=== PATIENT | male | born 1940 | race Caucasian/White ===

== ENCOUNTER 2019-07-09 13:30 | Emergency (ER) | payer MEDICARE, OTHER ==
[~2019-07-09] VITALS: Ht 177.8 cm; Wt 86.2 kg
--- OUTSIDE RECORDS SUMMARY | ~2019-07-09 | XMS | Encounter Summary ---
Demographics + + + | Address | [address] | | | [place] [address] | + + + | Home Phone | | + + + | Preferred Language | Unknown | + + + | Marital Status | | + + + | Uatsdin Affiliation | MET | + + + | Race | White | + + + | Ethnic Group | Not or | + + + Author + + + | Author | [facility] | + + + | Organization | [facility] | + + + | Address | Unknown | + + + | Phone | Unavailable | + + + Support + + + + + | Name | Relationship | Address | Phone | + + + + + | Mary Jane Thompson | ECON | [address] | | | | | [place] | | | | | [address] | | + + + + + | Hansel Thompson | ECON | Unknown | | + + + + + | Brtitany Thompson | ECON | Unknown | | + + + + + Care Team Providers + +------+ + | Care Inclusion Internship Name | Role | Phone | + +------+ + | Alex Hernandez MD | PCP | | + +------+ + Reason for Visit + + + | Reason | Comments | + + + | Follow-up encounter | | + + + | Lab Results | | + + + Encounter Details +--------+ + + + + | Date | Type | Department | Care Team | Description | +--------+ + + + + | 04/25/ | Telephone | Otolaryngology | Maritza Phelan, | Follow-up encounter; | | 2012 | | Thyroid Services at | MD [address] | Lab Results | | | | [address] | [facility] | | | | | [address] | [place], [place] | | | | | Mailcode: [address]01 | [address] | | | | | [facility] | [phone] | | | | | [place], [place] | | | | | | [address] | | | | | | [phone] | | | +--------+ + + + + Social History + +-------+ +--------+------+ | Tobacco Use | Types | Packs/Day | Years | Date | | | | | Used | | + +-------+ +--------+------+ | Never Smoker | | | | | + +-------+ +--------+------+ + +---+---+---+ | Smokeless Tobacco: | | | | | Never Used | | | | + +---+---+---+ + + +---------+ + | Alcohol Use | Drinks/Week | oz/Week | Comments | + + +---------+ + | Yes | 1 Standard drinks | 0.8 | | | | or equivalent | | | + + +---------+ + + + + | Sex Assigned at | Date Recorded | | | | + + + | Not on file | | + + + + + + + | Job Start Date | Occupation | Industry | + + + + | Not on file | Not on file | Not on file | + + + + + + + + | Travel History | Travel Start | Travel End | + + + + + + | No recent travel history available. | + + documented as of this encounter Plan of Treatment Not on filedocumented as of this encounter Procedures + +--------+ + + + | Procedure Name | Priori | Date/Time | Associated Diagnosis | Comments | | | ty | | | | + +--------+ + + + | POTASSIUM, PLASMA | Routin | 05/23/2013 | | Results for this | | | e | | | procedure are in the | | | | | | results section. | + +--------+ + + + | COMPLETE METABOLIC | Routin | 05/16/2013 | | Results for this | | SET | e | | | procedure are in the | | (NA,K,CL,CO2,BUN,CRE | | | | results section. | | AT,GLUC,CA,AST,ALT,B | | | | | | KAYDEN TOTAL,ALK | | | | | | PHOS,ALB,PROT TOTAL) | | | | | + +--------+ + + + | CBC ONLY | Routin | 05/16/2013 | | Results for this | | | e | | | procedure are in the | | | | | | results section. | + +--------+ + + + documented in this encounter Results POTASSIUM, PLASMA (05/23/2013) + +-------+ + + + | Component | Value | Ref Range | Performed | Pathologist | | | | | At | Signature | + +-------+ + + + | POTASSIUM | 3.7 | 3.6 - 5.1 | [facility] | | | | | mmol/L | LAB - | | | | | | [facility] | | + +-------+ + + + + + | Specimen | + + | Blood - Blood | + + + + + + + | Performing | Address | City/State/Zipcode | Phone Number | | Organization | | | | + + + + + | [facility] - | [address] | [place] | [phone] | | [facility] | | | | + + + + + CBC ONLY (05/16/2013) + + + + + + | Component | Value | Ref Range | Performed | Pathologist | | | | | At | Signature | + + + + + + | WHITE CELL | 9.8 | 4.5 - 11.0 K/cu | [facility] | | | COUNT | | mm | LAB - | | | | | | [facility] | | + + + + + + | RED CELL | 4.71 | 4.3 - 5.7 M/cu | [facility] | | | COUNT | | mm | LAB - | | | | | | [facility] | | + + + + + + | HEMOGLOBIN | 16.5 | 13.5 - 18.0 | [facility] | | | | | g/dL | LAB - | | | | | | [facility] | | + + + + + + | HEMATOCRIT | 48.8 | 41 - 50 % | [facility] | | | | | | LAB - | | | | | | [facility] | | + + + + + + | MCV | 103.6 (A) | 81 - 99 fL | [facility] | | | | | | LAB - | | | | | | [facility] | | + + + + + + | MCH | 35 (A) | 27 - 33 pg | [facility] | | | | | | LAB - | | | | | | [facility] | | + + + + + + | MCHC | 34 | 30 - 36 g/dL | [facility] | | | | | | LAB - | | | | | | [facility] | | + + + + + + | PLATELET | 255 | 140 - 440 K/cu | [facility] | | | COUNT | | mm | LAB - | | | | | | [facility] | | + + + + + + | NEUTROPHIL | 80.1 (A) | 39 - 80 % | [facility] | | | % | | | LAB - | | | | | | [facility] | | + + + + + + | LYMPHOCYTE | 14.1 (A) | 24 - 44 % | [facility] | | | % | | | LAB - | | | | | | [facility] | | + + + + + + | MONOCYTE % | 3.2 | 0 - 12 % | [facility] | | | | | | LAB - | | | | | | [facility] | | + + + + + + | EOS % | 2.3 | 0 - 6 % | [facility] | | | | | | LAB - | | | | | | [facility] | | + + + + + + | BASO % | 0.4 | 0 - 2 % | [facility] | | | | | | LAB - | | | | | | [facility] | | + + + + + + | RDW | 15.1 (A) | 10.5 - 15.0 % | [facility] | | | | | | LAB - | | | | | | [facility] | | + + + + + + + + | Specimen | + + | Blood - Blood | + + + + + + + | Performing | Address | City/State/Zipcode | Phone Number | | Organization | | | | + + + + + | [facility] - | [address] | [place], [place] | [phone] | | [facility] | | | | + + + + + COMPLETE METABOLIC SET (NA,K,CL,CO2,BUN,CREAT,GLUC,CA,AST,ALT,BILI TOTAL,ALK PHOS,ALB,PROT TOTAL) (05/16/2013) + +---------+ + + + | Component | Value | Ref Range | Performed | Pathologist | | | | | At | Signature | + +---------+ + + + | GLUCOSE, | 80 | 70 - 100 mg/dL | [facility] | | | PLASMA | | | LAB - | | | (LAB) | | | [facility] | | + +---------+ + + + | BUN/CREATIN | 15.2 | 6.0 - 28.6 | [facility] | | | INE RATIO | | | LAB - | | | | | | [facility] | | + +---------+ + + + | CREATININE | 1.32 | 0.50 - 1.50 | [facility] | | | PLASMA | | mg/dL | LAB - | | | (LAB) | | | [facility] | | + +---------+ + + + | TOTAL | 6.1 | 6.0 - 8.0 g/dL | [facility] | | | PROTEIN, | | | LAB - | | | PLASMA | | | [facility] | | | (LAB) | | | | | + +---------+ + + + | ALBUMIN, | 4.1 | 3.5 - 5.0 g/dL | [facility] | | | PLASMA | | | LAB - | | | (LAB) | | | [facility] | | + +---------+ + + + | CALCIUM, | 10.0 | 8.4 - 10.2 | [facility] | | | PLASMA | | mg/dL | LAB - | | | (LAB) | | | [facility] | | + +---------+ + + + | BILIRUBIN | 0.8 | 0.0 - 1.2 | [facility] | | | TOTAL | | Transcutaneous | LAB - | | | | | Bilirubinometer | [facility] | | + +---------+ + + + | ALK PHOS | 77 | 30 - 128 U/L | [facility] | | | | | | LAB - | | | | | | [facility] | | + +---------+ + + + | AST(SGOT) | 18 | 0 - 40 U/L | [facility] | | | | | | LAB - | | | | | | [facility] | | + +---------+ + + + | SODIUM, | 142 | 132 - 143 | [facility] | | | PLASMA | | mmol/L | LAB - | | | (LAB) | | | [facility] | | + +---------+ + + + | POTASSIUM, | 3.4 (A) | 3.6 - 5.1 | [facility] | | | PLASMA | | mmol/L | LAB - | | | (LAB) | | | [facility] | | + +---------+ + + + | CHLORIDE, | 101 | 95 - 112 mmol/L | [facility] | | | PLASMA | | | LAB - | | | (LAB) | | | [facility] | | + +---------+ + + + | TOTAL CO2, | 31 | 19 - 31 mmol/L | [facility] | | | PLASMA | | | LAB - | | | (LAB) | | | [facility] | | + +---------+ + + + | ALT (SGPT) | 29 | 0 - 46 U/L | [facility] | | | | | | LAB - | | | | | | [facility] | | + +---------+ + + + + + | Specimen | + + | Blood - Blood | + + + + + + + | Performing | Address | City/State/Zipcode | Phone Number | | Organization | | | | + + + + + | [facility] - | [address] | [place] | [phone] | | [facility] | | | | + + + + + documented in this encounter Visit Diagnoses + + | Diagnosis | + + | 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
--- OUTSIDE RECORDS SUMMARY | ~2019-07-09 | XMS | Encounter Summary ---
Demographics + + + | Address | [address] | | | [place] [address] | + + + | Home Phone | | + + + | Preferred Language | Unknown | + + + | Marital Status | | + + + | Mandaen Affiliation | MET | + + + | Race | White | + + + | Ethnic Group | Not or | + + + Author + + + | Author | [facility] | + + + | Organization | [facility] | + + + | Address | Unknown | + + + | Phone | Unavailable | + + + Support + + + + + | Name | Relationship | Address | Phone | + + + + + | Mary Jaen Thompson | ECON | [address] | | | | | [place] | | | | | [address] | | + + + + + | Hansel Thompson | ECON | Unknown | | + + + + + | Brittany Thompson | ECON | Unknown | | + + + + + Care Team Providers + +------+ + | Care Staffing Mgr Name | Role | Phone | + +------+ + | Alex Hernandez MD | PCP | | + +------+ + Encounter Details +--------+ + + + + | Date | Type | Department | Care Team | Description | +--------+ + + + + | 06/24/ | [employer] | Otolaryngology | Maritza Phelan, | | | 2012 | | Thyroid Services at | MD [address] | | | | | [address] | [facility] | | | | | [address] | [place], [place] | | | | | Mailcode: [address] | [address] | | | | | [facility] | [phone] | | | | | [place], [place] | | | | | | [address] | | | | | | [phone] | | | +--------+ + + + [...] + + +---------+ + | Yes | 14 Standard drinks | 11.7 | | | | or equivalent | [...] | + +--------+ + + + | FREE T3, SERUM | Routin | 06/23/2013 | | Results for this | | | e | | | procedure are in the | | | | | | results section. | + +--------+ + + + | COMPLETE METABOLIC | Routin | 06/23/2013 | | Results for this | | SET | e | | | procedure are in the | | (NA,K,CL,CO2,BUN,CRE | | | | results section. | | AT,GLUC,CA,AST,ALT,B | | | | | | KAYDEN TOTAL,ALK | | | | | | PHOS,ALB,PROT TOTAL) | | | | | + +--------+ + + + | FREE T4 | Routin | 06/23/2013 | | Results for this | | | e | | | procedure are in the | | | | | | results section. | + +--------+ + + + | TSH | Routin | 06/23/2013 | | Results for this | | | e | | | procedure are in the | | | | | | results section. | + +--------+ + + + documented in this encounter Results FREE T3, SERUM (06/23/2013) + + + + + + | Component | Value | Ref Range | Performed | Pathologist | | | | | At | Signature | + + + + + + | FREE T3 | 2.35 (A) | 2.5 - 4.3 pg/mL | [facility] | | | | | [...] - | [address] | [place], [place] | [phone] | | [facility] | | | | + + + + + COMPLETE METABOLIC SET (NA,K,CL,CO2,BUN,CREAT,GLUC,CA,AST,ALT,BILI TOTAL,ALK PHOS,ALB,PROT TOTAL) (06/23/2013) + +---------+ + + + | Component | Value | Ref Range | Performed | Pathologist | | | | | At | Signature | + +---------+ + + + | GLUCOSE, | 81 | 70 - 100 mg/dL | [facility] | | | PLASMA | | | LAB - | | | (LAB) | | | [facility] | | + +---------+ + + + | BUN, PLASMA | 15 | 6 - 23 mg/dL | [facility] | | | (LAB) | | | LAB - | | | | | | [facility] | | + +---------+ + + + | CREATININE | 1.25 | 0.50 - 1.50 | [facility] | | | PLASMA | | mg/dL | LAB - | | | (LAB) | | | [facility] | | + +---------+ + + + | TOTAL | 6.5 | 6.0 - 8.0 g/dL | [facility] | | | PROTEIN, | | | LAB - | | | PLASMA | | | [facility] | | | (LAB) | | | | | + +---------+ + + + | ALBUMIN, | 4.3 | 3.5 - 5.0 g/dL | [facility] | | | PLASMA | | | LAB - | | | (LAB) | | | [facility] | | + +---------+ + + + | CALCIUM, | 9.6 | 8.4 - 10.2 | [facility] | [...] + + + | ALK PHOS | 90 | 30 - 128 U/L | [facility] | | | | | | LAB - | | | | | | [facility] | | + +---------+ + + + | AST(SGOT) | 14 | 0 - 40 U/L | [facility] | | | | | | LAB - | | | | | | [facility] | | + +---------+ + + + | SODIUM, | 143 | 132 - 143 | [facility] | | | PLASMA | | mmol/L | LAB - | | | (LAB) | | | [facility] | | + +---------+ + + + | POTASSIUM, | 3.3 (A) | 3.6 - 5.1 | [facility] | | | PLASMA | | mmol/L | LAB - | | | (LAB) | | | [facility] | | + +---------+ + + + | CHLORIDE, | 102 | 95 - 112 mmol/L | [facility] | | | PLASMA | | | LAB - | | | (LAB) | | | [facility] | | + +---------+ + + + | TOTAL CO2, | 34 (A) | 19 - 31 mmol/L | [facility] | | | PLASMA | | | LAB - | | | (LAB) | | | [facility] | | + +---------+ + + + | ALT (SGPT) | 17 | 0 - 46 U/L | [facility] [...] + | [facility] - | [address] | [place] | [phone] | | [facility] | | | | + + + + + TSH (06/23/2013) + + + + + + | Component | Value | Ref Range | Performed | Pathologist | | | | | At | Signature | + + + + + + | TSH | 5.96 (A) | 0.270 - 4.20 | [facility] | | | | | uIU/ml | LAB - | | | | | | [facility] | | + + + + + + + + | Specimen | + + | Blood - Blood | + + + + + + + | Performing | Address | City/State/Zipcode | Phone Number | | Organization | | | | + + + + + | [facility] - | [address] | [place] | [phone] | | [facility] | | | | + + + + + FREE T4 (06/23/2013) + +-------+ + + + | Component | Value | Ref Range | Performed | Pathologist | | | | | At | Signature | + +-------+ + + + | FREE T4 | 1.7 | 0.7 - 1.7 ng/dL | [facility] | | | | | [...] | + + + + + | [facility] - | [address] | [place] | [phone] | | [facility] | | | | + + + + + documented in this encounter Visit Diagnoses Not on filedocumented in this encounter"
--- OUTSIDE RECORDS SUMMARY | ~2019-07-09 | XMS | Encounter Summary ---
Demographics + + + | Address | [address] | | | [place] [address] | + + + | Home Phone | | + + + | Preferred Language | Unknown | + + + | Marital Status | | + + + | Gnosticism Affiliation | MET | + + + | Race | White | + + + | Ethnic Group | Not or | + + + Author + + + | Author | [facility] | + + + | Organization | [facility] | + + + | Address | Unknown | + + + | Phone | Unavailable | + + + Support + + + + + | Name | Relationship | Address | Phone | + + + + + | Mary Jane Thompson | ECON | [address] | | | | | [place] | | | | | [address] | | + + + + + | Hansel Shabazzrick | ECON | Unknown | | + + + + + | Brittany Thompson | ECON | Unknown | | + + + + + Care Team Providers + +------+ + | Care Manager [employer] Name | Role | Phone | + +------+ + | Alex Hernandez MD | PCP | | + +------+ + Reason for Visit AUTH/CERT +--------+--------+ + + + + | Status | Reason | Specialty | Diagnoses / | Referred By | Referred To | | | | | Procedures | Contact | Contact | +--------+--------+ + + + + | Closed | | | | | | +--------+--------+ + + + + Encounter Details +--------+---------+ + + + | Date | Type | Department | Care Team | Description | +--------+---------+ + + + | 05/28/ | Surgery | 4N INTRA OP 3161 | Maritza Phelan, | TOTAL | | 2012 | | [address] | [address] | THYROIDECTOMY,specim | | | | [facility] [place] | [address] | en sent to pathology | | | | Ambulatory Surgery | [facility] [place] | | | | | Admitting Desk | [phone] | | | | | Located on the [facility] | [phone] | | | | | floor, Room [facility] | | | | | | [place], [place] | | | | | | [address] | | | +--------+---------+ + + + Social History + +-------+ [...] + + documented as of this encounter Last Filed Vital Signs + + + + + | Vital Sign | Reading | Time Taken | Comments | + + + + + | Blood Pressure | 155/91 | 05/29/2013 12:06 PM | | | | | PST | | + + + + + | Pulse | 83 | 05/29/2013 12:06 PM | | | | | PST | | + + + + + | Temperature | 36.7 C (98.1 F) | 05/29/2013 12:06 PM | | | | | PST | | + + + + + | Respiratory Rate | 16 | 05/29/2013 12:06 PM | | | | | PST | | + + + + + | Oxygen Saturation | 92% | 05/29/2013 12:06 PM | | | | | PST | | + + + + + | Inhaled Oxygen | - | - | | | Concentration | | | | + + + + + | Weight | 89.8 kg (198 lb) | 05/28/2013 9:00 AM | | | | | PST | | + + + + + | Height | 177.8 cm (5' 10") | 05/28/2013 9:00 AM | | | | | PST | | + + + + + | Body Mass Index | 28.41 | 05/28/2013 9:00 AM | | | | | PST | | + + + + + documented in this encounter Discharge Summaries Maritza Phelan MD - 05/29/2013 10:29 AM PSTAttending Note I personally interviewed the patient, duplicated the pertinent parts of the physical examin ation and personally formulated the plan with the resident. I have reviewed, entered my fin dings, and agree with the resident's documentation. Neck flat. OK to discharge home. Maritza Phelan M.D. Luisana Trimble MD - 05/29/2013 10:29 AM PST INPATIENT PHYSICIAN DISCHARGE SUMMARY Author: LUISANA MITCHELL MD Attending Physician: Maritza Phelan MD PCP: Cynthia Hernandez MD Admission Date: 05/28/2013 Discharge Date: 29 May 2013 Diagnoses Principal Final Diagnosis: 1. 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 Total thyroidectomy Brief Hospital Course The patient was taken to the OR on 05/28 for total thyroidectomy for multinodular goiter. There were no complications intra-operatively. The patient was admitted to floor for airway observation and post-operative management. On the floor the patient was stable and without c omplications. The patient had stable respiratory status on room air. The surgical incisions remained clean, dry, and intact. By date of discharge patient was tolerating regular diet w ithout abdominal pain, nausea or vomiting. The patient's pain was controlled with oral medic ations. He was informed on appropriate follow-up care and was discharged in good condition. Medications: Current Discharge Medication List START taking these medications Details Docusate Sodium 100 mg oral tablet Take 1 tablet by mouth two times daily. Qty: 60 tablet, Refills: 0 levothyroxine 150 mcg oral tablet Take 1 tablet by mouth once daily. Qty: 30 tablet, Refills: 3 oxyCODONE, immediate release, 5 mg oral tablet Take 1-3 tablets by mouth every three hours as needed for severe pain. Qty: 90 tablet, Refills: 0 CONTINUE these medications which have NOT CHANGED Details allopurinol 300 mg Oral tablet Take 150 mg by mouth once daily. AMITRIPTYLINE 25 mg oral tablet as needed. aspirin chewable 81 mg Oral tablet, chewable Take 81 mg by mouth once daily. atorvastatin 40 mg Oral tablet Take 40 mg by mouth once daily. CYCLOBENZAPRINE 10 mg oral tablet three times daily as needed. fluticasone 50 mcg/actuation Nasal [place], Suspension Instill 2 sprays into each nostril as needed. hydrochlorothiazide 25 mg oral tablet Take 25 mg by mouth once daily. HYDROCODONE-ACETAMINOPHEN 5-325 mg oral tablet as needed. LORAZEPAM 1 mg oral tablet as needed. potassium citrate SR 10 mEq oral tablet extended release Take 10 mEq by mouth once daily. 4 -6 tabs tamsulosin 0.4 mg Oral capsule,extended release 24hr Take 0.4 mg by mouth once daily. Diet Regular Regular diet- There are no restrictions to your diet. You may eat or drink whatever you pr efer, though healthy food choices are recommended. Other Discharge Orders and Instructions DISCHARGE AND INTERDISCIPLINARY INSTRUCTIONS Discharge Date: 05/29/2013 Service: Otolaryngology You or your family member have been primarily hospitalized for: Thyroidectomy Principal Final Diagnosis: multinodular goiter Additional Diagnoses:none Principal Procedure: Total Thyroidectomy Additional Procedures: None Reason for Admission, Significant Findings, Treatment, and Complications Brief Hospital Course: The patient underwent above procedure without complication. Voice good; No nausea; Pain under control; No breathing difficulties; Incision site flat. Discharge Medications: Current Medication List : Name ALLOPURINOL 300 MG TABLET, Sig Take 150 mg by mouth once daily. Name AMITRIPTYLINE 25 MG TABLET, Sig as needed. Name ASPIRIN 81 MG CHEWABLE TABLET, Sig Take 81 mg by mouth once daily. Name ATORVASTATIN 40 MG TABLET, Sig Take 40 mg by mouth once daily. Name CYCLOBENZAPRINE 10 MG TABLET, Sig three times daily as needed. Name FLUTICASONE 50 MCG/ACTUATION NASAL SPRAY, SUSP, Sig Instill 2 sprays into each nostril as needed. Name HYDROCHLOROTHIAZIDE 25 MG TABLET, Sig Take 25 mg by mouth once daily. Name HYDROCODONE 5 MG-ACETAMINOPHEN 325 MG TABLET, Sig as needed. Name LORAZEPAM 1 MG TABLET, Sig as needed. Name POTASSIUM CITRATE ER 10 MEQ (1,080 MG) TABLET,EXTENDED RELEASE, Sig Take 10 mEq by daina th once daily. 4-6 tabs Name TAMSULOSIN ER 0.4 MG CAPSULE,EXTENDED RELEASE 24 HR, Sig Take 0.4 mg by mouth once karlee ly. Oxycodone Docusate Synthroid 150mg Diet: Soft or Regular as tolerated. Activity: No heavy lifting or driving for 3-4 days. No driving while taking opioid pain med ications such as oxycodone. OK to shower. 1. Apply an oily product (such as mineral oil) daily to the incision to get the Dermabond ( glue) off. After the Dermabond comes off, if you wish, you may apply an over the counter sca r product to the incision. Use sunscreen on it for 6 months if the incision is going to be e xposed to the sun. 2. Have your referring physician (primary care or forming machine tender) check a TSH level in [facility] ut 6 - 8weeks. If you experience progressive fatigue before the 6-8 week period, have your d octor check the TSH level sooner. Special Instructions: Do not take Aspirin or nonsteroidal anti-inflammatory pain medications such as Motrim, Advi l, etc for one week. You may begin to sing in 2-3 days, please start slowly. Call: and page ENT resident event management consultant if you have any of the following: Difficulty breathing or unusual shortness of breath Excessive welling, bleeding or drainage at the operative site Fevers, chills, increased pain that is not relieved by pain medications Persistent nausea or vomiting Follow Up Appointments: Follow up with Dr Phelan 06/06 1:15pm It is ok to follow up with your PCP at this time inst ead if everything is going well, you would then need to set up a phone appointment with Dr Tristen gaitan to discuss pathology. Please make a follow up appointment in 3-[address] Vaughan Condition On Discharge: Good Vital Signs at discharge: BP: 152/90 mmHg (05/29/13900) Pulse: 86 (05/29/13900) Resp: 16 (05/29/13900) Weight: 89.812 kg (198 lb) (05/28/13899) Discharge Patient To: Home Discharge Summary Completed?: Yes Discharging Provider: LUISANA MITCHELL MD Date & Time Completed: 05/29/2013 10:22 AM Discharging Attending: Maritza Phelan MD Schedule the following appointment(s) when you get home Follow up with Hua VAUGHAN MD. Schedule an appointment as soon as possible for a visit in 3 weeks. Contact information [facility] [address] [place] [address] [phone] POST op PTH 82.7 POD#1 Ca2+ 9.1, MG+ 1.7 Vitals on discharge: Ht 1.778 m (5' 10"), Wt 89.812 kg (198 lb), BP 152/90, Pulse 86, [place] rature 37 C (98.6 F), RR 16, SpO2 91%, BMI 28.41 kg/(m^2). Outstanding labs/studies: Pathology Discharging Physician: LUISANA MITCHELL MD Attending Physician: Maritza Phelan MD documented in this e ncounter Discharge Instructions Instructions Alivia Lyn RN - 05/29/2013Patient Education Materials: AVS and DC pa perwork Additional Instructions: AVS reviewed with pt and family in room Discharge Nurse: ALIVIA LYN RN Date: 05/29/2013 Discharge Time: 12:42 PM AttachmentsThe following attachments cannot be sent through Care Everywhere.OXYCODONE (ENGL ELIZABETH)LEVOTHYROXINE (LATVIAN)THYROID SURGERY : POSTOP (LATVIAN)docusatedocumented in this enco unter Medications at Time of Discharge + + + +---------+ + + | Medication | Sig | Dispensed | Refills | Start | End Date | | | | | | Date | | + + + +---------+ + + | allopurinol 300 mg | Take 150 mg by mouth | | 0 | | | | Oral tablet | once daily. | | | | | + + + +---------+ + + | AMITRIPTYLINE 25 | as needed. | | 0 | 04/28/20 | | | mg oral tablet | | | | 13 | | + + + +---------+ + + | aspirin chewable | Take 81 mg by mouth | | 0 | | | | 81 mg Oral tablet, | once daily. | | | | | | chewable | | | | | | + + + +---------+ + + | atorvastatin 40 mg | Take 40 mg by mouth | | 0 | | | | Oral tablet | once daily. | | | | | + + + +---------+ + + | CYCLOBENZAPRINE 10 | three times daily as | | 0 | 05/21/20 | | | mg oral tablet | needed. | | | 13 | | + + + +---------+ + + | Docusate Sodium | Take 1 tablet by | 60 | 0 | 05/29/20 | | | 100 mg oral tablet | mouth two times | tablet | | 13 | | | | daily. | | | | | + + + +---------+ + + | fluticasone 50 | Instill 2 sprays | | 0 | | | | mcg/actuation Nasal | into each nostril as | | | | | | [place], Suspension | needed. | | | | | + + + +---------+ + + | | Take 25 mg by mouth | | 0 | | | | hydrochlorothiazide | once daily. | | | | | | 25 mg oral tablet | | | | | | + + + +---------+ + + | | as needed. | | 0 | 04/10/20 | | | HYDROCODONE-ACETAMIN | | | | 13 | | | OPHEN 5-325 mg oral | | | | | | | tablet | | | | | | + + + +---------+ + + | levothyroxine 150 | Take 1 tablet by | 30 | 3 | 05/29/20 | | | mcg oral tablet | mouth once daily. | tablet | | 13 | | + + + +---------+ + + | LORAZEPAM 1 mg | as needed. | | 0 | 05/15/20 | | | oral tablet | | | | 13 | | + + + +---------+ + + | oxyCODONE, | Take 1-3 tablets by | 90 | 0 | 05/29/ | | | immediate release, 5 | mouth every three | tablet | | 13 | | | mg oral tablet | hours as needed for | | | | | | | severe pain. | | | | | + + + +---------+ + + | potassium citrate | Take 10 mEq by mouth | | 0 | | | | SR 10 mEq oral | once daily. 4-6 | | | | | | tablet extended | tabs | | | | | | release | | | | | | + + + +---------+ + + | tamsulosin 0.4 mg | Take 0.4 mg by mouth | | 0 | | | | Oral | once daily. | | | | | | capsule,extended | | | | | | | release 24hr | | | | | | + + + +---------+ + + documented as of this encounter Progress Notes Juno Montenegro MD - 05/29/2013 8:17 AM PSTFormatting of this note might be different fro m the original. Otolaryngology / Head and Neck Surgery Progress Note Date: 05/29/2013 Hospital Day:1 Author; JUNO MONTENEGRO MD Attending Physician: Maritza Phelan MD Subjective/Interval History: No acute events Poor sleep Voice raspy No SOB or difficulty breathing Pain controlled Last Vitals: BP 155/86 | Pulse 88 | Temp 37 C (98.6 F) | RR 16 | Ht 1.778 m (5' 10") | Wt 89.812 kg (198 lb) | SpO2 93% | BMI 28.41 kg/(m^2) 24 Hour Vitals: Temp Av.8 C (98.2 F) Min: 36.4 C (97.5 F) Max: 37 C (98.6 F) Pulse Av.2 Min: 78 Max: 98 Systolic (24hrs), Av mmHg, Min:140 mmHg, Max:163 mmHgDiastolic (24hrs), Av mmHg, M in:83 mmHg, Max:98 mmHg SpO2 Av.3 % Min: 91 % Max: 97 % Resp Av Min: 11 Max: 17 Intake/Output Summary (Last 24 hours) at 05/29/13 0817 Last data filed at 05/29/13 0206 Gross per 24 hour Intake 4248 ml Output 1000 ml Net 3248 ml Drains: none Physical Exam: Gen: NAD, awake and alert, voice strong HEENT: neck soft and flat Incision: clean, dry and intact with dermabond Resp: comfortable, unlabored, no stridor Labs: Chemistries: Last 72 Hours (or 3 results): Recent Labs 05/29/13 0516 CA 9.1 MG 1.7* CBC with diff last 72 hours (or 3 results) No results found for this basename: WBC, HB, HCT, PLT, NEUTROPERC, BANDPCT, LYMPHPERC, MONO PERC, BASOPERC, EOSPERC, in the last 72 hours Coags: No components found with this basename: inr, ptt, pt CBG's: Last CBG's POC Lab Results Component Value Date GLU 80 05/16/2013 GLU 209* 04/24/2013 Imaging: No images for this encounter. Assessment and Plan: Dada Thompson is a 73 y.o. male who is POD #1 s/p total thyroidecto my. Post-operative PTH was 82.7. Regular diet as tolerated Tylenol and oxycodone for pain Home meds restarted Chkmpydisttgp585 mcg daily Will replace Mg Anticipate discharge today This patient was seen and examined on ENT rounds, and our team agrees with this assessment and plan. JUNO MONTENEGRO MD Otolaryngology Head and Neck Surgery PGY2 pager [phone] illy Ray M D - 05/28/2013 9:40 PM PST HEAD & NECK SURGERY POST-OP NOTE: Attending Physician: Maritza Phelan MD 05/28/2013 ID: Dada Thompson is a 73 y.o. male with FTC. PROCEDURE: 1. Total thyroidectomy INTERVAL HX: - Pain controlled - Tolerating PO - Ambulating - Denies isaias-oral or distal finger paraesthesias - No complaints OBJECTIVE: Systolic (24hrs), Av mmHg, Min:140 mmHg, Max:163 mmHg Diastolic (24hrs), Av mmHg, Min:83 mmHg, Max:98 mmHg Pulse Av.1 Min: 78 Max: 98 Temp Av.7 C (98 F) Min: 36.4 C (97.5 F) Max: 36.9 C (98.4 F) Resp Av.8 Min: 11 Max: 17 SpO2 Av.3 % Min: 91 % Max: 97 % Intake/Output Summary (Last 24 hours) at 05/28/13 2140 Last data filed at 05/28/13 2100 Gross per 24 hour Intake 3243 ml Output 800 ml Net 2443 ml PHYSICAL EXAM: General: Alert and oriented, NAD HEENT: Neck flat, incision well approximated with Dermabond, voice strong Respiratory: Unlabored Extremities: Warm and well perfused ASSESSMENT AND PLAN: Dada Thompson is a 73 y.o. male POD#0 s/p total thyroidectomy. 1. Pain control 2. Encourage PO 3. Ambulate/OOB 4. Anticipate DC home tomorrow WILLY CAT MD ] documented in thi s encounter Plan of Treatment Not on filedocumented as of this encounter Procedures + +--------+ + + + | Procedure Name | Priori | Date/Time | Associated Diagnosis | Comments | | | ty | | | | + +--------+ + + + | TOTAL THYROIDECTOMY | Routin | 08/19/2015 | | Results for this | | | e | 8:52 PM | | procedure are in the | | | | PST | | results section. | + +--------+ + + + | PROCEDURE NOTE | Routin | 08/19/2015 | | Results for this | | | e | 8:50 PM | | procedure are in the | | | | PST | | results section. | + +--------+ + + + | MAGNESIUM, PLASMA | Routin | 05/29/2013 | | Results for this | | | e | 5:16 AM | | procedure are in the | | | | PST | | results section. | + +--------+ + + + | CALCIUM, PLASMA | Routin | 05/29/2013 | | Results for this | | | e | 5:16 AM | | procedure are in the | | | | PST | | results section. | + +--------+ + + + | PTH - OPERATIVE | Routin | 05/28/2013 | | Results for this | | | e | 2:15 PM | | procedure are in the | | | | PST | | results section. | + +--------+ + + + | THYROIDECTOMY | Electi | 05/28/2013 | Nontoxic | | | | ve | 10:57 AM | multinodular goiter | | | | Surgic | PST | | | | | al | | | | + +--------+ + + + +---+--------+ | | | | | Specia | | | l | | | Needs | | | 23 HR | | | OB | +---+--------+ + +--------+ +---+ + | SURGICAL PATHOLOGY | Routin | 05/28/2013 | | Results for this | | | e | | | procedure are in the | | | | | | results section. | + +--------+ +---+ + documented in this encounter Results TOTAL THYROIDECTOMY (08/19/2015 8:52 PM PST)PROCEDURE NOTE (08/19/2015 8:50 PM PST) + + | Transcriptions | + + | Other, Faculty - 05/31/2013 10:54 AM PST | + + MAGNESIUM, PLASMA (05/29/2013 5:16 AM PST) + +---------+ + + + | Component | Value | Ref Range | Performed | Pathologist | | | | | At | Signature | + +---------+ + + + | MAGNESIUM,P | 1.7 (L) | 1.8 - 2.5 mg/dL | [facility] | | | LASMA | | | LABORATORY | | | | | | SERVICES, | | | | | | CORE | | + +---------+ + + + + + | Specimen | + + | Blood - Blood | + + + + + + + | Performing | Address | City/State/Zipcode | Phone Number | | Organization | | | | + + + + + | [facility] | [address] | [place] [address] | | | SERVICES, CORE | [address] | | | + + + + + CALCIUM, PLASMA (05/29/2013 5:16 AM PST) + +-------+ + + + | Component | Value | Ref Range | Performed | Pathologist | | | | | At | Signature | + +-------+ + + + | CALCIUM, | 9.1 | 8.6 - 10.2 | [facility] | | | PLASMA | | mg/dL | LABORATORY | | | (LAB) | | | SERVICES, | | | | | | CORE | | + +-------+ + + + + + | Specimen | + + | Blood - Blood | + + + + + + + | Performing | Address | City/State/Zipcode | Phone Number | | Organization | | | | + + + + + | [facility] | [address] | [place] [address] | | | SERVICES, CORE | [address] | | | + + + + + PTH - OPERATIVE (05/28/2013 2:15 PM PST) + +-------+ + + + | Component | Value | Ref Range | Performed | Pathologist | | | | | At | Signature | + +-------+ + + + | PTH - | 82.70 | pg/mL | [facility] | | | OPERATIVE | | | REFERENCE | | | | | | LAB | | + +-------+ + + + | TIME - PTH | 1415 | Hrs:mins | [facility] | | | | | | REFERENCE | | | | | | LAB | | + +-------+ + + + | COMMENT-PTH | post | | [facility] | | | | | | REFERENCE | | | | | | LAB | | + +-------+ + + + + + | Specimen | + + | Blood - Blood | + + + + + | Narrative | Performed At | + + + | Test performed by: [facility] | [facility] | | [facility] [address] [place], [place] | REFERENCE LAB | | [id number] Corrected Collection Date from 05/27/13 | | + + + + + + + + | Performing | Address | City/State/Zipcode | Phone Number | | Organization | | | | + + + + + | [facility] | | | | + + + + + | [facility] | see below | | | + + + + + SURGICAL PATHOLOGY (05/28/2013) + + + + + + | Component | Value | Ref Range | Performed | Pathologist | | | | | At | Signature | + + + + + + | SURGICAL | SOURCE OF SPECIMEN:A | | [facility] | | | PATHOLOGY | Total thyroidectomy | | DEPARTMENT | | | | Final Pathologic | | OF | | | | Diagnosis:Thyroid, total | | PATHOLOGY | | | | thyroidectomy: - | | | | | | 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 The | | | | | | papillarythyroid | | | | | | carcinoma was located in | | | | | | the right upper lobe. | | | | | | The specimen wasexamined | | | | | | in its entirety. Marin | | | | | | slides reviewed by | | | | | | Renny Mosquera | | | | | | withagreement. | | | | | | Thyroid Resection Cancer | | | | | | SynopsisProcedure: | | | | | | Total | | | | | | thyroidectomySpecimen | | | | | | Integrity: | | | | | | IntactSpecimen Size: | | | | | | Right lobe 4.5 x 3.9 x | | | | | | 2.5cmLeft lobe 4.5 x 3.6 | | | | | | x 2.5cmIsthmus (+ or -) | | | | | | pyramidal lobe: 2 x 1.5 | | | | | | x 0.4cmTumor Focality: | | | | | | UnifocalDominant | | | | | | TumorTumor Laterality: | | | | | | Right lobeTumor Size: | | | | | | Greatest | | | | | | dimension: | | | | | | 1.1cmHistologic Type: | | | | | | Papillary | | | | | | carcinomaVariant: | | | | | | Classical | | | | | | (usual)Architecture: | | | | | | Classical | | | | | | (papillary)Cytomorpholog | | | | | | y: | | | | | | ClassicalMargins: | | | | | | Negative for | | | | | | carcinomaTumor Capsule: | | | | | | Totally | | | | | | encapsulatedAngiolymphat | | | | | | ic Invasion: | | | | | | AbsentExtrathyroidal | | | | | | Extension: Not | | | | | | identifiedAJCC Stage | | | | | | (7th Edition) | | | | | | (pTNM)Primary Tumor | | | | | | (pT): jH9uPmghogrn Lymph | | | | | | Nodes (pN): | | | | | | hT1Cboucu of regional | | | | | | lymph nodes involved: | | | | | | 0Number of regional | | | | | | lymph nodes examined: | | | | | | 3Distant Metastasis | | | | | | (pM): Not applicable | | | | | | Case seen | | | | | | by:Cielo Davila, | | | | | | MJoseph/Surgical Pathology | | | | | | FellowAlonso Thomas | | | | | | Mane Suresh, | | | | | | Ph.D./Pathologist | | | | | | Clinical History:The | | | | | | patient is a 73-year-old | | | | | | male. 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 | | | | | | Gross | | | | | | Description:Received is | | | | | | 1 specimen fresh in a | | | | | | container labeled with | | | | | | the patient | | | | | | name(initials AK) and | | | | | | "total thyroidectomy | | | | | | suture fay left lobe." | | | | | | Specimen: | | | | | | Total | | | | | | thyroidectomyWeight: | | | | | | 32.6 gramsSize: | | | | | | 7.5 | | | | | | (ML) x 4.5 (SI) x 2.7 | | | | | | (AP) cmOrientation: | | | | | | By suture, as | | | | | | above.Lobe sizes: | | | | | | Left lobe measures | | | | | | 4.5 (SI) x 3.6 (ML) x | | | | | | 2.5 (AP) cmRight lobe | | | | | | measures 4.5 (SI) x 3.9 | | | | | | (ML) x 2.5 (AP) | | | | | | cmIsthmus measures 2 | | | | | | (SI) x 1.5 (ML) x 0.4 | | | | | | (AP) cmOuter surface: | | | | | | Red-brown, | | | | | | lobular, and | | | | | | cauterizedParathyroid | | | | | | gland: None grossly | | | | | | identifiedInking scheme: | | | | | | The anterior right and | | | | | | left lobes are inked | | | | | | blue, theposterior of | | | | | | the entire specimen is | | | | | | inked black, and the | | | | | | anterior of theisthmus | | | | | | is inked green The | | | | | | specimen is serially | | | | | | sectioned revealing a | | | | | | well-circumscribed, | | | | | | round,yellow-cage, | | | | | | necrotic appearing | | | | | | nodule in the superior | | | | | | pole of the rightlobe | | | | | | measuring 1.1 x 1 x 1 | | | | | | cm. There are two | | | | | | well-circumscribed, | | | | | | white-tannodules in the | | | | | | left lobe: one measures | | | | | | 1.3 x 0.9 x 0.9 cm and | | | | | | is located inthe | | | | | | superior pole of the | | | | | | left lobe; the second | | | | | | measures 0.8 x 0.4 x 0.4 | | | | | | cmand is in the middle | | | | | | of the left lobe. | | | | | | There is no | | | | | | extracapsular | | | | | | extensionidentified | | | | | | grossly. The lesions | | | | | | appear to abut the | | | | | | capsule in both | | | | | | lobes.The remaining | | | | | | parenchyma is beefy, | | | | | | dark red, grossly | | | | | | unremarkable. | | | | | | Theentire specimen is | | | | | | submitted. | | | | | | Cassette Index:[id number], | | | | | | superior right lobeA4-8, | | | | | | mid right lobeA9-11, | | | | | | inferior right lobeA12, | | | | | | superior [id number], | | | | | | inferior -48, | | | | | | superior left | | | | | | [id number], middle left | | | | | | [id number], inferior | | | | | | left lobeNS:tp My | | | | | | electronic signature | | | | | | indicates that I have | | | | | | personally reviewed | | | | | | alldiagnostic slides, | | | | | | the gross and/or | | | | | | microscopic portion of | | | | | | thisreport and | | | | | | formulated the final | | | | | | diagnosis. | | | | | | Rendering Diagnostician: | | | | | | Alonso Suresh | | | | | | | | | | | | MJosephPathologistElectroni | | | | | | stefano Signed 05/30/2013 | | | | | | 12:45PM | | | | + + + + + + + + | Specimen | + + | | + + + + + + + | Performing | Address | City/State/Zipcode | Phone Number | | Organization | | | | + + + + + | [facility] | [address] | [place] [address] | | | PATHOLOGY | [address] | | | + + + + + documented in this encounter Visit Diagnoses + + | Diagnosis | + + | Nontoxic multinodular goiter | + + documented in this encounter Administered Medications + +--------+ +--------+------+------+ | Medication Order | MAR | Action | Dose | Rate | Site | | | Action | Date | | | | + +--------+ +--------+------+------+ | allopurinol (ZYLOPRIM) oral | Given | 05/29/20 | 150 mg | | | | dose 150 mg 150 mg, oral, DAILY, | | 13 9:07 | | | | | First dose on [facility] 05/29/13 at | | AM PST | | | | | 0900, Until Discontinued | | | | | | + +--------+ +--------+------+------+ +---+---+ | | | +---+---+ + +-------+ +-------+---+---+ | amitriptyline (ELAVIL) tablet | Given | 05/28/20 | 25 mg | | | | 25 mg 25 mg, oral, EVERY | | 13 9:05 | | | | | EVENING, First dose on Sun | | PM PST | | | | | 05/28/13 at 2100, Until | | | | | | | Discontinued | | | | | | + +-------+ +-------+---+---+ +---+---+ | | | +---+---+ + +-------+ +-------+---+---+ | atorvastatin (LIPITOR) tablet | Given | 05/28/20 | 40 mg | | | | 40 mg 40 mg, oral, DAILY, First | | 13 5:08 | | | | | dose on Sun05/28/13 at 1545, | | PM PST | | | | | Until Discontinued | | | | | | + +-------+ +-------+---+---+ +---+---+ | | | +---+---+ + +-------+ +-------+---+------+ | bupivacaine | Given | 05/28/20 | 10 mL | | Neck | | (MARCAINE,SENSORCAINE-MPF) 0.25 % | | 13 1:38 | | | | | (2.5 mg/mL) injection | | PM PST | | | | | INTRAPROCEDURE PRN, Starting Wed | | | | | | | 05/28/13 at 1338, Until Wed | | | | | | | 05/28/13 at 1405 | | | | | | + +-------+ +-------+---+------+ +---+---+ | | | +---+---+ + +---------+ +-------+-------+---+ | dextrose 5%-NaCl 0.45%-KCl 20 | New Bag | 05/28/20 | 100 | 100 | | | mEq/L IV infusion 100 mL/hr, | | 13 5:09 | mL/hr | mL/hr | | | intravenous, CONTINUOUS, Starting | | PM PST | | | | | Sun05/28/13 at 1630, Until Lelia | | | | | | | 05/29/13 at 0820 | | | | | | + +---------+ +-------+-------+---+ +---+---+ | | | +---+---+ + +---------+ +---------+---+---+ | HYDROmorphone (DILAUDID) | New Bag | 05/28/20 | 0.25 mg | | | | injection 0.2-0.5 mg 0.2-0.5 mg, | | 13 2:38 | | | | | intravenous, POSTPROCEDURE PRN, | | PM PST | | | | | Starting Sun05/28/13 at 1121, | | | | | | | Until Sun05/28/13 at 1627, | | | | | | | moderate pain | | | | | | + +---------+ +---------+---+---+ +---+---+ | | | +---+---+ + + + +---+---+---+ | lactated ringers IV 10 mL/hr, | given by | 05/28/20 | | | | | intravenous, PROCEDURE | | 13 1:30 | | | | | CONTINUOUS, Starting Sun05/28/13 | anesthes | PM PST | | | | | at 0915, Until Sun05/28/13 at | iology | | | | | | 1627 | | | | | | + + + +---+---+---+ +---------+ +---+---+---+ | New Bag | 05/28/20 | | | | | | 13 12:00 | | | | | | PM PST | | | | +---------+ +---+---+---+ | New Bag | 05/28/20 | | | | | | 13 10:44 | | | | | | AM PST | | | | +---------+ +---+---+---+ +---+---+ | | | +---+---+ + +-------+ +---------+---+---+ | levothyroxine tablet 150 mcg | Given | 05/29/20 | 150 mcg | | | | 150 mcg, oral, DAILY, First dose | | 13 9:08 | | | | | on Sun05/28/13 at 1630, Until | | AM PST | | | | | Discontinued | | | | | | + +-------+ +---------+---+---+ +-------+ +---------+---+---+ | Given | 05/28/20 | 150 mcg | | | | | 13 5:08 | | | | | | PM PST | | | | +-------+ +---------+---+---+ +---+---+ | | | +---+---+ + +-------+ +------+---+---+ | LORazepam (ATIVAN) tablet 1 mg | Given | 05/29/20 | 1 mg | | | | 1 mg, oral, EVERY 8 HOURS | | 13 2:04 | | | | | NEEDED, Starting 05/28/13 at | | AM PST | | | | | 1631, Until [facility] 05/29/13 at 1945, | | | | | | | anxiety | | | | | | + +-------+ +------+---+---+ +---+---+ | | | +---+---+ + +-------+ +--------+---+---+ | magnesium oxide (MAG-OX) tablet | Given | 05/29/20 | 400 mg | | | | 400 mg 400 mg, oral, ONCE, 1 | | 13 9:07 | | | | | dose, [facility] 05/29/13 at 0900 | | AM PST | | | | + +-------+ +--------+---+---+ +---+---+ | | | +---+---+ + +-------+ +-------+---+---+ | oxyCODONE (immediate release) | Given | 05/29/20 | 10 mg | | | | (ROXICODONE) tablet 5-15 mg 5-15 | | 13 1:12 | | | | | mg, oral, EVERY 3 HOURS | | PM PST | | | | | NEEDED, Starting Sun05/28/13 at | | | | | | | 1627, Until [facility] 05/29/13 at 1945, | | | | | | | severe pain | | | | | | + +-------+ +-------+---+---+ +-------+ +-------+---+---+ | Given | 05/29/20 | 10 mg | | | | | 13 7:00 | | | | | | AM PST | | | | +-------+ +-------+---+---+ | Given | 05/29/20 | 10 mg | | | | | 13 2:04 | | | | | | AM PST | | | | +-------+ +-------+---+---+ +---+---+ | | | +---+---+ + +---------+ +---------+---+---+ | promethazine (PHENERGAN) | New Bag | 05/28/20 | 12.5 mg | | | | injection 12.5 mg 12.5 mg, | | 13 2:41 | | | | | intravenous, ONCE, 1 dose, Wed | | PM PST | | | | | 05/28/13 at 1200 | | | | | | + +---------+ +---------+---+---+ + +---+ | | | + +---+ | promethazine (PHENERGAN) | | | injection 1 dose, Starting Wed | | | 05/28/13 at 1437, Until Wed | | | 05/28/13 at 1441 | | + +---+ | | | + +---+ + +-------+ +--------+---+---+ | tamsulosin (FLOMAX) capsule 0.4 | Given | 05/29/20 | 0.4 mg | | | | mg 0.4 mg, oral, DAILY, First | | 13 9:07 | | | | | dose on Sun05/28/13 at 1600, | | AM PST | | | | | Until Discontinued | | | | | | + +-------+ +--------+---+---+ +-------+ +--------+---+---+ | Given | 05/28/20 | 0.4 mg | | | | | 13 5:08 | | | | | | PM PST | | | | +-------+ +--------+---+---+ +---+---+ | | | +---+---+ + +-------+ +--------+---+------+ | thrombin 5000 unit topical | Given | 05/28/20 | 5,000 | | Neck | | solution INTRAPROCEDURE PRN, | | 13 11:35 | Units | | | | Starting Sun05/28/13 at 1135, | | AM PST | | | | | Until Sun05/28/13 at 1405 | | | | | | + +-------+ +--------+---+------+ +---+---+ | | | +---+---+ documented in this encounter
--- OUTSIDE RECORDS SUMMARY | ~2019-07-09 | XMS | Encounter Summary ---
Demographics + + + | Address | [address] | | | [place] [address] | + + + | Home Phone | | + + + | Preferred Language | Unknown | + + + | Marital Status | | + + + | Judaism Affiliation | 1073 | + + + | Race | Unknown | + + + | Ethnic Group | Unknown | + + + Author + + + | Author | [facility] | | | and [place] | + + + | Organization | [facility] | | | and [place] | + + + | Address | Unknown | + + + | Phone | Unavailable | + + + Support + + + + + | Name | Relationship | Address | Phone | + + + + + | Lien Thompson | ECON | [address] | | | | | [place] | | | | | [address] | | + + + + + | Dm Thompson | ECON | Unknown | | + + + + + Care Team Providers + +------+ + | Care Dry House Operator Name | Role | Phone | + +------+ + | Alex Hernandez MD | PCP | | + +------+ + Encounter Details +--------+ + + + + | Date | Type | Department | Care Team | Description | +--------+ + + + + | 06/18/ | Hospital | [facility] | Helen Pelayo MD | | | 2015 | Encounter | [facility] | [address] [facility] | | | | | [address] | [place], [place] | | | | | [place], [place] | [address] | | | | | [address] | [phone] | | | | | [phone] | | | +--------+ + + + + Social History + +-------+ +--------+------+ | Tobacco Use | Types | Packs/Day | Years | Date | | | | | Used | | + +-------+ +--------+------+ | Never Assessed | | | | | + +-------+ +--------+------+ + + + | Sex Assigned at [...] + + + | Blood Pressure | 129/80 | 06/18/2015 9:00 AM | | | | | PST | | + + + + + | Pulse | 77 | 06/18/2015 9:00 AM | | | | | PST | | + + + + + | Temperature | 36.7 C (98.1 F) | 06/18/2015 7:14 AM | | | | | PST | | + + + + + | Respiratory Rate | 18 | 06/18/2015 9:00 AM | | | | | PST | | + + + + + | Oxygen Saturation | 99% | 06/18/2015 9:00 AM | | | | | PST | | + + + + + | Inhaled Oxygen | - | - | | | Concentration | | | | + + + + + | Weight | 93.9 kg (207 lb) | 06/18/2015 7:14 AM | | | | | PST | | + + + + + | Height | 177.8 cm (5' 10") | 06/18/2015 7:14 AM | | | | | PST | | + + + + + | Body Mass Index | 29.7 | 06/18/2015 7:14 AM | | | | | PST | | + + + + + documented in this encounter Discharge Instructions Instructions Polly Laguerre RN - 06/18/2015Formatting of this note might be diffe rent from the original. Upper GI Endoscopy Upper GI endoscopy allows your doctor to look directly into the beginning of your gastroint estinal (GI) tract. The esophagus, stomach, and duodenum (the first part of the small intest ine) make up the upper GI tract. Before the Exam Follow these and any other instructions you are given before your endoscopy. If you don t follow the doctor s instructions carefully, the test may need to be cancelled or done ove r: Do not eat or drink anything after midnight the night before your exam. If your exam is in the afternoon, drink only clear liquids in the morning, and do not eat or drink anything for8 hours before the exam. Bring your X-rays and any other test results you have. Because you will be sedated, arrange for an adult to drive you home after the exam. Tell your health care provider before the exam if you are taking any medications or have any medical problems. The Procedure You will be asked to lie on the endoscopy table. Your throat may be numbed with a spray or gargle. You are given medication through an in travenous (IV) line that will help you relax and remain comfortable. You may be awake or asl eep during the procedure. The doctor will inset the endoscope into your mouth and down your esophagus.Itis thi nner than most pieces of food that you swallow. It will not affect your breathing. The medic ation helps keep you from gagging. Air is inserted to expand your GI tract. It can make you burp. The endoscope carries images of your upper GI tract to a video screen. If you are awake, you may be able to look at the images. After the procedure is done, you will rest for a time. An adult must drive you home. [phone] [employer]. [address] [place] [id number]. All righ ts reserved. This information is not intended as a substitute for professional medical care. Always follow your healthcare professional's instructions. Colonoscopy Colonoscopyis used to view the inside of your lower digestive tract (colon and rectum). I t can help screen for colon cancer and can help find the source of abdominal pain,bleeding ,and changes in bowel habits. The test is usually done in the hospital on an outpatient ba sis. During the exam, the doctor can remove a small tissue sample ( a biopsy) for testing. S mall growths, such as polyps, may also be removed during colonoscopy. Getting ready Be sure to tell your doctor about any medications you take. Alsotell your doctor about any health conditions you may have. Discuss the risks of the test with your doctor. These includebleeding and bowel punctu re. Your rectum and colon must be empty for the test. So be sure tofollow the diet and bow el prep instructions exactly. If you don t, the test may need to be rescheduled. Ask your doctor whether you need to have a friend or family member prepared to drive you home after the test. During the test You are given sedating (relaxing) medication through an IV line.You may be drowsy or c ompletely asleep. The procedure takes 30minutes or longer. The doctor performs a digital rectal exam to check for anal andrectal problems. The re ctum is lubricated and the scope inserted. If you are awake, you may have a feeling similar to needing to have a bowelmovement. Y ou may also feel pressure as air is pumped into the colon. It Nisha to pass gas during the procedure. After the test You may discuss the results with your doctor right away or at a future visit. Try to pass all the gas right after the test to help prevent bloating and cramping. After the test, you can go back to your normal eating andother activities. Risks and possible complications include: Bleeding A puncture or tear in the colon Risks of anesthesia [id number] [employer]. [address] [place] [address], [place] [address]. All righ ts reserved. This information is not intended as a substitute for professional medical care. Always follow your healthcare professional's instructions. documented in this encounter Medications at Time of Discharge + + + +---------+--------+ + | Medication | Sig | Dispensed | Refills | Start | End Date | | | | | | Date | | + + + +---------+--------+ + | allopurinol | Take 300 mg by mouth | | 0 | | | | (ZYLOPRIM) 300 mg | Daily. | | | | | | tablet | | | | | | + + + +---------+--------+ + | atorvaSTATin | Take 40 mg by mouth | | 0 | | | | (LIPITOR) 40 mg | nightly. | | | | | | tablet | | | | | | + + + +---------+--------+ + | cyclobenzaprine | Take 10 mg by mouth | | 0 | | | | (FLEXERIL) 10 mg | 3 times daily as | | | | | | tablet | needed for Muscle | | | | | | | spasms. | | | | | + + + +---------+--------+ + | fluticasone | 1 spray by Nasal | | 0 | | | | (FLONASE) 50 | route Daily. | | | | | | mcg/nasal spray | | | | | | + + + +---------+--------+ + | | Take 25 mg by mouth | | 0 | | | | hydrochlorothiazide | Daily. | | | | | | 50 mg tablet | | | | | | + + + +---------+--------+ + | levothyroxine | Take 175 mcg by | | 0 | | | | (SYNTHROID, | mouth every morning | | | | | | LEVOTHROID) 175 MCG | (before breakfast). | | | | | | tablet | | | | | | + + + +---------+--------+ + | LORazepam (ATIVAN) | Take 1 mg by mouth | | 0 | | | | 1 mg tablet | every 6 hours as | | | | | | | needed for Anxiety. | | | | | + + + +---------+--------+ + | Misc Natural | Take by mouth. | | 0 | | | | Products (OSTEO | | | | | | | BI-FLEX ADV DOUBLE | | | | | | | ST PO) | | | | | | + + + +---------+--------+ + | omeprazole | Take 20 mg by mouth | | 0 | | | | (PRILOSEC) 20 mg | every morning | | | | | | capsule | (before breakfast). | | | | | + + + +---------+--------+ + | potassium citrate | Take 20 mEq by mouth | | 0 | | | | (UROCIT-K) 10 mEq SR | 3 times daily (with | | | | | | tablet | meals). | | | | | + + + +---------+--------+ + | pseudoePHEDrine | Take 60 mg by mouth | | 0 | | | | (SUDAFED) 60 MG | every 4 hours as | | | | | | tablet | needed for | | | | | | | Congestion. | | | | | + + + +---------+--------+ + | aspirin 81 mg EC | Take 81 mg by mouth | | 0 | | | | tablet | Daily. | | | | 7 | + + + +---------+--------+ + | docusate sodium | Take 250 mg by mouth | | 0 | | | | (COLACE) 250 MG | Daily. | | | | 7 | | capsule | | | | | | + + + +---------+--------+ + | famotidine | Take 20 mg by mouth | | 0 | | | | (PEPCID) 20 mg | 2 times daily. | | | | 7 | | tablet | | | | | | + + + +---------+--------+ + | | Take 1 tablet by | | 0 | | | | oxyCODONE-acetaminop | mouth every 4 hours | | | | 7 | | hen (PERCOCET) 5-325 | as needed for Pain. | | | | | | mg per tablet | | | | | | + + + +---------+--------+ + | | Take 5 mLs by mouth | | 0 | | | | promethazine-codeine | 4 times daily as | | | | 7 | | (PHENERGAN WITH | needed for Cough. | | | | | | CODEINE) 6.25-10 | | | | | | | mg/5 mL syrup | | | | | | + + + +---------+--------+ + | tamsulosin | Take 0.4 mg by mouth | | 0 | | | | (FLOMAX) 0.4 mg CAPS | 2 times daily. | | | | 7 | + + + +---------+--------+ + documented as of this encounter Progress Notes Polly Laguerre RN - 06/18/2015 8:54 AM PSTAlert and oriented, vss, taking po flu ids well, passing flatus, up amb with stable gait and balance. Electronically signed by: Polly Laguerre RN 06/18/2015 8:54 documented in this encounter Plan of Treatment Not on filedocumented as of this encounter Procedures + +--------+ + + + | Procedure Name | Priori | Date/Time | Associated Diagnosis | Comments | | | ty | | | | + +--------+ + + + | COLONOSCOPY | Routin | 06/18/2015 | | Results for this | | | e | 8:28 AM | | procedure are in the | | | | PST | | results section. | + +--------+ + + + | EGD | Routin | 06/18/2015 | | Results for this | | | e | 8:06 AM | | procedure are in the | | | | PST | | results section. | + +--------+ + + + | EGD / COLONOSCOPY | | 06/18/2015 | Abdominal | | | | | 7:58 AM | discomfort, | | | | | PST | epigastric Benign | | | | | | adenomatous polyp of | | | | | | large intestine | | | | | | Acute constipation | | + +--------+ + + + | SURGICAL PATHOLOGY | Routin | 06/18/2015 | | Results for this | | EXAM | e | 12:00 AM | | procedure are in the | | | | PST | | results section. | + +--------+ + + + documented in this encounter Results COLONOSCOPY (06/18/2015 8:28 AM PST) + + + | Narrative | Performed At | + + + | Helen Pelayo MD 06/18/2015 8:28 PROCEDURE NOTE | [facility] | | PATIENT: Dada Thompson DATE OF : 1940 MEDICAL | [employer] | | RECORD NUMBER: [id number] REFERRING PROVIDER: Herbie Hernandez | | | ENDOSCOPIST: Helen Pelayo MD PROCEDURE PERFORMED: | | | Colonoscopy With snare polypectomy INDICATION: Screening | | | ANESTHESIA : Boston Kirby DESCRIPTION OF PROCEDURE: After the | | | risks, benefits and alternatives of the procedure were thoroughly | | | explained, informed consent was obtained. Digital rectal exam | | | showed external hemorrhoids, decreased sphincter tone and normal | | | prostate. The Olympus colonoscope was introduced through the | | | rectum and advanced to the cecum, which was identified by both the | | | appendix and the ileocecal valve. The instrument was then slowly | | | withdrawn as the mucosa was fully examined. FINDINGS: A 15mm | | | pedunculated rectosigmoid polyp was removed with hot snare. | | | Scattered diverticulosis throughout the colon with no signs of | | | bleeding. A normal appearing cecum, ileocecal valve and appendiceal | | | orifice were identified. Retroflexion showed internal | | | hemorrhoids. The scope was then completely withdrawn from the | | | patient and the procedure terminated. WITHDRAWAL TIME: 8 minutes | | | QUALITY OF PREP: fair- liquid stool in the right colon | | | COMPLICATIONS:none DIAGNOSTIC IMPRESSION: 1. 15mm rectosigmoid | | | polyp - removed with hot snare 2. Diverticulosis 3. Internal | | | and external hemorrhoids RECOMMENDATIONS: 1. Resume diet and | | | medications. 2. Continue miralax 3. High fibre diet. 4. | | | Call Dr. Pelayo's office if you develop increasing abdominal pain, | | | fever or passage of copious amount of blood per rectum. Repeat | | | exam: 3 years CC: Herbie Hernandez MD Electronically signed | | | eHlen Pelayo MD 06/18/2015 8:25 [facility] | | + + + + +---------+ + + | Performing | Address | City/State/Zipcode | Phone Number | | Organization | | | | + +---------+ + + | [facility] | | | | + +---------+ + + JOSE (06/18/2015 8:06 AM PST) + + + | Narrative | Performed At | + + + | Helen Pelayo MD 06/18/2015 8:06 PROCEDURE NOTE | [facility] | | PATIENT: Dada Thompson DATE OF : 1940 MEDICAL | [employer] | | RECORD NUMBER: [id number] DATE OF PROCEDURE: 06/18/15 | | | PROCEDURE PERFORMED: EGD with biopsy INDICATION: GERD, | | | epigastric pain, hoarseness ENDOSCOPIST: Pierce Dover MD | | | ANESTHESIA provided by Dr. Boston Kirby DESCRIPTION OF | | | PROCEDURE: After the risks, benefits and alternatives of the | | | procedure were thoroughly explained, informed consent was obtained. | | | The Olympus upper endoscope was introduced through the oropharynx, | | | and advanced to the descending duodenum. The instrument was | | | then slowly withdrawn as the mucosa was fully examined. | | | FINDINGS:: Non-obstructive schatzki's ring noted at 37cm. Z line | | | was seen at 37 cm. 2cm hiatal hernia. The gastric body, | | | antrum and pylorus appear erythematous. Biopsies were obtained | | | from gastric body and antrum for H. pylori. Retroflexion shows a | | | small hiatal hernia. The duodenal bulb and descending duodenum | | | appear normal. Biopsies were obtained from the duodenum to rule | | | out celiac disease. COMPLICATIONS: None. DIAGNOSTIC | | | IMPRESSION: 1. schatzki's ring 2. Hiatal hernia 3. gastritis | | | RECOMMENDATIONS: Continue with omeprazole 20mg po qday Avoid | | | aspirin, ibuprofen, Advil, Motrin. Tylenol only for pain. Follow | | | up with Dr. Pelayo in two weeks.. Call Dr. Pelayo's office if you develop | | | increasing abdominal pain, fever, or vomiting of blood after the | | | procedure. REPEAT EXAM: if patient develops dysphagia CC: | | | Herbie Hernandez MD | | + + + + +---------+ + + | Performing | Address | City/State/Zipcode | Phone Number | | Organization | | | | + +---------+ + + | [facility] | | | | + +---------+ + + Surgical Pathology Exam (06/18/2015 12:00 AM PST) + + | Specimen | + + | | + + + + + | Narrative | Performed At | + + + | SPECIMEN(S): A GASTRIC BIOPSY SPECIMEN(S): B RECTOSIGMOID POLYP AT | [facility] | | 25 CM SPECIMEN SOURCE: A. GASTRIC BIOPSY B. RECTOSIGMOID POLYP | [facility] | | AT 25 CM CLINICAL HISTORY: R10.13 (epigastric pain), K63.5 (polyp | | | of colon), K59.00 (constipation, unspecified) MICROSCOPIC | | | DESCRIPTION: Histologic sections of all submitted blocks are examined | | | by light microscopy. These findings, together with the gross | | | examination, support the pathologic diagnosis. A. No | | | Helicobacter-like organisms are identified with HE stain. In view of | | | the chronic inflammation, immunostains to detect Helicobacter pylori | | | is performed with appropriate external positive control tissues that | | | reactive as expected. No Helicobacter-like organisms are identified | | | immunostain. [facility] FINAL PATHOLOGIC DIAGNOSIS: A. Stomach, | | | biopsy: - Mild chronic superficial gastritis. - Negative for | | | atrophy, intestinal metaplasia or dysplasia. - Negative for | | | Helicobacter pylori. B. Colon, rectosigmoid at 25 cm, polypectomy: | | | - Tubular adenoma. [facility]:C2NR GROSS DESCRIPTION: A. | | | The specimen, received in formalin, labeled and designated | | | "Jay, gastric biopsy," consists of four 0.3 cm fragments. All | | | in (A1). B. The specimen, received in formalin, labeled and | | | designated "Ajy, rectosigmoid polyp at 25 cm," consists of two | | | 0.4 and 0.8 cm, polypoid tissue fragments. The smaller polypoid | | | fragment is inked blue and the larger polypoid fragment is inked | | | black. These fragments are sectioned and submitted all in (B1). | | | :[facility] ADDITIONAL NOTES: Immunohistochemical studies were | | | performed on this case with the appropriate negative and positive | | | controls that react as expected. This test was developed and its | | | performance characteristics determined by [facility]. It | | | has not been cleared or approved by the U.S. Food and Drug | | | Administration. The FDA has determined that such clearance or | | | approval is not necessary. This test is used for clinical purposes. | | | It should not be regarded as investigational or for research. | | | [facility] is certified under the Clinical Laboratory | | | Improvement Amendments of 1988 (CLIA) as qualified to perform high | | | complexity clinical laboratory testing. PERFORMING LABORATORY: | | | Tissue processing and slide preparation were performed by [facility] | | | [facility], [address] [place] [address] | | | (Priming Machine Operator: Renny Julien M.D.; CLIA#: [id number]). | | | Professional interpretation was performed by [facility], | | | [address] [place] [address] (Priming Machine Operator: | | | Renny Julien M.D.; CLIA#: [id number]). Diagnostician: Deo Hodge | | | Luis E RAMIRES Pathologist Electronically Signed 06/21/2015 | | + + + + +---------+ + + | Performing | Address | City[facility] | Phone Number | | Organization | | | | + +---------+ + + | [facility] | | | | | [facility] | | | | + +---------+ + + documented in this encounter Visit Diagnoses Not on filedocumented in this encounter Administered Medications + +---------+ +------+-------+------+ | Medication Order | MAR | Action | Dose | Rate | Site | | | Action | Date | | | | + +---------+ +------+-------+------+ | lactated ringers (LR) infusion | New Bag | 06/18/20 | | 100 | | | at 100 mL/hr, Intravenous, | | 15 7:48 | | mL/hr | | | CONTINUOUS, Starting 06/18/15 | | AM PST | | | | | at 0800, Pre-op | | | | | | + +---------+ +------+-------+------+ +---+---+ | | | +---+---+ documented in this encounter
--- OUTSIDE RECORDS SUMMARY | ~2019-07-09 | XMS | Encounter Summary ---
Demographics + + + | Address | [address] | | | [place] [address] | + + + | Home Phone | | + + + | Preferred Language | Unknown | + + + | Marital Status | | + + + | Pentecostalism Affiliation | 1073 | + + + | Race | Unknown | + + + | Ethnic Group | Unknown | + + + Author + + + | Author | [facility] | | | and [place] | + + + | Organization | [facility] | | | and [place] [...] [place] | | | | | [address] | | + + + + + | Dm Thompson | ECON | Unknown | | + + + + + Care Team Providers + +------+ + | Care Furniture Painter Name | Role | Phone | + +------+ + | Alex Hernandez MD | PCP | | + +------+ + Encounter Details +--------+ + + + + | Date | Type | Department | Care Team | Description | +--------+ + + + + | 06/18/ | Anesthesia | [facility] | Boston Kirby MD | | | 2015 | Event | [facility] OP | [address] | | | | | [address] | [place], [place] | | | | | [place], [place] | [address] | | | | | [address] | [phone] | | | | | [phone] | | | +--------+ + + + + Anesthesia Record + + + + + | Procedure Name | Responsible | Anesthesia Start | Anesthesia Stop Time | | | Anesthesiologist | Time | | + + + + + | EGD / COLONOSCOPY | Boston Kirby MD | 06/18/15 0757 | 06/18/15 0832 | | (N/A ) | | | | + + + + + +----+---+ + + | Da | T | Event | Comment | | te | i | | | | | m | | | | | e | | | +----+---+ + + | 12 | 0 | An Checkout | Pre-use anesthesia machine/equipment checkout. | | /0 | 7 | | | | 4/ | 5 | | | | 20 | 6 | | | | 15 | | | | +----+---+ + + | | 0 | | | | | 7 | | | | | 5 | | | | | 7 | | | +----+---+ + + | | 0 | An Start | Reassessment prior to anesthesia induction/procedure. | | | 7 | | | | | 5 | | | | | 7 | | | +----+---+ + + | | 0 | An | | | | 8 | Induction | | | | 0 | | | | | 0 | | | +----+---+ + + | | 0 | Breathing | | | | 8 | Spontaneous | | | | 0 | ly | | | | 1 | | | +----+---+ + + | | 0 | an stop | | | | 8 | data | | | | 2 | | | | | 4 | | | +----+---+ + + | | 0 | An Stop | Patient handed off to recovery nurse. | | | 3 | | | | | 2 | | | +----+---+ + + +------+ | Meds | +------+ + + + | Name | Total | + + + | propofol | 100 mg | + + + | propofol | 265.27 mg | + + + | lidocaine 2% | 50 mg | + + + | lactated ringers (LR) infusion | 400 mL | + + + + + | No agents on file. | + + + + | No blood administrations on file. | + + +--------+ + + + | Type | Details | Placement | Removal | +--------+ + + + | Periph | 06/18/15; 733; [id number] | 06/18/15733 by | 06/18/15905 by | | eral | catheter system; intradermal | Nevaeh Briggs, | Polly Flood | | IV | injection, tolerated well; no | RN | BRIAN Laguerre | | | longer indicated, catheter/device | | | | | intact; 06/18/15905 | | | +--------+ + + + | [READ | 06/18/15; 0757; 10/07/18 | 06/18/15 0757 by | 10/07/18 1643 by | | ONLY] | (Removed/Completed by utility); | Boston Kirby MD | User Epic | | | 1643 (Removed/Completed by | | | | Periph | utility) | | | | eral | | | | | IV - | | | | | Single | | | | | Lumen | | | | | | | | | +--------+ + + + documented in this encounter Social History + +-------+ +--------+------+ | Tobacco [...] Not on filedocumented as of this encounter Visit Diagnoses Not on filedocumented in this encounter Administered Medications + +--------+ +-------+------+------+ | Medication Order | MAR | Action | Dose | Rate | Site | | | Action | Date | | | | + +--------+ +-------+------+------+ | lidocaine (PF) 2% injection | Given | 06/18/20 | 50 mg | | | | Intravenous, PRN, Starting Fri | | 15 7:59 | | | | | 06/18/15 at 0759, Anesthesia | | AM PST | | | | | Intra-op | | | | | | + +--------+ +-------+------+------+ +---+---+ | | | +---+---+ + +-------+ +--------+---+---+ | propofol (DIPRIVAN) injection | Given | 06/18/20 | 100 mg | | | | Intravenous, PRN, Starting Fri | | 15 8:00 | | | | | 06/18/15 at 0800, Anesthesia | | AM PST | | | | | Intra-op | | | | | | + +-------+ +--------+---+---+ +---+---+ | | | +---+---+ + + + + +-------+---+ | propofol (DIPRIVAN) injection | Rate/Dos | 06/18/20 | 100 | 56.3 | | | Intravenous, CONTINUOUS PRN, | e Change | 15 8:18 | mcg/kg/m | mL/hr | | | Starting 06/18/15 at 0801, | | AM PST | in | | | | Anesthesia Intra-op | | | | | | + + + + +-------+---+ + + + +-------+---+ | Rate/Dose Change | 06/18/20 | 140 | 78.9 | | | | 15 8:04 | mcg/kg/m | mL/hr | | | | AM PST | in | | | + + + +-------+---+ | New Bag | 06/18/20 | 155 | 87.3 | | | | 15 8:01 | mcg/kg/m | mL/hr | | | | AM PST | in | | | + + + +-------+---+ +---+---+ | | | +---+---+ documented in this encounter"
--- OUTSIDE RECORDS SUMMARY | ~2019-07-09 | XMS | Encounter Summary ---
Demographics + + + | Address | [address] | | | [place] [address] | + + + | Home Phone | | + + + | Preferred Language | Unknown | + + + | Marital Status | | + + + | Buddhist Affiliation | 1073 | + + + | Race | Unknown | + + + | Ethnic Group | Unknown | + + + Author + + + | Author | [facility] | | | and [facility] | + + + | Organization | [facility] | | | and [facility] | [...] [place] | | | | | [address] | | + + + + + | Dm Thompson | ECON | Unknown | | + + + + + Care Team Providers + +------+ + | Care Digital Marketing Associate Name | Role | Phone | + [...] | | | | | [address] | [place], [place] | | | | | [place], [place] | [address] | | | | | [address] | [phone] | | | | | [phone] | | | +--------+ + + + [...] + + | Periph | 06/18/15; 733; [id number] | 06/18/15733 by | 06/18/15905 by | [...]
--- OUTSIDE RECORDS SUMMARY | ~2019-07-09 | XMS | Encounter Summary ---
Demographics + + + | Address | [address] | | | [place] [address] | + + + | Home Phone | | + + + | Preferred Language | Unknown | + + + | Marital Status | | + + + | Sikh Affiliation | 1073 | + + + | Race | Unknown | + + + | Ethnic Group | Unknown | + + + Author + + + | Author | [facility] | | | and [place] | + + + | Organization | [facility] | | | and [place] [...] [place] | | | | | [phone] | | + + + + + | Dm Thompson | ECON | Unknown | | + + + + + Care Team Providers + +------+ + | Care Glue Jointer Feeder Name | Role | Phone | + +------+ + | Alex Hernandez MD | PCP | | + +------+ + Encounter Details +--------+---------+ + + + | Date | Type | Department | Care Team | Description | +--------+---------+ + + + | 02/09/ | Surgery | [facility] | Heladio Cheney MD | Cystoscopy, Cyber | | 2017 | | MED CTR OR INTRA OP | [address] | Laser Prostate | | | | [address] | [place], [place] | Vaporization | | | | [place], [place] | [address] | | | | | [address] | [phone] | | | | | [phone] | | | +--------+---------+ + + + [...] + + +---------+ + | Yes | 7 Glasses of wine | 9.0 | | | | 2 Cans of beer | | | + + +---------+ + [...] + + + | Blood Pressure | 160/80 | 02/10/2017 5:40 AM | | | | | PDT | | + + + + + | Pulse | 68 | 02/10/2017 5:40 AM | | | | | PDT | | + + + + + | Temperature | 35.9 C (96.7 F) | 02/10/2017 5:40 AM | | | | | PDT | | + + + + + | Respiratory Rate | 18 | 02/10/2017 5:40 AM | | | | | PDT | | + + + + + | Oxygen Saturation | 98% | 02/10/2017 5:40 AM | | | | | PDT | | + + + + + | Inhaled Oxygen | - | - | | | Concentration | | | | + + + + + | Weight | 93 kg (205 lb) | 02/09/2017 9:46 AM | | | | | PDT | | + + + + + | Height | 177.8 cm (5' 10") | 02/09/2017 9:46 AM | | | | | PDT | | + + + + + | Body Mass Index | 29.41 | 02/09/2017 9:46 AM | | | | | PDT | | + + + + + documented in this encounter Functional Status + + + + | Functional Status | Response | Date of Assessment | + + + + | Are you deaf or do you have serious | No | 02/10/2017 | | difficulty hearing? | | | + + + + | Are you blind or do you have serious | No | 02/10/2017 | | difficulty seeing, even when wearing | | | | glasses? | | | + + + + | Do you have serious difficulty walking or | No | 02/10/2017 | | climbing stairs? (5 years old or older) | | | + + + + | Do you have difficulty dressing or bathing? | No | 02/10/2017 | | (5 years old or older) | | | + + + + | Because of a physical, mental, or emotional | No | 02/10/2017 | | condition, do you have difficulty doing | | | | errands alone such as visiting a doctor's | | | | office or shopping? [15 years old or | | | | older)] | | | + + + + + + + + | Cognitive Status | Response | Date of Assessment | + + + + | Because of a physical, mental, or emotional | No | 02/10/2017 | | condition, do you have serious difficulty | | | | concentrating, remembering, or making | | | | decisions? (5 years old or older) | | | + + + + documented as of this encounter Discharge Summaries Heladio Cheney MD - 02/10/2017 6:51 AM PDT DISCHARGE SUMMARY Pt. Name/Age/: Dada Thompson 76 y.o. 1940 Date of Admission: 02/09/2017 Date of Discharge: 02/10/2017 Admitting Physician: Heldaio Cheney MD PCP: Alex Hernandez Discharging Physician: Heladio Cheney Consultants: Primary Discharge Dx: Obstructing prostate Secondary Discharge Dx: Suspected sleep apnea Procedures: Transurethral laser vaporization of prostate Hospital Course, including Complications: The above procedure was performed on admission. Hematuria at the conclusion of the procedure was treated with an indwelling irrigating cath eter the first night. Urine color improved. Voiding trial was instituted the morning after surgery. He had oxygen desaturation to less than 88% during sleep. He will stop his tamsu losin and dutasteride. He will wait one month to resume his aspirin. Medications Reconciled upon Discharge are: Discharge Medications Unchanged Medications Details allopurinol 300 mg tablet Take 300 mg by mouth Daily. aka: ZYLOPRIM atorvaSTATin 40 mg tablet Take 40 mg by mouth nightly. aka: LIPITOR citalopram 20 mg tablet TK 1 T PO QD aka: celeXA cyclobenzaprine 10 mg tablet Take 10 mg by mouth 3 times daily as needed for Muscle spasms. aka: FLEXERIL donepezil 5 mg tablet TK 1 T PO QD aka: ARICEPT fluticasone 50 mcg/nasal spray 1 spray by Nasal route Daily. aka: FLONASE hydroCHLOROthiazide 50 mg tablet Take 25 mg by mouth Daily. levothyroxine 175 MCG tablet Take 175 mcg by mouth every morning (before breakfast). aka: SYNTHROID, LEVOTHROID liothyronine 5 mcg tablet TK 1 T PO QD aka: CYTOMEL LORazepam 1 mg tablet Take 1 mg by mouth every 6 hours as needed for Anxiety. aka: ATIVAN losartan 50 mg tablet TK 2 TS PO QD aka: COZAAR omeprazole 20 mg capsule Take 20 mg by mouth every morning (before breakfast). aka: priLOSEC OSTEO BI-FLEX ADV DOUBLE ST PO Take by mouth. polyethylene glycol packet Take 17 g by mouth Daily. aka: MIRALAX potassium chloride 10 mEq CR capsule TK 1 C PO BID aka: MICRO-K potassium citrate 10 mEq SR tablet Take 20 mEq by mouth 3 times daily (with meals). aka: UROCIT-K pseudoePHEDrine 60 MG tablet Take 60 mg by mouth every 4 hours as needed for Congestion. aka: SUDAFED Discontinued Medications aspirin 81 mg EC tablet dutasteride 0.5 mg capsule aka: AVODART tamsulosin 0.4 mg Caps aka: FLOMAX There is no immunization history on file for this patient. Vital Signs: Temp: 36 C (96.8 F) BP: 151/75 Pulse: 68 Resp: 18 SpO2: 96 % Min/Max Temp past 24 hours:Temp Av.1 C (96.9 F) Min: 35.7 C (96.3 F) Max: 3 6.4 C (97.5 F) Intake/Output Summary (Last 24 hours) at 02/10/17 0652 Last data filed at 02/09/17 2308 Gross per 24 hour Intake 2440 ml Output 0 ml Net 2440 ml Last Wt. Before discharge: Weight: 93 kg (205 lb) Pending study results on DC: none Follow-Up Plans: Follow-up with: Dr. Cheney, Dr. Hernandez Diet: Extra hydration, low sodium, low oxalate to prevent kidney stones Activity: Limited the first week Electronically signed by: Heladio Cheney, 02/10/2017 6:52 [facility] documented in this enc ounter Discharge Instructions Instructions Heladio Cheney MD - 02/10/2017Tried to drink 2-1/2 quarts of liquid daily as prevention for kidney stones. No sports or strenuous physical activity for a week. Continu e limited activity if there is blood in the urine. documented in this encounter Medications at Time of Discharge + + + +---------+ + + | Medication | Sig | Dispensed | Refills | Start | End Date | | | | | | Date | | + + + +---------+ + + | allopurinol | Take 300 mg by mouth | | 0 | | | | (ZYLOPRIM) 300 mg | Daily. | | | | | | tablet | | | | | | + + + +---------+ + + | atorvaSTATin | Take 40 mg by mouth | | 0 | | | | (LIPITOR) 40 mg | nightly. | | | | | | tablet | | | | | | + + + +---------+ + + | citalopram | TK 1 T PO QD | | 1 | 12/07/19 | | | (CELEXA) 20 mg | | | | 17 | | | tablet | | | | | | + + + +---------+ + + | cyclobenzaprine | Take 10 mg by mouth | | 0 | | | | (FLEXERIL) 10 mg | 3 times daily as | | | | | | tablet | needed for Muscle | | | | | | | spasms. | | | | | + + + +---------+ + + | donepezil | TK 1 T PO QD | | 0 | 01/27/20 | | | (ARICEPT) 5 mg | | | | 17 | | | tablet | | | | | | + + + +---------+ + + | fluticasone | 1 spray by [...] + + +---------+ + + | levothyroxine | Take 175 mcg by | | 0 | | | | (SYNTHROID, | mouth every morning | | | | | | LEVOTHROID) 175 MCG | (before breakfast). | | | | | | tablet | | | | | | + + + +---------+ + + | liothyronine | TK 1 T PO QD | | 0 | 12/26/19 | | | (CYTOMEL) 5 mcg | | | | 17 | | | tablet | | | | | | + + + +---------+ + + | LORazepam (ATIVAN) | Take 1 mg by mouth | | 0 | | | | 1 mg tablet | every 6 hours as | | | | | | | needed for Anxiety. | | | | | + + + +---------+ + + | losartan (COZAAR) | TK 2 TS PO QD | | 3 | 01/18/20 | | | 50 mg tablet | | | | 17 | | + + + +---------+ + + | Misc Natural | Take by mouth. | | 0 | | | | Products (OSTEO | | | | | | | BI-FLEX ADV DOUBLE | | | | | | | ST PO) | | | | | | + + + +---------+ + + | omeprazole | Take 20 mg by mouth | | 0 | | | | (PRILOSEC) 20 mg | every morning | | | | | | capsule | (before breakfast). | | | | | + + + +---------+ + + | polyethylene | Take 17 g by mouth | | 0 | | | | glycol (MIRALAX) | Daily. | | | | | | packet | | | | | | + + + +---------+ + + | potassium chloride | TK 1 C PO BID | | 3 | /06/04 | | | (MICRO-K) 10 mEq CR | | | | 17 | | | capsule | | | | | | + + + +---------+ + + | potassium citrate | Take 20 mEq by mouth | | 0 | | | | (UROCIT-K) 10 mEq SR | 3 times daily (with | | | | | | tablet | meals). | | | | | + + + +---------+ + + | pseudoePHEDrine | Take 60 mg by mouth | | 0 | | | | (SUDAFED) 60 MG | every 4 hours as | | | | | | tablet | needed for | | | | | | | Congestion. | | | | | + + + +---------+ + + documented as of this encounter Progress Notes Chandni Camilo RRT - 02/10/2017 4:03 AM PDTPatient required 2 liters O2 to maintain sats >88%. documented in this encounter Plan of Treatment Not on filedocumented as of this encounter Procedures + +--------+ + + + | Procedure Name | Priori | Date/Time | Associated Diagnosis | Comments | | | ty | | | | + +--------+ + + + | ECG - EXTERNAL SCAN | | 02/15/2017 | | Results for this | | | | 12:00 AM | | procedure are in the | | | | PDT | | results section. | + +--------+ + + + | CYSTOSCOPY PROSTATE | | 02/09/2017 | Benign prostatic | | | VAPORIZATION | | 2:18 PM | hyperplasia with | | | TRANSURETHERAL | | PDT | lower urinary tract | | | | | | symptoms, | | | | | | unspecified | | | | | | morphology | | + +--------+ + + + | LABS - EXTERNAL SCAN | | 11/16/2016 | | Results for this | | | | 12:00 AM | | procedure are in the | | | | PDT | | results section. | + +--------+ + + + documented in this encounter Results ECG - EXTERNAL SCAN (02/15/2017 12:00 AM PDT) + + + | Narrative | Performed At | + + + | Ordered by an | | | unspecified provider. | | + + + LABS - EXTERNAL SCAN (11/16/2016 12:00 AM PDT) + + + | Narrative | Performed At | + + + | Ordered by an | | | unspecified provider. | | + + + documented in this encounter Visit Diagnoses + + | Diagnosis | + + | Benign prostatic hyperplasia with lower urinary tract symptoms, unspecified morphology | + + documented in this encounter Administered Medications + +--------+ +--------+------+------+ | Medication Order | MAR | Action | Dose | Rate | Site | | | Action | Date | | | | + +--------+ +--------+------+------+ | acetaminophen (TYLENOL) tablet | Given | 02/10/20 | 975 mg | | | | 975 mg 975 mg (rounded from | | 17 10:33 | | | | | 1,000 mg), Oral, ONCE, Fri | | AM PDT | | | | | 02/09/17 at 1015, For 1 dose, | | | | | | | Pre-op | | | | | | + +--------+ +--------+------+------+ +---+---+ | | | +---+---+ + +-------+ +--------+---+---+ | ciprofloxacin (CIPRO) tablet | Given | 02/10/20 | 500 mg | | | | 500 mg 500 mg, Oral, 60 MIN | | 17 10:33 | | | | | PRE-OP, Starting 02/09/17 at | | AM PDT | | | | | 0959, For 1 dose, Adjust | | | | | | | administration schedule to match | | | | | | | OR schedule., Pre-op, | | | | | | | Indications: Surgical Prophylaxis | | | | | | + +-------+ +--------+---+---+ +---+---+ | | | +---+---+ + +-------+ +--------+---+---+ | docusate calcium (SURFAK) | Given | 02/11/20 | 240 mg | | | | capsule 240 mg 240 mg, Oral, 2 | | 17 8:11 | | | | | TIMES DAILY, First dose on Sun | | AM PDT | | | | | 02/09/17 at 2100 | | | | | | + +-------+ +--------+---+---+ +-------+ +--------+---+---+ | Given | 02/10/20 | 240 mg | | | | | 17 9:21 | | | | | | PM PDT | | | | +-------+ +--------+---+---+ +---+---+ | | | +---+---+ + +-------+ +-------+---+---+ | hydroCHLOROthiazide tablet 25 | Given | 02/11/20 | 25 mg | | | | mg 25 mg, Oral, DAILY, First | | 17 8:11 | | | | | dose on 02/10/17 at 0900 | | AM PDT | | | | + +-------+ +-------+---+---+ +---+---+ | | | +---+---+ + +-------+ + +---+---+ | HYDROcodone-acetaminophen | Given | 02/11/20 | 1 tablet | | | | (NORCO) 5-325 mg per tablet 1-2 | | 17 2:40 | | | | | tablet 1-2 tablet, Oral, EVERY 4 | | AM PDT | | | | | HOURS PRN, Pain, Starting Fri | | | | | | | 02/09/17 at 1726, Post-op/Phase II | | | | | | + +-------+ + +---+---+ +---+---+ | | | +---+---+ + +---------+ +---+---+---+ | lactated ringers (LR) infusion | New Bag | 02/10/20 | | | | | at 100 mL/hr, Intravenous, | | 17 2:34 | | | | | CONTINUOUS, Starting 02/09/17 | | PM PDT | | | | | at 1015, Pre-op | | | | | | + +---------+ +---+---+---+ +---------+ +--------+-------+---+ | New Bag | 02/10/20 | 1,000 | 100 | | | | 17 10:32 | mLs | mL/hr | | | | AM PDT | | | | +---------+ +--------+-------+---+ +---+---+ | | | +---+---+ + +-------+ +---------+---+---+ | levothyroxine (SYNTHROID, | Given | 02/11/20 | 150 mcg | | | | LEVOTHROID) tablet 150 mcg 150 | | 17 7:12 | | | | | mcg, Oral, DAILY BEFORE | | AM PDT | | | | | BREAKFAST, First dose on Sat | | | | | | | 02/10/17 at 0730, Give before | | | | | | | breakfast., | | | | | | + +-------+ +---------+---+---+ +---+---+ | | | +---+---+ + +-------+ +-------+---+---+ | liothyronine (CYTOMEL) tablet 5 | Given | 02/11/20 | 5 mcg | | | | mcg 5 mcg, Oral, DAILY, First | | 17 8:19 | | | | | dose on 02/10/17 at 0900 | | AM PDT | | | | + +-------+ +-------+---+---+ +---+---+ | | | +---+---+ + +-------+ +--------+---+---+ | losartan (COZAAR) tablet 100 mg | Given | 02/11/20 | 100 mg | | | | 100 mg, Oral, DAILY, First dose | | 17 8:11 | | | | | on 02/10/17 at 0900 | | AM PDT | | | | + +-------+ +--------+---+---+ +---+---+ | | | +---+---+ + +-------+ +--------+---+---+ | potassium chloride (KLOR-CON) | Given | 02/11/20 | 20 mEq | | | | packet 20 mEq 20 mEq, Oral, | | 8:11 | | | | | TIMES DAILY, First dose on Sat | | AM PDT | | | | | 02/10/17 at 0900, For partial | | | | | | | doses, reconstitute as directed, | | | | | | | then administer the dose | | | | | | | ordered., | | | | | | + +-------+ +--------+---+---+ +---+---+ | | | +---+---+ documented in this encounter
--- OUTSIDE RECORDS SUMMARY | ~2019-07-09 | XMS | Clinical Summary ---
Demographics + + + | Address | [address] | | | [place] [address] | + + + | Home Phone | | + + + | Preferred Language | Unknown | + + + | Marital Status | | + + + | Caodaism Affiliation | MET | + + + | Race | White | + + + | Ethnic Group | Not or | + + + Author + + + | Author | [facility] | + + + | Organization | [facility] | + + + | Address | Unknown | + + + | Phone | Unavailable | + + + Support + + + + + | Name | Relationship | Address | Phone | + + + + + | Mary Jane Thompson | ECON | [address] | | | | | [place] | | | | | [address] | | + + + + + | Hansel Thompson | ECON | Unknown | | + + + + + | Brittany Thompson | ECON | Unknown | | + + + + + Care Team Providers + +------+ + | Care Hand Heel Seat Fitter Name | Role | Phone | + +------+ + | Alex Hernandez MD | PCP | | + +------+ + Source Comments ARLET is fully live on both [facility] and [facility] Allergies No Known Allergies Medications + + + +---------+------+------+-------+ | Medication | Sig | Dispensed | Refills | Star | End | Statu | | | | | | t | Date | s | | | | | | Date | | | + + + +---------+------+------+-------+ | allopurinol 300 mg | Take 150 mg by mouth | | 0 | | | Activ | | Oral tablet | once daily. | | | | | e | + + + +---------+------+------+-------+ | atorvastatin 40 mg | Take 40 mg by mouth | | 0 | | | Activ | | Oral tablet | once daily. | | | | | e | + + + +---------+------+------+-------+ | tamsulosin 0.4 mg | Take 0.4 mg by mouth | | 0 | | | Activ | | Oral | once daily. | | | | | e | | capsule,extended | | | | | | | | release 24hr | | | | | | | + + + +---------+------+------+-------+ | fluticasone 50 | Instill 2 sprays | | 0 | | | Activ | | mcg/actuation Nasal | into each nostril as | | | | | e | | [place]onson, Suspension | needed. | | | | | | + + + +---------+------+------+-------+ | aspirin chewable | Take 81 mg by mouth | | 0 | | | Activ | | 81 mg Oral tablet, | once daily. | | | | | e | | chewable | | | | | | | + + + +---------+------+------+-------+ | LORAZEPAM 1 mg | as needed. | | 0 | 10/3 | | Activ | | oral tablet | | | | 1/20 | | e | | | | | | 13 | | | + + + +---------+------+------+-------+ | | as needed. | | 0 | 09/2 | | Activ | | HYDROCODONE-ACETAMIN | | | | 6/20 | | e | | OPHEN 5-325 mg oral | | | | 13 | | | | tablet | | | | | | | + + + +---------+------+------+-------+ | CYCLOBENZAPRINE 10 | three times daily as | | 0 | 11/0 | | Activ | | mg oral tablet | needed. | | | 20 | | e | | | | | | 13 | | | + + + +---------+------+------+-------+ | AMITRIPTYLINE 25 | as needed. | | 0 | 10/1 | | Activ | | mg oral tablet | | | | 11/02 | | e | | | | | | 13 | | | + + + +---------+------+------+-------+ | | Take 25 mg by mouth | | 0 | | | Activ | | hydrochlorothiazide | once daily. | | | | | e | | 25 mg oral tablet | | | | | | | + + + +---------+------+------+-------+ | potassium citrate | Take 10 mEq by mouth | | 0 | | | Activ | | SR 10 mEq oral | once daily. 4-6 | | | | | e | | tablet extended | tabs | | | | | | | release | | | | | | | + + + +---------+------+------+-------+ | levothyroxine 150 | Take 1 tablet by | 30 | 3 | 11/1 | | Activ | | mcg oral tablet | mouth once daily. | tablet | | 4/20 | | e | | | | | | 13 | | | + + + +---------+------+------+-------+ | oxyCODONE, | Take 1-3 tablets by | 90 | 0 | 11/1 | | Activ | | immediate release, 5 | mouth every three | tablet | | 4/20 | | e | | mg oral tablet | hours as needed for | | | 13 | | | | | severe pain. | | | | | | + + + +---------+------+------+-------+ | Docusate Sodium | Take 1 tablet by | 60 | 0 | 11/1 | | Activ | | 100 mg oral tablet | mouth two times | tablet | | 4/20 | | e | | | daily. 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 | + + + | Nephrolithiasis | 04/24/2013 | + + + Family History + + +------+ + | Medical History | Relation | Name | Comments | + + +------+ + | Hypertension | Father | | | + + +------+ + | Stroke | Father | | | + + +------+ + | Hypertension | Mother | | | + + +------+ + | Thyroid | Mother | | | + + +------+ + | Cancer | Neg Hx | | | + + +------+ + | Heart Disease | Neg Hx | | | + + +------+ + + +------+--------+ + | Relation | Name | Status | Comments | + +------+--------+ + | Father | | | | + +------+--------+ + | Mother | | | | + +------+--------+ + Social History + +-------+ +--------+------+ | Tobacco Use | Types | Packs/Day | Years | Date | | | | | Used | | + +-------+ +--------+------+ | Never Smoker | | | | | + +-------+ +--------+------+ + +---+---+---+ | Smokeless Tobacco: | | | | | Never Used | | | | + +---+---+---+ + + | Tobacco Cessation: Counseling Given: No | + + + + +---------+ + | Alcohol Use [...] recent travel history available. | + + Last Filed Vital Signs + + + [...] | | + + + + + Plan of Treatment + + + + + | Health Maintenance | Due Date | Last Done | Comments | + + + + + | Pneumococcal | | | | | vaccination (1 of 2 | 5 | | | | - PCV13) | | | | + + + + + | Influenza (Flu) | | 04/13/2018, 04/24/2015, | | | vaccination (#1) | 9 | 04/20/2014, Additional history | | | | | exists | | + + + + + Results Not on filefrom Last 3 Months Insurance + +--------+ +--------+ + +--------+ | Payer | Benefi | Subscriber | Effect | Phone | Address | Type | | | t Plan | ID | sam | | | | | | / | | Dates | | | | | | Group | | | | | | + +--------+ +--------+ + +--------+ | MEDICARE | MEDICA | xxxxxxxxxx | | [phone] | [address] | [address] | | | RE [address] & | | [phone] | | | [address] | | esent | | [place] | | | | | | | | [address] | | + +--------+ +--------+ + +--------+ | COMMERCIAL | INDIVI | xxxxxxxxx | 09/14/19 | | | Indemn | | INDIVIDUAL | DUAL | | 13-Pre | | | ity | | | COMMER | | sent | | | | | | CIAL | | | | | | + +--------+ +--------+ + +--------+ + +--------+ +--------+ + + | Guarantor Name | Accoun | Relation to | Date | Phone | Billing Address | | | t Type | Patient | of | | | | | | | | | | + +--------+ +--------+ + + | Dada Thompson | Person | Self | [birth year] | [address] | | | al/Fam | | 1940 | [phone] | [place] [address] | | | [place] | | | [address] (Home) | | + +--------+ +--------+ + +
--- OUTSIDE RECORDS SUMMARY | ~2019-07-09 | XMS | Clinical Summary ---
Demographics + + + | Address | [address] | | | [place] [address] | + + + | Home Phone | | + + + | Preferred Language | Unknown | + + + | Marital Status | | + + + | Orthodox Affiliation | 1073 | + + + | Race | Unknown | + + + | Ethnic Group | Unknown | + + + Author + + + | Author | [facility] | | | and [place] | + + + | Organization | [facility] | | | and [place] [...] [place] | | | | | [address] | | + + + + + | Dm Thompson | ECON | Unknown | | + + + + + Care Team Providers + +------+ + | Care Electric Freight Car Operator Name | Role | Phone | + +------+ + | Alex Hernandez MD | PCP | | + +------+ + Allergies + + + + + + | Active Allergy | Reactions | Severity | Noted | Comments | | | | | Date | | + + + + + + | Morphine | Nausea Only | Medium | 06/18/20 | Nightmares | | | | | 15 | | + + + + + + Medications + + + +---------+------+------+-------+ | Medication | Sig | Dispensed | Refills | Star | End | Statu | | | | | | t | Date | s | | | | | | Date | | | + + + +---------+------+------+-------+ | allopurinol | Take 300 mg by mouth | | 0 | | | Activ | | (ZYLOPRIM) 300 mg | Daily. | | | | | e | | tablet | | | | | | | + + + +---------+------+------+-------+ | atorvaSTATin | Take 40 mg by mouth | | 0 | | | Activ | | (LIPITOR) 40 mg | nightly. | | | | | e | | tablet | | | | | | | + + + +---------+------+------+-------+ | cyclobenzaprine | Take 10 mg by mouth | | 0 | | | Activ | | (FLEXERIL) 10 mg | 3 times daily as | | | | | e | | tablet | needed for Muscle | | | | | | | | spasms. | | | | | | + + + +---------+------+------+-------+ | fluticasone | 1 spray by Nasal | | 0 | | | Activ | | (FLONASE) 50 | route Daily. | | | | | e | | mcg/nasal spray | | | | | | | + + + +---------+------+------+-------+ | | Take 25 mg by mouth | | 0 | | | Activ | | hydrochlorothiazide | Daily. | | | | | e | | 50 mg tablet | | | | | | | + + + +---------+------+------+-------+ | LORazepam (ATIVAN) | Take 1 mg by mouth | | 0 | | | Activ | | 1 mg tablet | every 6 hours as | | | | | e | | | needed for Anxiety. | | | | | | + + + +---------+------+------+-------+ | omeprazole | Take 20 mg by mouth | | 0 | | | Activ | | (PRILOSEC) 20 mg | every morning | | | | | e | | capsule | (before breakfast). | | | | | | + + + +---------+------+------+-------+ | Misc Natural | Take by mouth. | | 0 | | | Activ | | Products (OSTEO | | | | | | e | | BI-FLEX ADV DOUBLE | | | | | | | | ST PO) | | | | | | | + + + +---------+------+------+-------+ | potassium citrate | Take 20 mEq by mouth | | 0 | | | Activ | | (UROCIT-K) 10 mEq SR | 3 times daily (with | | | | | e | | tablet | meals). | | | | | | + + + +---------+------+------+-------+ | pseudoePHEDrine | Take 60 mg by mouth | | 0 | | | Activ | | (SUDAFED) 60 MG | every 4 hours as | | | | | e | | tablet | needed for | | | | | | | | Congestion. | | | | | | + + + +---------+------+------+-------+ | levothyroxine | Take 175 mcg by | | 0 | | | Activ | | (SYNTHROID, | mouth every morning | | | | | e | | LEVOTHROID) 175 MCG | (before breakfast). | | | | | | | tablet | | | | | | | + + + +---------+------+------+-------+ | potassium chloride | TK 1 C PO BID | | 3 | 05/1 | | Activ | | (MICRO-K) 10 mEq CR | | | | 1/20 | | e | | capsule | | | | 17 | | | + + + +---------+------+------+-------+ | losartan (COZAAR) | TK 2 TS PO QD | | 3 | 07/0 | | Activ | | 50 mg tablet | | | | 5/20 | | e | | | | | | 17 | | | + + + +---------+------+------+-------+ | liothyronine | TK 1 T PO QD | | 0 | 06/1 | | Activ | | (CYTOMEL) 5 mcg | | | | 2/20 | | e | | tablet | | | | 17 | | | + + + +---------+------+------+-------+ | donepezil | TK 1 T PO QD | | 0 | 07/1 | | Activ | | (ARICEPT) 5 mg | | | | 4/20 | | e | | tablet | | | | 17 | | | + + + +---------+------+------+-------+ | citalopram | TK 1 T PO QD | | 1 | 05/2 | | Activ | | (CELEXA) 20 mg | | | | 4/20 | | e | | tablet | | | | 17 | | | + + + +---------+------+------+-------+ | polyethylene | Take 17 g by mouth | | 0 | | | Activ | | glycol (MIRALAX) | Daily. | | | | | e | | packet | | | | | | | + + + +---------+------+------+-------+ Active Problems Not on file Family History + + +------+ + | [...] | + + + + + | Vaccine: | | | | | Dtap/Tdap/Td (1 - | 1 | | | | Tdap) | | | | + + + + + | Vaccine: Zoster (1 | | | | | of 2) | 0 | | | + + + + + | Vaccine: | | | | | Pneumococcal 65+ (1 | 5 | | | | of 2 - PCV13) | | | | + + + + + | Vaccine: Influenza | | | | | (#1) | 9 | | | + + + + + Results Not on filefrom Last 3 Months Insurance + +--------+ +--------+ +---------+--------+ | Payer | Benefi | Subscriber | Effect | Phone | Address | Type | | | t Plan | ID | sam | | | | | | / | | Dates | | | | | | Group | | | | | | + +--------+ +--------+ +---------+--------+ | MEDICARE | MEDICA | [id number] | | [phone] | | Medica | | | RE | | 005-Pr | 5 | | re | | | PART A | | esent | | | | | | AND B | | | | | | + +--------+ +--------+ +---------+--------+ | [employer] | BANKER | [id number] | | [phone] | | Indemn | | | S LIFE | | 015-Pr | 4 | | ity | | | INS | | esent | | | | + +--------+ +--------+ +---------+--------+ + +--------+ +--------+ + + | Guarantor Name | Accoun | Relation to | Date | Phone | Billing Address | | | t Type | Patient | of | | | | | | | | | | + +--------+ +--------+ + + | Dada Thompson | Person | Self | [birth year] | [address] | | | al/Fam | | 1940 | [phone] | [place] [address] | | | chuck | | | 6 (Home) | | + +--------+ +--------+ + + Advance Directives + + + + + | Type | Date Recorded | Patient | Explanation | | | | Specialty Molder | | + + + + + | Power of | | | | | Physical Integration Practitioner | | | | + + + + + | Advance | 02/09/2017 9:29 | | | | Directive | AM | | | + + + + + + + + + + | Code Status | Date | Date | Comments | | | Activated | Inactivated | | + + + + + | Full Code | 02/09/2017 | 02/10/2017 | | | | 5:26 PM | 12:02 PM | | + + + + +
--- OUTSIDE RECORDS SUMMARY | ~2019-07-09 | XMS | Encounter Summary ---
Demographics + + + | Address | [address] | | | [place] [address] | + + + | Home Phone | | + + + | Preferred Language | Unknown | + + + | Marital Status | | + + + | Scientology Affiliation | 1073 | + + + | Race | Unknown | + + + | Ethnic Group | Unknown | + + + Author + + + | Author | [facility] | | | and [place] | + + + | Organization | [facility] | | | and [place] [...] [place] | | | | | [address] | | + + + + + | Dm Thompson | ECON | Unknown | | + + + + + Care Team Providers + +------+ + | Care Hall Tender Name | Role | Phone | + +------+ + | Alex Hernandez MD | PCP | | + +------+ + Encounter Details +--------+---------+ + + + | Date | Type | Department | Care Team | Description | +--------+---------+ + + + | 06/18/ | Surgery | [facility] | Helen Pelayo MD | EGD / COLONOSCOPY | | 2015 | | [facility] | [address] | | | | | [address] | [place], [place] | | | | | [place], [place] | [address] | | | | | [address] | [phone] | | | | | [phone] | | | +--------+---------+ + + + [...] time. An adult must drive you home. [id number] [employer]. [address] [place] [address]. All righ ts reserved. This information is [...] tear in the colon Risks of anesthesia [id number] [employer]. [address] [place] [address], [place] [address]. All righ ts reserved. This information is [...] MEDICAL | PROVATION | | RECORD NUMBER: [id number] REFERRING PROVIDER: Herbie Hernandez | | | [...] Hernandez MD Electronically signed | | | Helen Pelayo MD 06/18/2015 8:25 [facility] | | + + + + +---------+ + + | Performing | Address | City/State/Zipcode | Phone Number | | Organization | | | | + +---------+ + + | [facility] [employer] | | | | + +---------+ + + EGD (06/18/2015 8:06 AM PST) + + + | Narrative | Performed At | + + + | Helen Pelayo MD 06/18/2015 8:06 PROCEDURE NOTE | [facility] | | PATIENT: Dada Thompson DATE OF : 1940 MEDICAL | PROVATION | | RECORD NUMBER: [id number] DATE OF PROCEDURE: 06/18/15 | | | [...] organisms are identified | | | immunostain. [facility] FINAL PATHOLOGIC DIAGNOSIS: A. Stomach, | | | biopsy: - Mild chronic superficial gastritis. - Negative for | | | atrophy, intestinal metaplasia or dysplasia. - Negative for | | | Helicobacter pylori. B. Colon, rectosigmoid at 25 cm, polypectomy: | | | - Tubular adenoma. [facility] GROSS DESCRIPTION: A. | | | The specimen, received in formalin, labeled and designated | | | "Jay, gastric biopsy," consists of four 0.3 cm fragments. All | | | in (A1). B. The specimen, received in formalin, labeled and | | | designated "Jay, rectosigmoid polyp at 25 cm," consists of two | | | 0.4 and 0.8 cm, polypoid tissue fragments. The smaller polypoid | | | fragment is inked blue and the larger polypoid fragment is inked | | | black. These fragments are sectioned and submitted all in (B1). | | | ja:[facility]:mrs ADDITIONAL NOTES: Immunohistochemical studies were | | | performed on this case with the appropriate negative and positive | | | controls that react as expected. This test was developed and its | | | performance characteristics determined by [facility]. It | | | has not been cleared or approved by the U.S. Food and Drug | | | Administration. The FDA has determined that such clearance or | | | approval is not necessary. This test is used for clinical purposes. | | | It should not be regarded as investigational or for research. | | | [facility] is certified under the Clinical Laboratory | | | Improvement Amendments of 1988 (CLIA) as qualified to perform high | | | complexity clinical laboratory testing. PERFORMING LABORATORY: | | | Tissue processing and slide preparation were performed by [facility] | | | [employer], [address] [place] [address] | | | (Pack Train Driver: Renny Julien M.D.; CLIA#: [id number]). | | | Professional interpretation was performed by [facility], | | | [address] [place] [address] (Pack Train Driver: | | | Renny Julien M.D.; CLIA#: [id number]). Diagnostician: Deo Hodge | | | Luis [...] + | Diagnosis | + + | Abdominal discomfort, epigastric Abdominal pain, epigastric | + + | Benign adenomatous polyp of large intestine | + + | Acute constipation Unspecified constipation | + + documented in this encounter Administered Medications + +---------+ [...]
--- OUTSIDE RECORDS SUMMARY | ~2019-07-09 | XMS | Encounter Summary ---
Demographics + + + | Address | [address] | | | [place] [address] | + + + | Home Phone | | + + + | Preferred Language | Unknown | + + + | Marital Status | | + + + | Synagogue Affiliation | MET | + + + | Race | White | + + + | Ethnic Group | Not or | + + + Author + + + | Author | [facility] | + + + | Organization | [facility] | + + + | Address | Unknown | + + + | Phone | Unavailable | + + + Support + + + + + | Name | Relationship | Address | Phone | + + + + + | Mary Jane Thompson | ECON | [address] | | | | | [place] | | | | | [address] | | + + + + + | Hansel Thompson | ECON | Unknown | | + + + + + | Brittany Thompson | ECON | Unknown | | + + + + + Care Team Providers + +------+ + | Care High School Social Studies Tutor Name | Role | Phone | + +------+ + | Alex Hernandez MD | PCP | | + +------+ + Encounter Details +--------+ + + + + | Date | Type | Department | Care Team | Description | +--------+ + + + + | 04/23/ | Documentati | Otolaryngology | Maritza Phelan, | | | 2012 | on | Thyroid Services at | MD [address] | | | | | [address] | [facility] | | | | | [address] | [place], [place] | | | | | Mailcode: PV01 | [address] | | | | | [facility] | [phone] | | | | | [place], [place] | | | | | | [address] | | | | | | [phone] | | | +--------+ + + + [...]
--- OUTSIDE RECORDS SUMMARY | ~2019-07-09 | XMS | Encounter Summary ---
Demographics + + + | Address | [address] | | | [place] [address] | + + + | Home Phone | | + + + | Preferred Language | Unknown | + + + | Marital Status | | + + + | Taoism Affiliation | MET | + + + | Race | White | + + + | Ethnic Group | Not or | + + + Author + + + | Author | [facility] | + + + | Organization | [facility] | + + + | Address | Unknown | + + + | Phone | Unavailable | + + + Support + + + + + | Name | Relationship | Address | Phone | + + + + + | Mary Jane Thompson | ECON | [address] | | | | | [place] | | | | | [address] | | + + + + + | Hansel Jay | ECON | Unknown | | + + + + + | Brittany Thompson | ECON | Unknown | | + + + + + Care Team Providers + +------+ + | Care Form Tamping Machine Operator Name | Role | Phone | + +------+ + | Alex Hernandez MD | PCP | | + +------+ + Reason for Visit + + + | Reason | Comments | + + + | New patient | Thyroid nodule | | consultation | | + + + Consultation (Routine) +--------+--------+ + + + + | Status | Reason | Specialty | Diagnoses / | Referred By | Referred To | | | | | Procedures | Contact | Contact | +--------+--------+ + + + + | Closed | | Otolaryngolog | | [place], | [place], | | | | y | | MD Yessica | Maritza Ramirez MD | | | | | | [place] | [address] [facility] | | | | | | [address] | [facility] | | | | | | [address] | [address] [place], | | | | | | [place], [place] | [place] | | | | | | [address] | [address] | | | | | | Phone: | Phone: | | | | | | [phone] | [phone] | | | | | | Fax: | Fax: | | | | | | [phone] | [phone] | +--------+--------+ + + + + Encounter Details +--------+---------+ + + + | Date | Type | Department | Care Team | Description | +--------+---------+ + + + | 04/24/ | Office | Otolaryngology | Maritza Phelan, | Thyroid nodule | | 2012 | Visit | Thyroid Services at | MD [address] | (Primary Dx); | | | | [facility] [address] | Neoplasm of | | | | [address] | [place], [place] | uncertain behavior | | | | Mailcode: PV01 | [address] | of thyroid gland; | | | | [facility] | [phone] | Nephrolithiasis | | | | [place], [place] | | | | | | [address] | | | | | | [phone] | | | +--------+---------+ + + + [...] + + + | Blood Pressure | 140/85 | 04/24/2013 1:01 PM | | | | | PDT | | + + + + + | Pulse | 78 | 04/24/2013 1:01 PM | | | | | PDT | | + + + + + | Temperature | - | - | | + + + + + | Respiratory Rate | - | - | | + + + + + | Oxygen Saturation | - | - | | + + + + + | Inhaled Oxygen | - | - | | | Concentration | | | | + + + + + | Weight | 89.8 kg (198 lb) | 04/24/2013 1:01 PM | | | | | PDT | | + + + + + | Height | - | - | | + + + + + | Body Mass Index | - | - | | + + + + + documented in this encounter Progress Maritza Gautam MD - 04/24/2013 5:53 PM PDTFormatting of this note might be different fr om the original. Attending Note I personally interviewed the patient, duplicated the pertinent parts of the physical examin ation and personally formulated the plan with the resident. I have reviewed, entered my find ings, and agree with the documentation in the note. Additional comments: I agree with the plaResults for DIAMANTE THOMPSON ( ) as of 04/24/2013 17:53 Ref. Range 04/24/2013 SODIUM, PLASMA (LAB) Latest Range: 136-145 mmol/L 138 POTASSIUM, PLASMA (LAB) Latest Range: 3.4-5.0 mmol/L 3.1 (L) CHLORIDE, PLASMA (LAB) Latest Range: 97-108 mmol/L 99 TOTAL CO2, PLASMA (LAB) Latest Range: 21-32 mmol/L 32 BUN, PLASMA (LAB) Latest Range: 6-20 mg/dL 21 (H) CREATININE PLASMA (LAB) Latest Range: 0.70-1.30 mg/dL 1.15 EGFR - BRUNEIAN Latest Range: >60 mL/min >60 EGFR NON -BRUNEIAN Latest Range: >60 mL/min >60 GLUCOSE, PLASMA Latest Range: 60-99 mg/dL 209 (H) CALCIUM, PLASMA Latest Range: 8.6-10.2 mg/dL 9.9 CALC ICA, WHOLE BLD Latest Range: 1.14-1.28 mmol/L 1.28 HANSEL ICA, WHOLE BLD Latest Range: 1.14-1.32 mmol/L 1.27 PH, WHOLE BLOOD No range found 7.43 ns and recommendations outlined in the note, which I also discussed with the patient. HE gallardo s bilateral thyroid nodules, the left one 40% risk of malignancy with Afirma testing. I rec ommended left hemithyroidectomy for definitive diagnosis. I discussed with the patient the a lternative to surgery by following the nodule(s) with serial ultrasound and fine needle aspi ration biopsy. I discussed with him the limitations of thyroid FNA as well. We also discuss ed the risk of re-operation and the option of total thyroidectomy. The potential complicatio ns of thyroidectomy were also discussed extensively in lay-man's terms, including but not li mited to the risk of general anesthesia, permanent voice changes, swallowing difficulties, p ossible need for tracheotomy, chronic neck and throat pain and undesirable scar. He wants t otal thyroidectomy. The need for longterm thyroid hormone replacement was also discussed. Written information summarizing these risks was also provided to the patient. All of the madeleine roger's questions were answered and he appeared to fully comprehend my explanations. I will also check his PTH and vitamin D levels to make sure he does not have primary hyperp arathyroidism. Maritza Phelan M.D. lad Shelton do, MD - 04/24/2013 1:26 PM PDT . PATIENT: Diamante Thompson [facility] MR#: [id number] DATE OF VISIT: 04/24/2013 REFERRING PROVIDER: Latha Tejeda MD PRIMARY CARE PROVIDER: Cynthia Hernandez MD CHIEF COMPLAINT: Thyroid nodule HPI: Diamante Thompson is a 73 y.o. male who was referred to the [facility]roid [facility] id [facility] by Dr. Tejeda for evaluation of his thyroid nodule discovered in 2008 . This has be en followed by US and this year it was noted that his node had a small increase in size to 1 cm . 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 He denies difficulty swallowing, neck pain, shortness of br eath, voice changes, pressure sensation in neck, bone pain, neurologic symptoms and neck sti ffness. He denies prior radiation exposure to the head and neck region. There is no family history of thyroid cancer. The patient's past medical history, including medical illnesses, surgeries, allergies and m edications were reviewed with the patient. In addition, the family and social history were r eviewed. These are also summarized in the corresponding sections of the patient's EMR chart . Past Medical History Diagnosis Date Elevated PSA Hypercholesteremia Nephrolithiasis Past Surgical History Procedure Date Lithotripsy Prostate biopsy Tonsillectomy No Known Allergies MEDICATIONS allopurinol 300 mg Oral tablet, Take 150 mg by mouth once daily. aspirin chewable 81 mg Oral tablet, chewable, Take 81 mg by mouth once daily. atorvastatin 40 mg Oral tablet, Take 40 mg by mouth once daily. fluticasone 50 mcg/actuation Nasal [place], Suspension, Instill 2 sprays into each nostril on ce daily. hydrochlorothiazide 50 mg Oral tablet, Take 50 mg by mouth once daily. potassium chloride SR 10 mEq Oral tablet,ER particles/crystals, Take 10 mEq by mouth once d aily. predniSONE 20 mg Oral tablet, Take by mouth once daily. tamsulosin 0.4 mg Oral capsule,extended release 24hr, Take 0.4 mg by mouth once daily. Family History Problem Relation Cancer Neg Hx Stroke Father Hypertension Father Hypertension Mother Heart Disease Neg Hx Thyroid Mother History Substance Use Topics Smoking status: Never Smoker Smokeless tobacco: Never Used Alcohol Use: 0.5 oz/week 1 drink(s) per week REVIEW OF SYSTEMS Review of Systems: In addition to the significant ROS already noted in the HPI, the remaind er of the review of systems is noted on the Medical Intake Form, which I reviewed with the p arnaldo. In addition, the following was reviewed: Constitutional symptoms Weight stable; Fatigue - no Eyes: No changes in vision, pain or discharge. Ears, Nose and Throat: Information in HPI. Respiratory: See HPI. In addition, no wheezing. Musculoskeletal: Joint Pain - no; No joint welling or stiffness. Muscle pain or weakness -no Cardiovascular: No chest pain or palpitations. Gastrointestinal: No loss of appetite, nausea, vomiting, diarrhea. Neurologic: No headaches, numbness or tingling. Skin: No history of malignancy or suspicious lesions. Endocrine: Heat intolerance - No; Cold intolerance - No EXAMINATION: BP 140/85 | Pulse 78 | Wt 89.812 kg (198 lb) Gen: He is a 73 y.o. male. He is awake, alert and comfortable with the examination. His weight is appropriate. He is normocephalic. Eyes: Pupils were equal, round and reactive. Extraocular motions were full. Ears: The pinnae are normal. External auditory canals show minimal cerumen bilaterally. The tympanic membranes are clear with normal anatomic landmarks and an aerated middle ear sp zeina. Nose: The nasal dorsum is straight and the nares are widely patent. The mucosa is pink and there are no lesions or masses noted. The septum was deviated to right Face: There are no suspicious cutaneous lesions noted of the face or head. Salivary Glands: The salivary glands are soft and show no lesions or masses within the par otid or submandibular glands bilaterally. There is no obvious obstruction of Mejia's or W lisa's ducts bilaterally. Oral Cavity: Normal lips and oral competence are noted. The dentition is good. The mucos a shows no lesions or masses. Oropharynx: The tonsillar pillars, palate and base of tongue did not demonstrate any concer guevara lesions or masses. Neck: The neck is atraumatic without laryngeal deviation. Thyroid is nodular. Lymphatic examination of the neck revealed no adenopathy Chest: Chest rise is symmetric and there is no audible wheezing or stridor Neuro: Extraocular movements are grossly intact. There is symmetric sensation and movemen t noted of the face. Hearing is grossly intact. Palatal elevation is symmetric and full. Tongue protrusion is midline. Laryngeal examination: No masses or lesions. Vocal cord mobility: normal Procedure Note: Procedure: Flexible Fiberoptic Laryngoscopy Surgeon: Maritza Phelan MD, SHARIFA QUINTANA MD Indications: Preop Procedure: After adequate topical anesthetic application, a flexible fiberoptic scope was inserted through the nasal cavities. After the rhinoscopy scope was passed through the more patent left nasal passage. The nasopharynx, larynx, hypopharynx were examined. Findings: The larynx and hypopharynx were without any mass or lesions. Vocal cord mucosa - There was no edema of true vocal cords; There was no erythema of mucosa . Vocal cord mobility: Right - mobile; Left - mobile Complications: None 02/27/2013 TSH 2.48 T4 1.24 Pathology: FNA Biopsy @ [facility] - Left lower lobe FNA with suspicion for a follicular neopl asm with a 40 % risk for malignancy by Afirma. 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 He also has had a history of nephrolithiasis however has not been worked up fo r hyperparathyroidism. Recommendation(s)/Plan. We would recommend a formal work up for hyperparathyroidism including a vitamin D, PTH, and ionized calcium. We will call him with the results of the test. If normal we will proceed w ith thyroid surgery. Regarding his thyroid nodule : I discussed with the patient the options of left hemithyroidectomy for definitive diagnosis and long-term treatment vs observation. I explained that observation would entail serial u ltrasounds and periodic fine needle aspiration as indicated. I discussed with him the limita tions of thyroid FNA as well. The potential complications of thyroidectomy were also discuss ed extensively in lay-man's terms, including but not limited to the risk of general anesthes ia, permanent voice changes, swallowing difficulties, chronic neck and throat pain and undes irable scar. The potential need for building manager thyroid hormone replacement was also discusse d. Written information summarizing these risks was also provided to the patient. All of th e patient's questions were answered and he appeared to fully comprehend my explanations. FU for preoperative appointment, Flexible laryngoscopy done SHARIFA QUINTANA MD Resident, PGY-4 [facility], Dept. of Surgery Pager [phone] documented in this e ncounter Plan of Treatment Not on filedocumented as of this encounter Procedures + +--------+ + + + | Procedure Name | Priori | Date/Time | Associated Diagnosis | Comments | | | ty | | | | + +--------+ + + + | PA | Routin | 04/24/2013 | Thyroid nodule | | | LARYNGOSCOPY,FLEXIBL | e | 6:10 PM | Neoplasm of | | | E, DIAGNOSTIC | | PDT | uncertain behavior | | | | | | of thyroid gland | | + +--------+ + + + | 12 LEAD ECG | Routin | 04/24/2013 | Thyroid nodule | Results for this | | | e | 2:39 PM | | procedure are in the | | | | PDT | | results section. | + +--------+ + + + documented in this encounter Results 12 LEAD ECG (04/24/2013 2:39 PM PDT) + + + + + + | Component | Value | Ref Range | Performed | Pathologist | | | | | At | Signature | + + + + + + | VENTRICULAR | 87 | BPM | [facility] | | | RATE | | | OF | | | | | | CARDIOLOGY | | + + + + + + | ATRIAL RATE | 86 | BPM | [facility] | | | | | | OF | | | | | | CARDIOLOGY | | + + + + + + | P-R | 184 | ms | [facility] | | | INTERVAL | | | OF | | | | | | CARDIOLOGY | | + + + + + + | QRS | 95 | ms | [facility] | | | DURATION | | | OF | | | | | | CARDIOLOGY | | + + + + + + | QT | 361 | ms | [facility] | | | | | | OF | | | | | | CARDIOLOGY | | + + + + + + | QTC | 434 | ms | [facility] | | | | | | OF | | | | | | CARDIOLOGY | | + + + + + + | P AXIS | 37 | degrees | [facility] | | | | | | OF | | | | | | CARDIOLOGY | | + + + + + + | R AXIS | -47 | degrees | [facility] | | | | | | OF | | | | | | CARDIOLOGY | | + + + + + + | T AXIS | 45 | degrees | [facility] | | | | | | OF | | | | | | CARDIOLOGY | | + + + + + + | EKG | Sinus rhythmLeft | | [facility] | | | DIAGNOSIS | anterior fascicular | | OF | | | | blockAbnormal ECG"I have | | CARDIOLOGY | | | | personally interpreted | | | | | | this report, either | | | | | | alone or with a | | | | | | trainee." Confirmed by | | | | | | STECKER, DARRIAN ([id number]) on | | | | | | 04/25/2013 2:52:16 PM | | | | + + + + + + + + | Specimen | + + | | + + + + + | Narrative | Performed At | + + + | Please click | [facility] | | on view image for the detailed interpretation from [place] results. | CARDIOLOGY | + + + + + | Procedure Note | + + | Interface, Cardiology Results - 04/25/2013 2:52 PM PDT Please click on view image | | for the detailed interpretation from [facility] results. | + + + + + + + | Performing | Address | City/State/Zipcode | Phone Number | | Organization | | | | + + + + + | [facility] | [address] | [place], [place] | | | CARDIOLOGY | [address] | [address] | | + + + + + VITAMIN D, 25-HYDROXY, SERUM (04/24/2013 2:23 PM PDT) + + + + + + | Component | Value | Ref Range | Performed | Pathologist | | | | | At | Signature | + + + + + + | VITAMIN D | 20.3 (L) | 30 - 80 ng/mL | [facility] | | | 25 HYDROXY | | | LABORATORY | | | | | | SERVICES, | | | | | | SPECIAL IMM | | | | | | + COAG | | + + + + + + + + | Specimen | + + | Blood - Blood | + + + + + | Narrative | Performed At | + + + | REFERENCE INTERVAL: Vitamin D, 25-Hydroxy 0-17years: | [facility] | | Deficiency: less than 20 ng/mL Optimum level: | LABORATORY | | greater than or equal to 20 ng/mL* | SERVICES, | | *(Germain CL et al. Pediatrics 2008; 122:1128-38.) 18 | SPECIAL IMM + | | years and older: Deficiency: less than 20 | COAG | | ng/mL Insufficiency: 20-29 ng/mL | | | Optimum Level: 30-80 ng/mL High: | | | 81-150 ng/ml Toxic: Greater than | | | 150 ng/mL This assay accurately quantifies the sum of Vitamin D3 | | | 25-hydroxy and Vitamin D2, 25-hydroxy. Reference range | | | change effective 02/06/2013. | | + + + + + + + + | Performing | Address | City/State/Zipcode | Phone Number | | Organization | | | | + + + + + | [facility] | [address] | [place] [address] | | | SERVICES, SPECIAL | [address] | | | | IMM + COAG | | | | + + + + + CALCIUM, IONIZED, WHOLE BLOOD (04/24/2013 2:23 PM PDT) + +-------+ + + + | Component | Value | Ref Range | Performed | Pathologist | | | | | At | Signature | + +-------+ + + + | HANSEL ICA, | 1.27 | 1.14 - 1.32 | [facility] | | | WHOLE BLD | | mmol/L | LABORATORY | | | | | | SERVICES, | | | | | | CORE | | + +-------+ + + + | PH, WHOLE | 7.43 | | [facility] | | | BLOOD | | | LABORATORY | | | | | | SERVICES, | | | | | | CORE | | + +-------+ + + + | ICA, | 1.28 | 1.14 - 1.28 | [facility] | | | CORRECTED | | mmol/L | LABORATORY | | | TO PH 7.4 | | | SERVICES, | | | | | | CORE | | + +-------+ + + + + + | Specimen | + + | Blood - Blood | + + + + + + + | Performing | Address | City/State/Zipcode | Phone Number | | Organization | | | | + + + + + | [facility] | [address] | [place] [address] | | | SERVICES, CORE | [address] | | | + + + + + PTH, SERUM (04/24/2013 2:23 PM PDT) + + + + + + | Component | Value | Ref Range | Performed | Pathologist | | | | | At | Signature | + + + + + + | PARATHYROID | 93.6 (H) | 15.0 - 85.0 | [facility] | | | . INTACT | | pg/ml | LABORATORY | | | | | | SERVICES, | | | | | | SPECIAL IMM | | | | | | + COAG | | + + + + + + + + | Specimen | + + | Blood - Blood | + + + + + | Narrative | Performed At | + + + | New reference range and methodology effective 08/26/12. | [facility] | | | LABORATORY | | | SERVICES, | | | SPECIAL IMM + | | | COAG | + + + + + + + + | Performing | Address | City/State/Zipcode | Phone Number | | Organization | | | | + + + + + | [facility] | [address] | [place] [address] | | | SERVICES, SPECIAL | [address] | | | | IMM + COAG | | | | + + + + + BASIC METABOLIC SET (NA, K, CL, TCO2, BUN, CR, GLU, CA) (04/24/2013 2:23 PM PDT) + +---------+ + + + | Component | Value | Ref Range | Performed | Pathologist | | | | | At | Signature | + +---------+ + + + | GLUCOSE, | 209 (H) | 60 - 99 mg/dL | [facility] | | | PLASMA | | | LABORATORY | | | (LAB) | | | SERVICES, | | | | | | CORE | | + +---------+ + + + | BUN, PLASMA | 21 (H) | 6 - 20 mg/dL | [facility] | | | (LAB) | | | LABORATORY | | | | | | SERVICES, | | | | | | CORE | | + +---------+ + + + | CREATININE | 1.15 | 0.70 - 1.30 | [facility] | | | PLASMA | | mg/dL | LABORATORY | | | (LAB) | | | SERVICES, | | | | | | CORE | | + +---------+ + + + | EGFR | >60 | >60 mL/min | [facility] | | | - | | | LABORATORY | | | BRUNEIAN | | | SERVICES, | | | | | | CORE | | + +---------+ + + + | EGFR NON | >60 | >60 mL/min | [facility] | | | -DELTA | | | LABORATORY | | | RICAN | | | SERVICES, | | | | | | CORE | | + +---------+ + + + | SODIUM, | 138 | 136 - 145 | [facility] | | | PLASMA | | mmol/L | LABORATORY | | | (LAB) | | | SERVICES, | | | | | | CORE | | + +---------+ + + + | POTASSIUM, | 3.1 (L) | 3.4 - 5.0 | [facility] | | | PLASMA | | mmol/L | LABORATORY | | | (LAB) | | | SERVICES, | | | | | | CORE | | + +---------+ + + + | CHLORIDE, | 99 | 97 - 108 mmol/L | [facility] | | | PLASMA | | | LABORATORY | | | (LAB) | | | SERVICES, | | | | | | CORE | | + +---------+ + + + | TOTAL CO2, | 32 | 21 - 32 mmol/L | [facility] | | | PLASMA | | | LABORATORY | | | (LAB) | | | SERVICES, | | | | | | CORE | | + +---------+ + + + | CALCIUM, | 9.9 | 8.6 - 10.2 | [facility] | | | PLASMA | | mg/dL | LABORATORY | | | (LAB) | | | SERVICES, | | | | | | CORE | | + +---------+ + + + | ANION GAP | 7 | mmol/L | [facility] | | | | | | LABORATORY | | | | | | SERVICES, | | | | | | CORE | | + +---------+ + + + | POTASSIUM | No Hemo | | [facility] | | | CMNT | | | LABORATORY | | | | | | SERVICES, | | | | | | CORE | | + +---------+ + + + + + | Specimen | + + | Blood - Blood | + + + + + | Narrative | Performed At | + + + | GFR is estimated using the MDRD equation recommended by the | [facility] | | National Kidney Disease Education Program. Estimated GFR | LABORATORY | | Interpretive Information: <60 mL/min/1.73 sq m | SERVICES, CORE | | Chronic Kidney Disease <15 mL/min/1.73 sq m | | | Kidney Failure Estimated GFR greater that 60 mL/min/1.73 sq m is of | | | limited clinical value. 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
--- OUTSIDE RECORDS SUMMARY | ~2019-07-09 | XMS | Encounter Summary ---
Demographics + + + | Address | [address] | | | [place] [address] | + + + | Home Phone | | + + + | Preferred Language | Unknown | + + + | Marital Status | | + + + | Restorationism Affiliation | MET | + + + | Race | White | + + + | Ethnic Group | Not or | + + + Author + + + | Author | [facility] | + + + | Organization | [facility] | + + + | Address | Unknown | + + + | Phone | Unavailable | + + + Support + + + + + | Name | Relationship | Address | Phone | + + + + + | Mary Jane Thompson | ECON | [address] | | | | | [place] | | | | | [address] | | + + + + + | Hansel Jay | ECON | Unknown | | + + + + + | Brittany Thompson | ECON | Unknown | | + + + + + Care Team Providers + +------+ + | Care Metallurgist Helper Name | Role | Phone | + +------+ + PCP | Unavailable | + +------+ + Encounter Details +--------+ + + + + | Date | Type | Department | Care Team | Description | +--------+ + + + + | 10/19/ | Hospital | LAB CYTOPATHOLOGY | | | | 2009 | Encounter | [address] | | | | | | [place], | | | | | | [place] [address] | | | +--------+ + + + [...] | + +--------+ + + + | NON IT PROGRAMMER CYTOLOGY | Routin | 10/19/2009 | | Results for this | | | e | | | procedure are in the | | | | | | results section. | + +--------+ + + + documented in this encounter Results NON IT PROGRAMMER CYTOLOGY (10/19/2009) + + + + + + | Component | Value | Ref Range | Performed | Pathologist | | | | | At | Signature | + + + + + + | NON-IT PROGRAMMER | SOURCE OF SPECIMEN:A | | [facility] | | | CYTOLOGY | Thyroid FNA, done by | | DEPARTMENT | | | | clinicianGROSS | | OF | | | | DESCRIPTION:CLINICAL | | PATHOLOGY | | | | HISTORY: Possible new | | | | | | thyroid nodule: TSH and | | | | | | free T4 normal | | | | | | Final Cytologic | | | | | | Diagnosis:Left thyroid | | | | | | nodule, fine needle | | | | | | aspiration: - | | | | | | Sparse, non-diagnostic | | | | | | (see comment) | | | | | | Comment: The [facility] | | | | | | slide is markedly | | | | | | hemorrhagic with only | | | | | | rarecytologically bland | | | | | | follicular cells. The | | | | | | specimen is not cellular | | | | | | enoughfor a definitive | | | | | | diagnosis. Clinical | | | | | | correlation is | | | | | | necessary. Case | | | | | | reviewed by:Lina Sauer, | | | | | | CT (ASCP)Mackenzie Ibanez | | | | | | [place] | | | | | | /Cytopathology | | | | | | Alfredo Spence | | | | | | Haley | | | | | | Mane/Pathologist | | | | | | My electronic signature | | | | | [...] Diagnostician: | | | | | | Bryan De Leon | | | | | | ManePathologistElectroni | | | | | | stefano Signed 10/25/2009 | | | | + + + + + + + + | Specimen | + + | Other | + + + + + + + | Performing | Address | City/State/Zipcode | Phone Number | | Organization | | | | + + + + + | [facility] | [address] | [place] [address] | | | PATHOLOGY | [address] | | | + + + + + documented in this encounter Visit Diagnoses Not on filedocumented in this encounter"
--- OUTSIDE RECORDS SUMMARY | ~2019-07-09 | XMS | Encounter Summary ---
Demographics + + + | Address | [address] | | | [place] [address] | + + + | Home Phone | | + + + | Preferred Language | Unknown | + + + | Marital Status | | + + + | Christian Affiliation | MET | + + + | Race | White | + + + | Ethnic Group | Not or | + + + Author + + + | Author | [facility] | + + + | Organization | [facility] | + + + | Address | Unknown | + + + | Phone | Unavailable | + + + Support + + + + + | Name | Relationship | Address | Phone | + + + + + | Mary Jane Thompson | ECON | [address] | | | | | [place] | | | | | [address] | | + + + + + | Hansel Thompson | ECON | Unknown | | + + + + + | Brittany Thompson | ECON | Unknown | | + + + + + Care Team Providers + +------+ + | Care Extrusion Utility Worker Name | Role | Phone | + +------+ + | Alex Hernandez MD | PCP | | + +------+ + Reason for Visit + + + | Reason | Comments | + + + | Pre-op evaluation | | + + + Encounter Details +--------+ + + + + | Date | Type | Department | Care Team | Description | +--------+ + + + + | 05/22/ | Telephone-S | Preoperative | | Pre-op evaluation | | 2012 | cheduled | [facility] at | | | | | | MPV 4th Floor | | | | | | Stay [address] | | | | [address] | | | | | | Mailcode: [id number] | | | | | | [facility] | | | | | | [address] [place], [place] | | | | | | [address] | | | | | | [phone] | | | +--------+ + + + + Anesthesia Record + + + + + | Procedure Name | Responsible | Anesthesia Start | Anesthesia Stop Time | | | Anesthesiologist | Time | | + + + + + | TOTAL | Flor A Sara, | 05/28/13 1100 | 05/28/13 1408 | | THYROIDECTOMY,specim | MD | | | | en sent to pathology | | | | | (N/A Neck) | | | | + + + + + +----+---+ + + | Da | T | Event | Comment | | te | i | | | | | m | | | | | e | | | +----+---+ + + | 11 | 1 | | | | /1 | 0 | | | | 3/ | 5 | | | | 20 | 3 | | | | 13 | | | | +----+---+ + + | | 1 | Pt. Check | Prior to anesthesia start, pt. Identified, examined, chart | | | 0 | | reviewed, PARLakshmi held, anesthetic plan made or approved by | | | 5 | | attending anesthesiologist. NPO status confirmed as appropriate | | | 3 | | for procedure Preoperative evaluation: unchanged | +----+---+ + + | | 1 | An Start | | | | 1 | | | | | 0 | | | | | 0 | | | +----+---+ + + | | 1 | Eq Check | Anesthesia machine checked Equipment verified | | | 1 | | | | | 0 | | | | | 2 | | | +----+---+ + + | | 1 | An Start | | | | 1 | Data | | | | 0 | | | | | 2 | | | +----+---+ + + | | 1 | Vitals | Monitors applied Vital signs checked Patient ready for anesthesia | | | 1 | Checked | | | | 0 | | | | | 2 | | | +----+---+ + + | | 1 | Std. Airway | | | | 1 | Mgt. 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 Pharynx suctioned. Patient obeys | | | 4 | | commands. Adequate pulmonary mechanics. | | | 0 | | | | | 5 | | | +----+---+ + + | | 1 | an stop | | | | 4 | data | | | | 0 | | | | | 5 | | | +----+---+ + + | | 1 | Anesthesia | | | | 4 | End | | | | 0 | | | | | 8 | | | +----+---+ + + +------+ | Meds | +------+ + + + No medications | on file. | + + + + + | No agents on file. | + + + + | No blood administrations on file. | + + +--------+ + + + | Type | Details | Placement | Removal | +--------+ + + + | RETIRE | 05/28/13; 0921; 05/29/13; 1330; | 05/28/13 0921 by | 05/29/13 1330 by | | D - | No; started by ivy; 20; Right; | Haydee Delaney | Alivia E | | Periph | Hand; Lidocaine; No; Positive | BRIAN Kemp | BRIAN Lyn | | eral | | | | | Line | | | | +--------+ + + + | RETIRE | 05/28/13; 1134; midline; neck; | 05/28/13 1134 by | 05/03/17 1622 by | | D - | 05/03/17 (Automatic cleanup per | Bee Ansari RN | Discontinued After | | Incisi | RA 3006--contact admin for | | Discharge | | on | questions.); 1622 (Automatic | | | | | cleanup per RA 3006--contact | | | | | admin for questions.) | | | +--------+ + + + [...] + + documented as of this encounter Patient Instructions Patient Instructions Victorina Bello RN - 05/22/2013 10:52 AM PSTFormatting of this note m ight be different from the original. PREOPERATIVE INSTRUCTIONS Do not eat or drink anything after midnight the night before surgery. TAKE the following medications with a sip of water on the morning of surgery: HYDROCODONE 5 MG-ACETAMINOPHEN 325 MG TABLET as needed. LORAZEPAM 1 MG TABLET As needed ALLOPURINOL 300 MG TABLET Take 150 mg by mouth once daily. CYCLOBENZAPRINE 10 MG TABLET three times daily as needed. Do NOT take the following medications on the morning of surgery: AMITRIPTYLINE 25 MG TABLET as needed. ASPIRIN 81 MG CHEWABLE TABLET Take 81 mg by mouth once daily. ATORVASTATIN 40 MG TABLET Take 40 mg by mouth once daily. FLUTICASONE 50 MCG/ACTUATION NASAL SPRAY, SUSP Instill 2 sprays into each nostril as needed . HYDROCHLOROTHIAZIDE 25 MG TABLET Take 25 mg by mouth once daily. POTASSIUM CITRATE ER 10 MEQ (1,080 MG) TABLET,EXTENDED RELEASE Take 10 mEq by mouth once da chuck. 4-6 tabs TAMSULOSIN ER 0.4 MG CAPSULE,EXTENDED RELEASE 24 HR Take 0.4 mg by mouth once daily. Do not take any Aspirin, vitamin E or non-steroidal anti-inflammatory (NSAIDs i.e. Advil , Aleve, Ibuprofen) or herbal supplements seven days prior to your surgery. These drugs may interfere with normal blood clotting and may cause excessive bleeding and bruising during or after the surgery. If you are taking Coumadin (warfarin), Plavix or any other blood thinners please let you r surgical team know as medication changes will be necessary. If you need a pain medication for general purposes, use Tylenol as directed. If you are in doubt about any medications that you are taking, please contact our office . Important Guidelines Do not smoke, drink alcohol or use recreational drugs for 24 hours before your surgery Do not eat any hard candy or chew gum after midnight the night before your surgery. Watch for any change in your health condition. Let your surgeon know right away if you do not feel well. Do not wear makeup, perfume, lotions or powder. Remove any nail belgian from at least one fingernail. Do not wear any jewelry to the hospital. Wear loose, comfortable clothing. Bring the case and solution for your contact lenses or wear your glasses. Leave all your valuables at home. Allow enough travel time so you re not late for your check in for surgery. Take a bath or shower and remember to shampoo your hair using your usual hair product be fore your arrival at the hospital. Please remember to brush your teeth the night before and the morning of your procedure. Surgery Check in Locations Day Stay Unit [facility], fourth floor Room 4511 Surgery Check in Time: Someone from your surgeon's office or [facility] will provide you with information regarding your check in time. If you have any questions about this, pl ease contact your surgeon's office. Going Home Your surgical team will decide when you are medically ready to go home. If you are released to go home on the same day as your procedure/surgery please note the following: You will not be able to drive. You will be required to have a competent adult drive you or accompany you by taxi or pub lic transportation on the day of discharge. It is also required that you have a competent adult assist you and look after you on the first night after you have undergone regional blocks (72 hours for patients going home with regional block pump), deep sedation, and/or general anesthesia. If you have questions or concerns after you go home, call your doctor s office. If it is after office hours, call the [facility] taper operator at [phone] and ask them to page your doc tor. documented in this encounter Plan of Treatment Not on filedocumented as of this encounter Visit Diagnoses Not on filedocumented in this encounter"
--- OUTSIDE RECORDS SUMMARY | ~2019-07-09 | XMS | Encounter Summary ---
Demographics + + + | Address | [address] | | | [place] [address] | + + + | Home Phone | | + + + | Preferred Language | Unknown | + + + | Marital Status | | + + + | Islam Affiliation | MET | + + + | Race | White | + + + | Ethnic Group | Not or | + + + Author + + + | Author | [facility] | + + + | Organization | [facility] | + + + | Address | Unknown | + + + | Phone | Unavailable | + + + Support + + + + + | Name | Relationship | Address | Phone | + + + + + | Mary Jane Thompson | ECON | [address] | | | | | [place] | | | | | [address] | | + + + + + | Hansel Thompson | ECON | Unknown | | + + + + + | Brittany Thompson | ECON | Unknown | | + + + + + Care Team Providers + +------+ + | Care Warehouse Associate Driver Name | Role | Phone | + +------+ + | Alex Hernandez MD | PCP | | + +------+ + Encounter Details +--------+ + + + + | Date | Type | Department | Care Team | Description | +--------+ + + + + | 04/24/ | Hospital | Cardiac | Sjh, Car Ecg Tech | | | 2012 | Encounter | Non-Invasive Testing | [address] | | | | | at [facility] | [facility] | | | | | [address] | [place] [address] | | | | | Loop Mailcode: | | | | | | [id number] [facility] | | | | | | [facility] | | | | | | [place], [place] | | | | | | [address] | | | | | | [phone] | | | +--------+ + + + [...] + + documented as of this encounter Medications at Time of Discharge [...] as | | | | | | [place], Suspension | needed. | | | | | + + + +---------+ + + | | as needed. | | 0 | 09/26/20 | | | HYDROCODONE-ACETAMIN | | | [...] by | | | | | | DARRIAN MALLOY ([id number]) on | | | | | | 04/25/2013 2:52:16 PM | | | | + + + + + + + + | Specimen | + + | | + + + + + | Narrative | Performed At | + + + | Please click | [facility] | | on view image for the detailed interpretation from [employer] results. | CARDIOLOGY | + + + + + | Procedure Note | + + | Interface, Cardiology Results - 04/25/2013 2:52 PM PDT Please click on view image | | for the detailed interpretation from [employer] results. | + + + + + + + | Performing | Address | City/State/Zipcode | Phone Number | | Organization | | | | + + + + + | [facility] | [address] | [place], [place] | | | CARDIOLOGY | [address] | [address] | | + + + + + documented in this encounter Visit Diagnoses Not on filedocumented in this encounter
--- OUTSIDE RECORDS SUMMARY | ~2019-07-09 | XMS | Encounter Summary ---
Demographics + + + | Address | [address] | | | [place] [address] | + + + | Home Phone | | + + + | Preferred Language | Unknown | + + + | Marital Status | | + + + | Gnosticist Affiliation | MET | + + + [...] [place] | | | | | [address] | | + + + + + | Hansel Jay | ECON | Unknown | | + + + + + | Brittany Thompson | ECON | Unknown | | + + + + + Care Team Providers + +------+ + | Care Chain Link Fence Installer Name | Role | Phone | + +------+ + PCP | Unavailable | + +------+ + Encounter Details +--------+ + + + + | Date | Type | Department | Care Team | Description | +--------+ + + + + | 04/08/ | Hospital | Registration ISELA | | | | 2012 | Encounter | [address] | | | | | | [place], | | | | | | [place] [address] | | | +--------+ + + + [...]
--- OUTSIDE RECORDS SUMMARY | ~2019-07-09 | XMS | Encounter Summary ---
Demographics + + + | Address | [address] | | | [place] [address] | + + + | Home Phone | | + + + | Preferred Language | Unknown | + + + | Marital Status | | + + + | Spiritism Affiliation | 1073 | + + + | Race | Unknown | + + + | Ethnic Group | Unknown | + + + Author + + + | Author | [facility] | | | and [place] | + + + | Organization | [facility] | | | and [place] [...] [place] | | | | | [address] | | + + + + + | Dm Thompson | ECON | Unknown | | + + + + + Care Team Providers + +------+ + | Care Cutter In Name | Role | Phone | + [...] Prostate | | | | [address] | [place], [place] | Vaporization | | | | [place], [place] | [address] | | | | | [address] | [phone] | | | | | [phone] | | | +--------+---------+ + + + [...] 02/09/2017 Date of Discharge: 02/10/2017 Admitting Physician: Heladio Cheney MD PCP: Alex Hernandez Discharging Physician: [...] signed by: Heladio Cheney, 02/10/2017 6:52 [facility] documented in this enc ounter Discharge [...]
--- OUTSIDE RECORDS SUMMARY | ~2019-07-09 | XMS | Encounter Summary ---
Demographics + + + | Address | [address] | | | [place] [address] | + + + | Home Phone | | + + + | Preferred Language | Unknown | + + + | Marital Status | | + + + | Buddhism Affiliation | 1073 | + + + | Race | Unknown | + + + | Ethnic Group | Unknown | + + + Author + + + | Author | [facility] | | | and [place] | + + + | Organization | [facility] | | | and [place] | + + + | Address | Unknown | + + + | Phone | Unavailable | + + + Support + + + + + | Name | Relationship | Address | Phone | + + + + + | Lien Thompson | ECON | [address] | | | | | [place] | | | | | [address] | | + + + + + | Dm Thompson | ECON | Unknown | | + + + + + Care Team Providers + +------+ + | Care Meter Tester Polyphase Name | Role | Phone | + +------+ + PCP | Unavailable | + +------+ + Encounter Details +--------+ + + + + | Date | Type | Department | Care Team | Description | +--------+ + + + + | 10/12/ | Hospital | [facility] | | | | 2009 | Encounter | [facility] | | | | | | [address] | | | | | | [place] | | | | | | [address] | | | | | | [phone] | | | +--------+ + + + [...]
--- OUTSIDE RECORDS SUMMARY | ~2019-07-09 | XMS | Encounter Summary ---
Demographics + + + | Address | [address] | | | [place] [address] | + + + | Home Phone | | + + + | Preferred Language | Unknown | + + + | Marital Status | | + + + | Nondenominational Affiliation | 1073 | + + + | Race | Unknown | + + + | Ethnic Group | Unknown | + + + Author + + + | Author | [facility] | | | and [place] | + + + | Organization | [facility] | | | and [place] [...] [place] | | | | | [address] | | + + + + + | Dm Thompson | ECON | Unknown | | + + + + + Care Team Providers + +------+ + | Care Osd Clerk Name | Role | Phone | + +------+ + | Alex Hernandez MD | PCP | | + +------+ + Encounter Details +--------+ + + + + | Date | Type | Department | Care Team | Description | +--------+ + + + + | 02/09/ | Anesthesia | [facility] | Jamshid Hall, | | | 2017 | Event | [facility] | MD [address] | | | | | [address] | [place], [place] | | | | | [place], [place] | [address] | | | | | [address] | | | | | | [phone] | Boston Alexander | | | | | | II, MD [address] | | | | | [address] [place] | | | | | | [place] [address] | | | | | | | | | | | | | | +--------+ + + + + Anesthesia Record + + + + + | Procedure Name | Responsible | Anesthesia Start | Anesthesia Stop Time | | | Anesthesiologist | Time | | + + + + + | Cystoscopy, Lorenza | Jamshid Hall MD | 02/09/17 1418 | 02/09/17 1606 | | Laser Prostate | | | | | Vaporization (N/A | | | | | Bladder) | | | | + + + + + +----+---+ + + | Da | T | Event | Comment | | te | i | | | | | m | | | | | e | | | +----+---+ + + | 07 | 1 | Antibiotic | | | /2 | 0 | Given | | | 8/ | 3 | | | | 20 | 3 | | | | 17 | | | | +----+---+ + + | | 1 | | | | | 4 | | | | | 0 | | | | | 0 | | | +----+---+ + + | | 1 | An Checkout | Pre-use anesthesia machine/equipment checkout. | | | 4 | | | | | 1 | | | | | 0 | | | +----+---+ + + | | 1 | An Start | Reassessment prior to anesthesia induction/procedure. | | | 4 | | | | | 1 | | | | | 8 | | | +----+---+ + + | | 1 | Preoxygenat | | | | 4 | ed | | | | 2 | | | | | 1 | | | +----+---+ + + | | 1 | An | | | | 4 | Induction | | | | 2 | | | | | 2 | | | +----+---+ + + | | 1 | An | | | | 4 | Intubation | | | | 2 | | | | | 3 | | | +----+---+ + + | | 1 | AN Bite | | | | 4 | Block | | | | 2 | | | | | 4 | | | +----+---+ + + | | 1 | Wilton | | | | 4 | 43-degrees | | | | 2 | | | | | 9 | | | +----+---+ + + | | 1 | Breathing | | | | 4 | Spontaneous | | | | 2 | ly | | | | 9 | | | +----+---+ + + | | 1 | First | | | | 4 | Inc/Proc St | | | | 3 | | | | | 7 | | | +----+---+ + + | | 1 | Wilton off | | | | 5 | | | | | 5 | | | | | 6 | | | +----+---+ + + | | 1 | an stop | | | | 6 | data | | | | 0 | | | | | 1 | | | +----+---+ + + | | 1 | Extubated | | | | 6 | Awake | | | | 0 | | | | | 6 | | | +----+---+ + + | | 1 | An Stop | Patient handed off to recovery nurse. | | | 0 | | | | | 6 | | | +----+---+ + + +------+ | Meds | +------+ + + + | Name | Total | + + + | fentaNYL | 100 mcg | + + + | lidocaine 2% (PF) | 100 mg | + + + | propofol | 170 mg | + + + | dexamethasone | 10 mg | + + + | ondansetron | 4 mg | + + + | ePHEDrine | 10 mg | + + + | lactated ringers (LR) infusion | 1,600 mL | + + + + + | Name | + + | N2O Flow Rate (L/Min) | + + | O2 Flow Rate (L/Min) | + + | Insp O2 | + + | Exp SEV | + + | Air Flow Rate (L/Min) | + + + + | No blood administrations on file. | + + +--------+ + + + | Type | Details | Placement | Removal | +--------+ + + + | [READ | 06/18/15; 0757; 10/07/18 | 06/18/15756 by | 10/07/181642 by | | ONLY] | (Removed/Completed by [...] | | +--------+ + + + | Periph | 02/09/17; 1041; Distal; Forearm; | 02/09/17 1041 by | 02/10/17 1100 by | | eral | [id number]-[id number] catheter system; | Bea Hartley RN | Parris Tim RN | | IV | 20 gauge; distraction, | | | | | intradermal injection; short term | | | | | use; 02/10/17; 1100 | | | +--------+ + + + | Airway | Placement Date: 02/09/17; | 02/09/17 1423 by | 02/09/17 1606 by | | | Placement Time: 1423 (created via | Jamshid Hall MD | Jamshid Hall MD | | | procedure documentation); Mask | | | | | Ventilation: Dif req 2; Attempts: | | | | | 1; Airway Type: laryngeal mask; | | | | | Size: 5; Trauma: none; Placement | | | | | Check: exhaled CO2 detection | | | | | device; Removal Date: 02/09/17; | | | | | Removal Time: 1606 | | | +--------+ + + + | Read | 02/09/17; 1521; perineum; healing | 02/09/17 1521 by | 02/10/17 1100 by | | only - | within expectations; 02/10/17; | Malcom Bey RN | Parris Tim RN | | | 1100 | | | | Incisi | | | | | on | | | | +--------+ + + + | Urethr | 02/09/17; 1555; indicated due to | 02/09/17 1555 by | 02/10/17 0730 by | | al | specific surgical procedure; All | Mackenzie Pitt RN | Parris Tim RN | | Cathet | elements; All elements; All | | | | er | elements; indwelling triple lumen | | | | | catheter; 100% silicone; 22; | | | | | None; 1; 30; 30; other (see | | | | | comments) (general anesthesia); | | | | | drainage bag to dependent | | | | | drainage; short term use; | | | | | 02/10/17; 729 | | | +--------+ + + + [...] | + +--------+ + + + | ANE AIRWAY NOTE | Routin | 02/09/2017 | | Results for this | | | e | 2:35 PM | | procedure are in the | | | | PDT | | results section. | + +--------+ + + + documented in this encounter Results Anesthesia Airway Note (02/09/2017 2:35 PM PDT) + + + | Narrative | Performed At | + + + | Jamshid Hall MD 02/09/2017 14:35 Anesthesia Airway | | | Placement 02/09/2017 14:23 Preprocedure check: patient identified, | | | suction, airway equipment checked, oxygen, airway assessed and | | | patient reassessment prior to induction Rapid Sequence Induction: no | | | Mask ventilation: difficult requiring 2 hands Attempts: 1 Airway | | | type: laryngeal mask Size: 5 Cuffed: cuffed Route, reference point: | | | center of mouth Trauma: none Tube placement verification: carbon | | | dioxide detection Performing provider: JAMSHID HALL | | | Electronically Signed by: Jamshid Hall MD | | | ESig date/time: 02/09/2017 14:35 | | | | | + + + + + | Procedure Note | + + | Jamshid Hall MD - 02/09/2017 2:35 PM PDT Anesthesia Airway Placement02/09/2017 | | 14:23Preprocedure check: patient identified, suction, airway equipment checked, oxygen, | | airway assessed and patient reassessment prior to inductionRapid Sequence Induction: | | noMask ventilation: difficult requiring 2 handsAttempts: 1Airway type: laryngeal | | maskSize: 5Cuffed: cuffedRoute, reference point: center of mouthTrauma: noneTube | | placement verification: carbon dioxide detectionPerforming provider: JAMSHID HALL | | TElectronically Signed by: MD Hayden Haro | | date/time: 02/09/2017 14:35 | |Size: 5 | |Cuffed: cuffed | |Route, reference point: center of mouth | |Trauma: none | |Tube placement verification: carbon dioxide detection | |Performing provider: JAMSHID HALL | | | | | |Electronically Signed by: MD Hayden Haro date/time: 14:35 | | | + + documented in this encounter Visit Diagnoses Not on filedocumented in this encounter Administered Medications + +--------+ +-------+------+------+ | Medication Order | MAR | Action | Dose | Rate | Site | | | Action | Date | | | | + +--------+ +-------+------+------+ | dexamethasone (DECADRON) 10 | Given | 02/10/20 | 10 mg | | | | mg/mL injection Intravenous, | | 17 2:27 | | | | | PRN, Starting 02/09/17 at | | PM PDT | | | | | 1427, Anesthesia Intra-op | | | | | | + +--------+ +-------+------+------+ +---+---+ | | | +---+---+ + +-------+ +-------+---+---+ | ePHEDrine 50 mg/mL injection | Given | 02/10/20 | 10 mg | | | | PRN, Starting Sun02/09/17 at | | 17 3:38 | | | | | 1538, Anesthesia Intra-op | | PM PDT | | | | + +-------+ +-------+---+---+ +---+---+ | | | +---+---+ + +-------+ +---------+---+---+ | fentaNYL (PF) injection | Given | 02/10/20 | 100 mcg | | | | Intravenous, PRN, Pain, Starting | | 17 2:22 | | | | | Sun02/09/17 at 1422, Anesthesia | | PM PDT | | | | | Intra-op | | | | | | + +-------+ +---------+---+---+ +---+---+ | | | +---+---+ + +---------+ +---+---+---+ | lactated ringers (LR) infusion | New Bag | 02/10/20 | | | | | at 100 mL/hr, Intravenous, | | 17 2:34 | | | | | CONTINUOUS, Starting Sun02/09/17 | | PM PDT | | | | | at 1015, Pre-op | | | | | | + +---------+ +---+---+---+ +---------+ +--------+-------+---+ | New Bag | 02/10/20 | 1,000 | 100 | | | | 17 10:32 | mLs | mL/hr | | | | AM PDT | | | | +---------+ +--------+-------+---+ +---+---+ | | | +---+---+ + +-------+ +--------+---+---+ | lidocaine (PF) 2% injection | Given | 02/10/20 | 100 mg | | | | PRN, Starting Sun02/09/17 at | | 17 2:22 | | | | | 1422, Anesthesia Intra-op | | PM PDT | | | | + +-------+ +--------+---+---+ +---+---+ | | | +---+---+ + +-------+ +------+---+---+ | ondansetron (ZOFRAN) injection | Given | 02/10/20 | 4 mg | | | | PRN, Nausea, Vomiting, Starting | | 17 2:27 | | | | | 02/09/17 at 1427, Anesthesia | | PM PDT | | | | | Intra-op | | | | | | + +-------+ +------+---+---+ +---+---+ | | | +---+---+ + +-------+ +-------+---+---+ | propofol (DIPRIVAN) injection | Given | 02/10/20 | 40 mg | | | | Intravenous, PRN, Starting Fri | | 17 3:22 | | | | | 02/09/17 at 1422, Anesthesia | | PM PDT | | | | | Intra-op | | | | | | + +-------+ +-------+---+---+ +-------+ +--------+---+---+ | Given | 02/10/20 | 130 mg | | | | | 17 2:22 | | | | | | PM PDT | | | | +-------+ +--------+---+---+ +---+---+ | | | +---+---+ documented in this encounter"
--- OUTSIDE RECORDS SUMMARY | ~2019-07-09 | XMS | Encounter Summary ---
Demographics + + + | Address | [address] | | | [place] [address] | + + + | Home Phone | | + + + | Preferred Language | Unknown | + + + | Marital Status | | + + + | Mu-Ism Affiliation | MET | + + + | Race | White | + + + | Ethnic Group | Not or | + + + Author + + + | Author | [facility] | + + + | Organization | [facility] | + + + | Address | Unknown | + + + | Phone | Unavailable | + + + Support + + + + + | Name | Relationship | Address | Phone | + + + + + | Mary Jane Thompson | ECON | [address] | | | | | [place] | | | | | [address] | | + + + + + | Hansel Thompson | ECON | Unknown | | + + + + + | Brittany Thompson | ECON | Unknown | | + + + + + Care Team Providers + +------+ + | Care Banner Painter Name | Role | Phone | [...] | | | [address] | [facility] | | | | | [address] | [place], [place] | | | | | Mailcode: PV01 | [address] | | | | | [facility] | [phone] | | | | | [place], [place] | | | | | | [address] | | | | | | [phone] | | | +--------+ + + + [...] [address] | [place] | [phone] | | [place] | | | | [...] - | | | | | | [place] | | + + + + + [...] - | [address] | [place], [place] | [phone] | | [place] | | | | [...] [address] | [place] | [phone] | | [place] | | | | + + + + + documented in this encounter Visit Diagnoses + + | Diagnosis | + + | 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
--- OUTSIDE RECORDS SUMMARY | ~2019-07-09 | XMS | Encounter Summary ---
Demographics + + + | Address | [address] | | | [place] [address] | + + + | Home Phone | | + + + | Preferred Language | Unknown | + + + | Marital Status | | + + + | Presybeterian Affiliation | MET | + + + | Race | White | + + + | Ethnic Group | Not or | + + + Author + + + | Author | [facility] | + + + | Organization | [facility] | + + + | Address | Unknown | + + + | Phone | Unavailable | + + + Support + + + + + | Name | Relationship | Address | Phone | + + + + + | Mary Jane Thompson | ECON | [address] | | | | | [place] | | | | | [address] | | + + + + + | Hansel Thompson | ECON | Unknown | | + + + + + | Brittany Thompson | ECON | Unknown | | + + + + + Care Team Providers + +------+ + | Care Patient Registration Specialist Name | Role | Phone | + +------+ + | Alex Hernandez MD | PCP | | + +------+ + Encounter Details +--------+ + + + + | Date | Type | Department | Care Team | Description | +--------+ + + + + | 06/24/ | Precision Lens Technician | Otolaryngology | Maritza Phelan, | | | 2012 | | Thyroid Services at | MD [address] | | | | | [address] | [facility] | | | | | [address] | [place], [place] | | | | | Mailcode: PV01 | [address] | | | | | [facility] | [phone] | | | | | [place], [place] | | | | | | [address] | | | | | | [phone] | | | +--------+ + + + [...] [address] | [place], [place] | [phone] | | [facility] | | | | [...] | | | (LAB) | | | [facility] | | + +---------+ + + + [...] [address] | [place] | [phone] | | [place] | | | | [...] + + | [facility] - | [address] | [place] | [phone] | | [place] | | | | [...] + + | [facility] - | [address] | [place] | [phone] | | [place] | | | | + + + + + documented in this encounter Visit Diagnoses Not on filedocumented in this encounter"
--- OUTSIDE RECORDS SUMMARY | ~2019-07-09 | XMS | Encounter Summary ---
Demographics + + + | Address | [address] | | | [place] [address] | + + + | Home Phone | | + + + | Preferred Language | Unknown | + + + | Marital Status | | + + + | Mandaeism Affiliation | MET | + + + | Race | White | + + + | Ethnic Group | Not or | + + + Author + + + | Author | [facility] | + + + | Organization | [facility] | + + + | Address | Unknown | + + + | Phone | Unavailable | + + + Support + + + + + | Name | Relationship | Address | Phone | + + + + + | Mary Jane Thompson | ECON | [address] | | | | | [place] | | | | | [address] | | + + + + + | Hansel Shabazzrick | ECON | Unknown | | + + + + + | Brittany Thompson | ECON | Unknown | | + + + + + Care Team Providers + +------+ + | Care Returner Name | Role | Phone | + [...] +--------+--------+ + + + + Encounter Details +--------+ + + + + | Date | Type | Department | Care Team | Description | +--------+ + + + + | 05/28/ | Anesthesia | 4N INTRA OP 3161 | Flor Ruiz | | | 2012 | Event | LEATHA Carmichael MD [address] | | | | | [place] | [facility] | | | | | Ambulatory Surgery | [place], [place] | | | | | Admitting Desk | [address] | | | | | Located on the [facility] | [phone] | | | | | floor, Room [facility] | | | | | | [place], [place] | | | | | | [address] | | | +--------+ + + + + Anesthesia Record + + + + + | Procedure Name | Responsible | Anesthesia Start | Anesthesia Stop Time | | | Anesthesiologist | Time | | + + + + + | TOTAL | Flor Amol Ruiz, | 05/28/13 1100 | 05/28/13 1408 | [...] | | | 0 | | reviewed, PARQ held, anesthetic plan made or approved by [...] Quick Note | 30 minute lunch break Isaak OIL EXPLORATION ENGINEER | | | 2 | | | [...] | Total | + + + | dexamethasone | 4 mg | + + + | PHENYLephrine | 300 mcg | + + + | midazolam | 2 mg | + + + | fentaNYL | 350 mcg | + + + | lidocaine 2% | 40 mg | + + + | propofol | 200 mg | + + + | succinylcholine | 120 mg | + + + | ePHEDrine | 15 mg | + + + | vasopressin | 3 Units | + + + | metoprolol | 5 mg | + + + | ondansetron | 4 mg | + + + | lactated ringers IV | 1,600 mL | + + + + + | Name | + + | Insp Theodore | + + | Et Theodore | + + | Insp Sevo | + + | Et Sevo | + + | O2 Flow Rate (Total Liters) | + + | Air Flow rate (L/min) | + + + + | No blood administrations on file. | + + +--------+ + + + | Type | Details | Placement | Removal | +--------+ + + + | RETIRE | 05/28/13; 0921; 05/29/13; 1330; | 05/28/13 09 by | 05/29/13 1330 by | | [...] in this encounter Administered Medications + +--------+ +------+------+------+ | Medication Order | MAR | Action | Dose | Rate | Site | | | Action | Date | | | | + +--------+ +------+------+------+ | dexamethasone (DECADRON) | Given | 05/28/20 | 4 mg | | | | injection intravenous, | | 13 11:16 | | | | | INTRAPROCEDURE PRN, Starting Wed | | AM PST | | | | | 05/28/13 at 1116, Until Wed | | | | | | | 05/28/13 at 1405 | | | | | | + +--------+ +------+------+------+ +---+---+ | | | +---+---+ + +-------+ +-------+---+---+ | ePHEDrine injection | Given | 05/28/20 | 10 mg | | | | intravenous, INTRAPROCEDURE PRN, | | 13 11:25 | | | | | Starting Sun05/28/13 at 1125, | | AM PST | | | | | Until Sun05/28/13 at 1405 | | | | | | + +-------+ +-------+---+---+ +-------+ +------+---+---+ | Given | 05/28/20 | 5 mg | | | | | 13 11:21 | | | | | | AM PST | | | | +-------+ +------+---+---+ +---+---+ | | | +---+---+ + +-------+ +--------+---+---+ | fentaNYL citrate (PF) | Given | 05/28/20 | 50 mcg | | | | (SUBLIMAZE) injection | | 13 1:51 | | | | | INTRAPROCEDURE PRN, Starting Sun | | PM PST | | | | | 05/28/13 at 1104, Until Wed | | | | | | | 05/28/13 at 1405, sedation | | | | | | + +-------+ +--------+---+---+ +-------+ +--------+---+---+ | Given | 05/28/20 | 50 mcg | | | | | 13 12:46 | | | | | | PM PST | | | | +-------+ +--------+---+---+ | Given | 05/28/20 | 50 mcg | | | | | 13 11:45 | | | | | | AM PST | | | | +-------+ +--------+---+---+ [...] | | +---+---+ + +-------+ +-------+---+---+ | lidocaine PF (XYLOCAINE MPF) 20 | Given | 05/28/20 | 40 mg | | | | mg/mL (2 %) injection | | 13 11:05 | | | | | INTRAPROCEDURE PRN, Starting Wed | | AM PST | | | | | 05/28/13 at 1105, Until Wed | | | | | | | 05/28/13 at 1405 | | | | | | + +-------+ +-------+---+---+ +---+---+ | | | +---+---+ + +-------+ +--------+---+---+ | metoprolol (LOPRESSOR) | Given | 05/28/20 | 2.5 mg | | | | injection intravenous, | | 13 12:46 | | | | | INTRAPROCEDURE PRN, Starting Wed | | PM PST | | | | | 05/28/13 at 1243, Until Wed | | | | | | | 05/28/13 at 1405 | | | | | | + +-------+ +--------+---+---+ +-------+ +--------+---+---+ | Given | 05/28/20 | 2.5 mg | | | | | 13 12:43 | | | | | | PM PST | | | | +-------+ +--------+---+---+ +---+---+ | | | +---+---+ + +-------+ +------+---+---+ | midazolam (VERSED) injection | Given | 05/28/20 | 2 mg | | | | INTRAPROCEDURE PRN, Starting Wed | | 13 11:00 | | | | | 05/28/13 at 1100, Until Wed | | AM PST | | | | | 05/28/13 at 1405, sedation | | | | | | + +-------+ +------+---+---+ +---+---+ | | | +---+---+ + +-------+ +------+---+---+ | ondansetron (ZOFRAN) injection | Given | 05/28/20 | 4 mg | | | | INTRAPROCEDURE PRN, Starting Sun | | 13 1:39 | | | | | 05/28/13 at 1339, Until Wed | | PM PST | | | | | 05/28/13 at 1405 | | | | | | + +-------+ +------+---+---+ +---+---+ | | | +---+---+ + +-------+ +---------+---+---+ | phenylePHrine 100 mcg/mL | Given | 05/28/20 | 100 mcg | | | | injection (OR syringe) | | 13 11:25 | | | | | intravenous, INTRAPROCEDURE PRN, | | AM PST | | | | | Starting Sun05/28/13 at 1119, | | | | | | | Until Sun05/28/13 at 1405 | | | | | | + +-------+ +---------+---+---+ +-------+ +---------+---+---+ | Given | 05/28/20 | 100 mcg | | | | | 13 11:21 | | | | | | AM PST | | | | +-------+ +---------+---+---+ | Given | 05/28/20 | 100 mcg | | | | | 13 11:19 | | | | | | AM PST | | | | +-------+ +---------+---+---+ +---+---+ | | | +---+---+ + +-------+ +-------+---+---+ | propofol INTRAPROCEDURE PRN, | Given | 05/28/20 | 20 mg | | | | Starting Sun05/28/13 at 1107, | | 13 11:34 | | | | | Until Sun05/28/13 at 1405 | | AM PST | | | | + +-------+ +-------+---+---+ +-------+ +--------+---+---+ | Given | 05/28/20 | 180 mg | | | | | 13 11:07 | | | | | | AM PST | | | | +-------+ +--------+---+---+ +---+---+ | | | +---+---+ + +-------+ +--------+---+---+ | SUCCINYLCHOLINE CHLORIDE 20 | Given | 05/28/20 | 120 mg | | | | MG/ML INJ (PROSED/RSI) | | 13 11:07 | | | | | INTRAPROCEDURE PRN, Starting Wed | | AM PST | | | | | 05/28/13 at 1107, Until Wed | | | | | | | 05/28/13 at 1405, Neuromuscular | | | | | | | block | | | | | | + +-------+ +--------+---+---+ +---+---+ | | | +---+---+ + +-------+ +---------+---+---+ | vasopressin (PITRESSIN) | Given | 05/28/20 | 1 Units | | | | injection INTRAPROCEDURE PRN, | | 13 12:00 | | | | | Starting 05/28/13 at 1127, | | PM PST | | | | | Until 05/28/13 at 1405 | | | | | | + +-------+ +---------+---+---+ +-------+ +---------+---+---+ | Given | 05/28/20 | 1 Units | | | | | 13 11:50 | | | | | | AM PST | | | | +-------+ +---------+---+---+ | Given | 05/28/20 | 1 Units | | | | | 13 11:27 | | | | | | AM PST | | | | +-------+ +---------+---+---+ +---+---+ | | | +---+---+ documented in this encounter"
--- OUTSIDE RECORDS SUMMARY | ~2019-07-09 | XMS | Encounter Summary ---
Demographics + + + | Address | [address] | | | [place] [address] | + + + | Home Phone | | + + + | Preferred Language | Unknown | + + + | Marital Status | | + + + | Caodaism Affiliation | 1073 | + + + | Race | Unknown | + + + | Ethnic Group | Unknown | + + + Author + + + | Author | [facility] | | | and [place]ana | + + + | Organization | [facility] | | | and [...] [place] | | | | | [address] | | + + + + + | Dm Thompson | ECON | Unknown | | + + + + + Care Team Providers + +------+ + | Care Composite Boat Builder Name | Role | Phone | + [...] | | | | | [address] | [place], [place] | | | | | [place], [place] | [address] | | | | | [address] | | | | | | [phone] | Boston Alexander | | | | | | II, MD [address] | | | | | | [address] [place] | | | | | | [place] [address] | | | | | | | [...] +----+---+ + + | | 1 | Thornton | | | | 4 | 43-degrees [...] +----+---+ + + | | 1 | [place] off | | | | 5 | [...] 02/10/17 1100 by | | eral | [id number] catheter system; | Bea Hartley RN | [...]
--- OUTSIDE RECORDS SUMMARY | ~2019-07-09 | XMS | Encounter Summary ---
Demographics + + + | Address | [address] | | | [place] [address] | + + + | Home Phone | | + + + | Preferred Language | Unknown | + + + | Marital Status | | + + + | Congregational Affiliation | MET | + + + | Race | White | + + + | Ethnic Group | Not or | + + + Author + + + | Author | [facility] | + + + | Organization | [facility] | + + + | Address | Unknown | + + + | Phone | Unavailable | + + + Support + + + + + | Name | Relationship | Address | Phone | + + + + + | Mary Jane Thompson | ECON | [address] | | | | | [place] | | | | | [address] | | + + + + + | Hansel Shabazzrick | ECON | Unknown | | + + + + + | Brittany Thompson | ECON | Unknown | | + + + + + Care Team Providers + +------+ + | Care Chemical Detection Expert Name | Role | Phone | + [...] + + + + | 05/28/ | Hospital | [facility] [address] | Maritza Phelan, | | | 2012 - | Encounter | [address] | [address] [facility] | | | | | [place], | [address] | | | 05/29/ | | [place] [address] | [place], [place] | | | 2012 | | [phone] | [address] | | | | | | [phone] | | | | | | | [...] daily as needed. fluticasone 50 mcg/actuation Nasal [place], Suspension Instill 2 sprays into each nostril [...] Have your referring physician (primary care or slate handler) check a TSH level in abo ut 6 - 8weeks. If you experience progressive fatigue before the 6-8 week period, have your d octor check the TSH level sooner. Special Instructions: Do not take Aspirin or nonsteroidal anti-inflammatory pain medications such as Motrim, Advi l, etc for one week. You may begin to sing in 2-3 days, please start slowly. Call: and page ENT resident continuum of care manager if you have any of the following: [...] Vital Signs at discharge: BP: 152/90 mmHg (05/29/13 0901) Pulse: 86 (05/29/13900) Resp: 16 (05/29/13900) Weight: [...] a visit in 3 weeks. Contact information [facility] [address] [facility] [address] POST op PTH 82.7 POD#1 Ca2+ 9.1, MG+ 1.7 Vitals on discharge: Ht 1.778 m (5' 10"), Wt 89.812 kg (198 lb), BP 152/90, Pulse 86, [place] rature 37 C (98.6 F), RR 16, [...] be sent through Care Everywhere.OXYCODONE (ENGL ELIZABETH)LEVOTHYROXINE (CYMRO)THYROID SURGERY : POSTOP (CYMRO)docusatedocumented in this enco unter Medications at Time [...] | as needed. | | 0 | // | | | mg oral tablet | [...] as | | | | | | [place], Suspension | needed. | | | | [...] and oxycodone for pain Home meds restarted Zynepjeqrdxkg063 mcg daily Will replace Mg Anticipate discharge today This patient was seen and examined on ENT rounds, and our team agrees with this assessment and plan. JUNO MONTENEGRO MD Otolaryngology Head and Neck Surgery PGY2 pager [phone] Willy Rodriguez M D - 05/28/2013 9:40 PM PST [...] [facility] | [address] | [place] [address] | | | SERVICES, CORE | PARK [...] [facility] | [address] | [place] [address] | | | SERVICES, CORE | ELISA [...] + + + | Test performed by: [facility] | [facility] | | [facility] [address] [place], [place] | REFERENCE LAB | | [address] Corrected Collection Date from 05/27/13 | | + + + + + + + + | Performing | Address | City/State/Zipcode | Phone Number | | Organization | | | | + + + + + | [facility] | | | | + + + + + | [facility] | see below | | [...] | | | | | | (pT): xY1iDhrjajnd Lymph | | | | | | Nodes (pN): | | | | | | qU9Gfarbz of regional | | | | | [...] Davila, | | | | | | M.D./Surgical Pathology | | | | | | FellowChristian P. 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 | + + documented in this [...] | | | | First dose on [facility] 05/29/13 at | | AM PST [...] | | | EVENING, First dose on Wed | | PM PST | | [...] | dextrose 5%-NaCl 0.45%-KCl 20 | New | 05/28/20 | 100 | 100 | [...] 9:08 | | | | | on 05/28/13 at 1630, Until | | AM PST [...] | NEEDED, Starting Sun05/28/13 at | | AM PST | | | | | 1631, Until Sun05/29/13 at 1945, | | | | | | | anxiety | | | | | | + +-------+ +------+---+---+ +---+---+ | | | +---+---+ + +-------+ +--------+---+---+ | magnesium oxide (MAG-OX) tablet | Given | 05/29/20 | 400 mg | | | | 400 mg 400 mg, oral, ONCE, 1 | | 13 9:07 | | | | | dose, [facility] 05/29/13 at 0900 | | AM [...] | NEEDED, Starting 05/28/13 at | | | | | | | 1627, Until [facility] 05/29/13 at 1945, | | | [...]
--- OUTSIDE RECORDS SUMMARY | ~2019-07-09 | XMS | Encounter Summary ---
Demographics + + + | Address | [address] | | | [place] [address] | + + + | Home Phone | | + + + | Preferred Language | Unknown | + + + | Marital Status | | + + + | Taoism Affiliation | MET | + + + | Race | White | + + + | Ethnic Group | Not or | + + + Author + + + | Author | [facility] | + + + | Organization | [facility] | + + + | Address | Unknown | + + + | Phone | Unavailable | + + + Support + + + + + | Name | Relationship | Address | Phone | + + + + + | Mary Jane Thompson | ECON | [address] | | | | | [place] | | | | | [address] | | + + + + + | Hansel Thompson | ECON | Unknown | | + + + + + | Brittany Thompson | ECON | Unknown | | + + + + + Care Team Providers + +------+ + | Care Business Data Analyst Name | Role | Phone | + +------+ + | Alex Hernandez MD | PCP | | + +------+ + Encounter Details +--------+ + + + + | Date | Type | Department | Care Team | Description | +--------+ + + + + | 12/18/ | Documentati | Health Information | Other, Faculty | | | 2019 | on | Services [address] | [phone] | | | | | [facility] | | | | | | Mailcode: [id number] | | | | | | [facility] | | | | | | [place], [place] | | | | | | [address] | | | | | | [phone] | | | +--------+ + + + [...]
--- OUTSIDE RECORDS SUMMARY | ~2019-07-09 | XMS | Encounter Summary ---
Demographics + + + | Address | [address] | | | [place] [address] | + + + | Home Phone | | + + + | Preferred Language | Unknown | + + + | Marital Status | | + + + | Confucianist Affiliation | MET | + + + | Race | White | + + + | Ethnic Group | Not or | + + + Author + + + | Author | [facility] | + + + | Organization | [facility] | + + + | Address | Unknown | + + + | Phone | Unavailable | + + + Support + + + + + | Name | Relationship | Address | Phone | + + + + + | Mary Jane Thompson | ECON | [address] | | | | | [place] | | | | | [address] | | + + + + + | Hansel Thompson | ECON | Unknown | | + + + + + | Brittany Thompson | ECON | Unknown | | + + + + + Care Team Providers + +------+ + | Care Senior Support Analyst Name | Role | Phone | + +------+ + | Alex Hernandez MD | PCP | | + +------+ + Reason for Visit + + + | Reason | Comments | + + + | Lab Results | | + + + Encounter Details +--------+ + + + + | Date | Type | Department | Care Team | Description | +--------+ + + + + | 06/05/ | Telephone | Otolaryngology | Maritza Phelan, | Lab Results | | 2012 | | Thyroid Services at | MD [address] | | | | | [address] | [address] | | | | | [address] | [place], [place] | | | | | Mailcode: [id number] | [address] | | | | | [facility] | [phone] | | | | | [place], [place] | | | | | | [address] | | | | | | [phone] | | | +--------+ + + + [...]
--- OUTSIDE RECORDS SUMMARY | ~2019-07-09 | XMS | Encounter Summary ---
Demographics + + + | Address | [address] | | | [place] [address] | + + + | Home Phone | | + + + | Preferred Language | Unknown | + + + | Marital Status | | + + + | Hinduism Affiliation | MET | + + + | Race | White | + + + | Ethnic Group | Not or | + + + Author + + + | Author | [facility] | + + + | Organization | [facility] | + + + | Address | Unknown | + + + | Phone | Unavailable | + + + Support + + + + + | Name | Relationship | Address | Phone | + + + + + | Mary Jane Thompson | ECON | [address] | | | | | [place] | | | | | [address] | | + + + + + | Hansel Thompson | ECON | Unknown | | + + + + + | Brittany Thompson | ECON | Unknown | | + + + + + Care Team Providers + +------+ + | Care Construction Stonemason Name | Role | Phone | + [...] evaluation | | 2012 | cheduled | [facility] at | | | | | | [address] 4th Floor | | | | | | Stay [address] | | | | | | [address] | | | | | | Mailcode: [id number] | | | | | | [facility] | | | | | | [address] [place], [place] | | | | | | [address] | | | | | | [phone] | | | +--------+ + + + [...] Note | 30 minute lunch break JBessey CARCASS SPLITTER | | | 2 | | | [...] perfume, lotions or powder. Remove any nail georgian from at least one fingernail. Do not [...] Surgery Check in Locations Day Stay Unit [place] [place], fourth floor Room 4515 Surgery Check in Time: Someone from your surgeon's office or [facility] will provide you with information regarding your [...] it is after office hours, call the [facility] gasser machine operator at [phone] and ask them to page your doc tor. documented in this encounter Plan of Treatment Not on filedocumented as of this encounter Visit Diagnoses Not on filedocumented in this encounter"
--- OUTSIDE RECORDS SUMMARY | ~2019-07-09 | XMS | Encounter Summary ---
Demographics + + + | Address | [address] | | | [place] [address] | + + + | Home Phone | | + + + | Preferred Language | Unknown | + + + | Marital Status | | + + + | Pentecostal Affiliation | 1073 | + + + | Race | Unknown | + + + | Ethnic Group | Unknown | + + + Author + + + | Author | [facility] | | | and [place] | + + + | Organization | [facility] | | | and [...] [place] | | | | | [address] | | + + + + + | Dm Thompson | ECON | Unknown | | + + + + + Care Team Providers + +------+ + | Care Vascular Surgeon Name | Role | Phone | + +------+ + PCP | Unavailable | + +------+ + Encounter Details +--------+ + + + + | Date | Type | Department | Care Team | Description | +--------+ + + + + | 10/12/ | Hospital | [facility] | | | | 2009 | Encounter | [facility] | | | | | | [address] | | | | | | [place] | | | | | | [address] | | | | | | [phone] | | | +--------+ + + + [...]
--- OUTSIDE RECORDS SUMMARY | ~2019-07-09 | XMS | Encounter Summary ---
Demographics + + + | Address | [address] | | | [place] [address] | + + + | Home Phone | | + + + | Preferred Language | Unknown | + + + | Marital Status | | + + + | Sikh Affiliation | MET | + + + | Race | White | + + + | Ethnic Group | Not or | + + + Author + + + | Author | [facility] | + + + | Organization | [facility] | + + + | [...] [place] | | | | | [address] | | + + + + + | Hansel Jay | ECON | Unknown | | + + + + + | Brittany Thompson | ECON | Unknown | | + + + + + Care Team Providers + +------+ + | Care Glass Ribbon Machine Operator Assistant Name | Role | Phone | + [...] MD | | | | | | [place] | [address] [facility] | | | | | | Clinic [address] | [facility] | | | | | | [address]ena [place] | [address], | | | | | | [place], [place] | [place] | | | | | | [address] | [address] | | | | | | Phone: | Phone: | | | | | | [phone] | [phone] | | | | | | Fax: | Fax: | | | | | | [phone] | [phone] | +--------+--------+ + + + + Encounter [...] | | | | [address] | [place], [place] | uncertain behavior | | | | Mailcode: PV01 | [address] | of thyroid gland; | | | | [facility] | [phone] | Nephrolithiasis | | | | [place], [place] | | | | | | [address] | | | | | | [phone] | | | +--------+---------+ + + + [...] Latest Range: 0.70-1.30 mg/dL 1.15 EGFR - CITIZ[place] Latest Range: >60 mL/min >60 EGFR NON -[place]IZ[place] Latest Range: >60 mL/min >60 GLUCOSE, PLASMA [...] wants t otal thyroidectomy. The need for fpc thyroid hormone replacement was also discussed. Written [...] 1:26 PM PDT . PATIENT: Diamante Thompson [facility] MR#: [id number] DATE OF VISIT: 04/24/2013 REFERRING PROVIDER: Latha Tejeda MD PRIMARY CARE PROVIDER: Cynthia Hernandez MD CHIEF COMPLAINT: Thyroid nodule HPI: Diamante Thompson is a 73 y.o. male who was referred to the [facility]- Thyroid and Parathyro id Center by Dr. [...] mouth once daily. 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 Ultrasound 03/11/2013 @ [facility] - In Impax Right lobe is 5.2 [...] undes irable scar. The potential need for acid changer thyroid hormone replacement was also discusse d. Written information summarizing these risks was also provided to the patient. All of th e patient's questions were answered and he appeared to fully comprehend my explanations. FU for preoperative appointment, Flexible laryngoscopy done SHARIFA QUINTANA MD Resident, PGY-4 [facility], Dept. of Surgery Pager [phone] documented in this e ncounter Plan of Treatment Not on filedocumented as of this encounter Procedures + +--------+ + + + | Procedure Name | Priori | Date/Time | Associated Diagnosis | Comments | | | ty | | | | + +--------+ + + + | [place] | Routin | 04/24/2013 | Thyroid nodule [...] view image for the detailed interpretation from [facility] results. | CARDIOLOGY | + + + + + | Procedure Note | + + | Interface, Cardiology Results - 04/25/2013 2:52 PM PDT Please click on view image | | for the detailed interpretation from [facility] results. | + + + + + + + | Performing | Address | City/State/Zipcode | Phone Number | | Organization | | | | + + + + + | [facility] | [address] | [place], [place] | | | CARDIOLOGY | [address] | [address] | | + + + + + [...] [facility] | [address] | [place] [address] | | | SERVICES, SPECIAL | PARK [...] [facility] | [address] | [place] [address] | | | SERVICES, CORE | ELISA [...] [facility] | [address] | [place] [address] | | | SERVICES, SPECIAL | PARK [...] | | | LABORATORY | | | CITIZ[place] | | | SERVICES, | | | [...] [facility] | [address] | [place] [address] | | | SERVICES, CORE | ELISA [...]
--- OUTSIDE RECORDS SUMMARY | ~2019-07-09 | XMS | Encounter Summary ---
Demographics + + + | Address | [address] | | | [place] [address] | + + + | Home Phone | | + + + | Preferred Language | Unknown | + + + | Marital Status | | + + + | Orthodox Affiliation | 1073 | + + + | Race | Unknown | + + + | Ethnic Group | Unknown | + + + Author + + + | Author | [facility] | | | and [place] | + + + | Organization | [facility] | | | and [place] [...] [place] | | | | | [address] | | + + + + + | Dm Thompson | ECON | Unknown | | + + + + + Care Team Providers + +------+ + | Care Distance Learning Administrator Name | Role | Phone | + +------+ + | Alex Hernandez MD | PCP | | + +------+ + Encounter Details +--------+ + + + + | Date | Type | Department | Care Team | Description | +--------+ + + + + | 02/09/ | Hospital | [facility] | Heladio Cheney MD | | | 2017 - | Encounter | MED CTR SURGICAL | [address] [facility] | | | | | [address] [place] | [place], [place] | | | 02/10/ | | [place] [address] | [address] | | | 2016 | | [phone] | | | | | | | [...] signed by: Heladio Cheney, 02/10/2017 6:52 [facility] documented in this enc ounter Discharge Instructions [...] T PO QD | | 1 | // | | | (CELEXA) 20 mg | [...] C PO BID | | 3 | 11/24/19 | | | (MICRO-K) 10 mEq CR [...] | | | | | PRE-OP, Starting Sun02/09/17 at | | AM PDT | | [...] | packet 20 mEq 20 mEq, Oral, 2 | | 17 8:11 | [...]
--- OUTSIDE RECORDS SUMMARY | ~2019-07-09 | XMS | Encounter Summary ---
Demographics + + + | Address | [address] | | | [place] [address] | + + + | Home Phone [...] [place] | | | | | [address] | | + + + + + | Hansel Thompson | ECON | Unknown | | + + + + + | Brittany Thompson | ECON | Unknown | | + + + + + Care Team Providers + +------+ + | Care Certified Medical Records Coder Name | Role | Phone | + [...] | | | | [address] | [place], [place] | | | | | Mailcode: PV01 | [address] | | | | | [facility] | [phone] | | | | | [place], [place] | | | | | | [address] | | | | | | [phone] | | | +--------+ + + + [...]
--- OUTSIDE RECORDS SUMMARY | ~2019-07-09 | XMS | Encounter Summary ---
Demographics + + + | Address | [address] | | | [place] [address] | + + + | Home Phone | | + + + | Preferred Language | Unknown | + + + | Marital Status | | + + + | Taoism Affiliation | 1073 | + + + | Race | Unknown | + + + | Ethnic Group | Unknown | + + + Author + + + | Author | [facility] | | | and [place] | + + + | Organization | [facility] | | | and [place] [...] [place] | | | | | [address] | | + + + + + | Dm Thompson | ECON | Unknown | | + + + + + Care Team Providers + +------+ + | Care Workers Compensation Coordinator Name | Role | Phone | + +------+ + | Alex Hernandez MD | PCP | | + +------+ + Encounter Details +--------+---------+ + + + | Date | Type | Department | Care Team | Description | +--------+---------+ + + + | 06/18/ | Surgery | [facility] | Helen Pelayo MD | EGD / COLONOSCOPY | | 2015 | | MED CTR MP INTRA OP | [address] | | | | | [address] | [place], [place] | | | | | [place], [place] | [address] | | | | | [address] | [phone] | | | | | [phone] | | | +--------+---------+ + + + [...] time. An adult must drive you home. 6025-1418 [employer]. [address] [place] [address]. All righ ts reserved. This information is [...] tear in the colon Risks of anesthesia 7604-3166 [employer]. [address] [place] [address], [place] [address]. All righ ts reserved. This information is [...] MEDICAL | PROVATION | | RECORD NUMBER: [id number] REFERRING PROVIDER: Herbie Hernandez | | | [...] | | Helen Pelayo MD 06/18/2015 8:25 [facility] | | + + + [...] MEDICAL | PROVATION | | RECORD NUMBER: [id number] DATE OF PROCEDURE: 06/18/15 | | | [...] organisms are identified | | | immunostain. [facility] FINAL PATHOLOGIC DIAGNOSIS: A. Stomach, | | | biopsy: - Mild chronic superficial gastritis. - Negative for | | | atrophy, intestinal metaplasia or dysplasia. - Negative for | | | Helicobacter pylori. B. Colon, rectosigmoid at 25 cm, polypectomy: | | | - Tubular adenoma. [facility]:C2NR GROSS DESCRIPTION: A. | | | The [...] submitted all in (B1). | | | ja:[facility]:mrs ADDITIONAL NOTES: Immunohistochemical studies were | | | performed on this case with the appropriate negative and positive | | | controls that react as expected. This test was developed and its | | | performance characteristics determined by [employer] It | | | has not been cleared or approved by the U.S. Food and Drug | | | Administration. The FDA has determined that such clearance or | | | approval is not necessary. This test is used for clinical purposes. | | | It should not be regarded as investigational or for research. | | | [employer] is certified under the Clinical Laboratory | | | Improvement Amendments of 1988 (CLIA) as qualified to perform high | | | complexity clinical laboratory testing. PERFORMING LABORATORY: | | | Tissue processing and slide preparation were performed by [employer] | | | [employer], [address] [place] [address] | | | (Stockkeeper: Renny Julien M.D.; CLIA#: [id number]). | | | Professional interpretation was performed by [employer]), | | | [address] [place] [address] (Stockkeeper: | | | Renny Julien M.D.; CLIA#: [id number]). Diagnostician: Deo Hodge | | | Luis [...]
--- OUTSIDE RECORDS SUMMARY | ~2019-07-09 | XMS | Encounter Summary ---
Demographics + + + | Address | [address] | | | [place] [address] | + + + | Home Phone | | + + + | Preferred Language | Unknown | + + + | Marital Status | | + + + | Mu-Ism Affiliation | MET | + + + | Race | White | + + + | Ethnic Group | Not or | + + + Author + + + | Author | [facility] | + + + | Organization | [facility] | + + + | [...] [place] | | | | | [address] | | + + + + + | Hansel Shabazzrick | ECON | Unknown | | + + + + + | Brittany Thompson | ECON | Unknown | | + + + + + Care Team Providers + +------+ + | Care Home Theatre Technician Name | Role | Phone | + [...] 2012 | Event | LEATHA Carmichael MD [address] | | | | | [place] | [facility] | | | | | Ambulatory Surgery | [place], [place] | | | | | Admitting Desk | [address] | | | | | Located on the [facility] | [phone] | | | | | floor, Room [facility] | | | | | | [place], [place] | | | | | | [address] | | | +--------+ + + + [...] Note | 30 minute lunch break Isaak AUTISTIC TEACHER | | | 2 | | | [...]
--- OUTSIDE RECORDS SUMMARY | ~2019-07-09 | XMS | Encounter Summary ---
Demographics + + + | Address | [address] | | | [place] [address] | + + + | Home Phone | | + + + | Preferred Language | Unknown | + + + | Marital Status | | + + + | Sabianism Affiliation | MET | + + + | Race | White | + + + | Ethnic Group | Not or | + + + Author + + + | Author | [facility] | + + + | Organization | [facility] | + + + | [...] [place] | | | | | [address] | | + + + + + | Hansel Thompson | ECON | Unknown | | + + + + + | Brittany Thompson | ECON | Unknown | | + + + + + Care Team Providers + +------+ + | Care Vat Operator Name | Role | Phone | + +------+ + | Alex Hernandez MD | PCP | | + +------+ + Encounter Details +--------+ + + + + | Date | Type | Department | Care Team | Description | +--------+ + + + + | 05/27/ | Hospital | Registration HOV | | | | 2012 | Encounter | [address] | | | | | | [place], | | | | | | [place] [address] | | | +--------+ + + + [...] as | | | | | | [place], [place]pension | needed. | | | | [...] tablets by | 90 | 0 | 05/29/20 | | | immediate release, 5 | [...]
--- OUTSIDE RECORDS SUMMARY | ~2019-07-09 | XMS | Clinical Summary ---
Demographics + + + | Address | [address] | | | [place] [address] | + + + | Home Phone | | + + + | Preferred Language | Unknown | + + + | Marital Status | | + + + | Yazidi Affiliation | 1073 | + + + | Race | Unknown | + + + | Ethnic Group | Unknown | + + + Author + + + | Author | [facility] | | | and [place]ana | + + + | Organization | [facility] | | | and [place] | [...] [place] | | | | | [address] | | + + + + + | Dm Thompson | ECON | Unknown | | + + + + + Care Team Providers + +------+ + | Care Head Paper Tester Name | Role | Phone | + [...] +--------+ +---------+--------+ | MEDICARE | MEDICA | [id number] | | [phone] | | Medica | | | RE | | 005-Pr | 5 | | re | | | PART A | | esent | | | | | | AND B | | | | | | + +--------+ +--------+ +---------+--------+ | [employer] | BANKER | [id number] | | [phone] | | Indemn | [...] | 1940 | [phone] | [place] [address] | | | chuck | | | 6 (Home) | | + +--------+ +--------+ + + Advance Directives + + + + + | Type | Date Recorded | Patient | Explanation | | | | Furniture Assembly Supervisor | | + + + + + | Power of | | | | | Grading Supervisor | | | | + + + [...]
--- OUTSIDE RECORDS SUMMARY | ~2019-07-09 | XMS | Encounter Summary ---
Demographics + + + | Address | [address] | | | [place] [address] | + + + | Home Phone [...] + + + | Author | [facility] | + + + | Organization | [facility] | + + [...] [place] | | | | | [address] | | + + + + + | Hansel Thompson | ECON | Unknown | | + + + + + | Brittany Thompson | ECON | Unknown | | + + + + + Care Team Providers + +------+ + | Care Finisher Merchant Products Name | Role | Phone | + +------+ + | Alex Hernandez MD | PCP | | + +------+ + Encounter Details +--------+------+ + + + | Date | Type | Department | Care Team | Description | +--------+------+ + + + | 04/24/ | Lab | Laboratory, | | Thyroid nodule; | | 2012 | | Specimen Collection | | Nephrolithiasis | | | | at [facility] 3rd Floor | | | | | | [address] | | | | | | [address] [place], [place] | | | | | | [address] | | | | | | [phone] | | | +--------+------+ + + + Social History + +-------+ [...] | + +--------+ + + + | VITAMIN D, | Routin | 04/24/2013 | Nephrolithiasis | Results for this | | 25-HYDROXY, SERUM | e | 2:23 PM | | procedure are in the | | | | PDT | | results section. | + +--------+ + + + | BASIC METABOLIC SET | Routin | 04/24/2013 | Thyroid nodule | Results for this | | (NA, K, CL, TCO2, | e | 2:23 PM | | procedure are in the | | BUN, CR, GLU, CA) | | PDT | | results section. | + +--------+ + + + | PTH, SERUM | Routin | 04/24/2013 | Nephrolithiasis | Results for this | | | e | 2:23 PM | | procedure are in the | | | | PDT | | results section. | + +--------+ + + + | CALCIUM, IONIZED, | Routin | 04/24/2013 | Nephrolithiasis | Results for this | | WHOLE BLOOD | e | 2:23 PM | | procedure are in the | | | | PDT | | results section. | + +--------+ + + + documented in this encounter Results VITAMIN D, 25-HYDROXY, SERUM (04/24/2013 2:23 PM [...] to 20 ng/mL* | SERVICES, | | *(Groves CL et al. Pediatrics 2008; 122:1128-38.) 18 [...] [facility] | [address] | [place] [address] | | | ANA, SPECIAL | [address] | | | | IMM + [...] [facility] | [address] | [place] [address] | | | [address] | [address] | | | + [...] reference range and methodology effective 08/26/12. | [facility] | | | LABORATORY | | | ANA, | | | SPECIAL IMM + | | | COAG | + + + + + + + + | Performing | Address | City/State/Zipcode | Phone Number | | Organization | | | | + + + + + | [facility] | [address] [facility] | [place] [address] | | | SERVICES, SPECIAL | [address] | | | | IMM + [...] | | | LABORATORY | | | [place] | | | SERVICES, | | | [...] | + + + + + | [facility] | [address] | [place] [address] | | | SERVICES, CORE | [address] | | | + + + + + documented in this encounter Visit Diagnoses + + | Diagnosis | + + | Thyroid nodule Nontoxic uninodular goiter | + + | Nephrolithiasis Calculus of kidney | + + documented in this encounter"
--- OUTSIDE RECORDS SUMMARY | ~2019-07-09 | XMS | Encounter Summary ---
Demographics + + + | Address | [address] | | | [place] [address] | + + + | Home Phone | | + + + | Preferred Language | Unknown | + + + | Marital Status | | + + + | Spiritism Affiliation | MET | + + + | Race | White | + + + | Ethnic Group | Not or | + + + Author + + + | Author | [facility] | + + + | Organization | [facility] | + + + | [...] [place] | | | | | [address] | | + + + + + | Hansel Thompson | ECON | Unknown | | + + + + + | Brittany Thompson | ECON | Unknown | | + + + + + Care Team Providers + +------+ + | Care Senior Hardware Engineer Name | Role | Phone | + [...] | | | | | [place], | | | | | | [place] [address] | | | +--------+ + + + [...] as | | | | | | [place], [place] | needed. | | | | [...]
--- OUTSIDE RECORDS SUMMARY | ~2019-07-09 | XMS | Encounter Summary ---
Demographics + + + | Address | [address] | | | [place] [address] | + + + | Home Phone | | + + + | Preferred Language | Unknown | + + + | Marital Status | | + + + | Moravian Affiliation | 1073 | + + + | Race | Unknown | + + + | Ethnic Group | Unknown | + + + Author + + + | Author | [facility] | | | and [place] | + + + | Organization | [facility] | | | and [place] [...] [place] | | | | | [address] | | + + + + + | Dm Thompson | ECON | Unknown | | + + + + + Care Team Providers + +------+ + | Care Reforestation Worker Name | Role | Phone | + +------+ + | Alex Hernandez MD | PCP | | + +------+ + Encounter Details +--------+ + + + + | Date | Type | Department | Care Team | Description | +--------+ + + + + | 06/18/ | Hospital | [facility] | Helen Pelayo MD | | | 2015 | Encounter | MED CTR MP INTRA OP | [address] [facility] | | | | | [address] | [place], [place] | | | | | [place], [place] | [address] | | | | | [address] | [phone] | | | | | [phone] | | | +--------+ + + + [...] time. An adult must drive you home. 2642-2154 [employer]. [address] [place] [address]. All righ ts reserved. This information is [...] tear in the colon Risks of anesthesia 9655-5135 [employer]. [address] [place] [address], [place] [address]. All righ ts reserved. This information is [...] MEDICAL | PROVATION | | RECORD NUMBER: [id number] REFERRING PROVIDER: Herbie Hernandez | | | [...] | | Helen Pelayo MD 06/18/2015 8:25 [facility] | | + + [...] MEDICAL | PROVATION | | RECORD NUMBER: [id number] DATE OF PROCEDURE: 06/18/15 | | | [...] organisms are identified | | | immunostain. [facility] FINAL PATHOLOGIC DIAGNOSIS: A. Stomach, | | | biopsy: - Mild chronic superficial gastritis. - Negative for | | | atrophy, intestinal metaplasia or dysplasia. - Negative for | | | Helicobacter pylori. B. Colon, rectosigmoid at 25 cm, polypectomy: | | | - Tubular adenoma. [facility]:C2NR GROSS DESCRIPTION: A. | | | [...] submitted all in (B1). | | | :[facility]:mrs ADDITIONAL NOTES: Immunohistochemical studies were | | | performed on this case with the appropriate negative and positive | | | controls that react as expected. This test was developed and its | | | performance characteristics determined by [employer]. It | | | has not been cleared or approved by the U.S. Food and Drug | | | Administration. The FDA has determined that such clearance or | | | approval is not necessary. This test is used for clinical purposes. | | | It should not be regarded as investigational or for research. | | | [employer] is certified under the Clinical Laboratory | | | Improvement Amendments of 1988 (CLIA) as qualified to perform high | | | complexity clinical laboratory testing. PERFORMING LABORATORY: | | | Tissue processing and slide preparation were performed by [employer] | | | [employer], [address] [place] [address] | | | (Reference Data Expert: Renny Julien M.D.; CLIA#: [id number]). | | | Professional interpretation was performed by [employer], | | | [address] [place] [address] (Reference Data Expert: | | | Renny Julien M.D.; CLIA#: [id number]). Diagnostician: Deo Hodge | | | Luis E RAMIRES Pathologist Electronically Signed 06/21/2015 | | + + + + +---------+ + + | Performing | Address | City/State/[facility] | Phone Number | | [...]
--- OUTSIDE RECORDS SUMMARY | ~2019-07-09 | XMS | Encounter Summary ---
Demographics + + + | Address | [address] | | | [place] [address] | + + + | Home Phone | | + + + | Preferred Language | Unknown | + + + | Marital Status | | + + + | Buddhism Affiliation | MET | + + + | Race | White | + + + | Ethnic Group | Not or | + + + Author + + + | Author | [facility] | + + + | Organization | [facility] | + + + | Address | Unknown | + + + | Phone | Unavailable | + + + Support + + + + + | Name | Relationship | Address | Phone | + + + + + | Mary Jane Thompson | ECON | [address] | | | | | [place] | | | | | [address] | | + + + + + | Hansel Thompson | ECON | Unknown | | + + + + + | Brittany Thompson | ECON | Unknown | | + + + + + Care Team Providers + +------+ + | Care Director Search Name | Role | Phone | + [...] | Nephrolithiasis | | | | at [facility] 3rd Floor | | | | | | [address] | | | | | | [address] [place], [place] | | | | | | [address] | | | | | | [phone] | | | +--------+------+ + + + [...] [facility] | [address] | [place] [address] | | | ANA, SPECIAL | ELISA [...] [facility] | [address] | [place] [address] | | | [address] | ELISA [...] | + + + + + | [facility] | [address] [facility] | [place] [address] | | | SERVICES, SPECIAL | ELISA [...] | | | LABORATORY | | | [place] | | | SERVICES, | | | [...] | + + + + + | [facility] | [address] | [place] [address] | | | SERVICES, CORE | [address] | | | + + + + + documented in this encounter Visit Diagnoses + + | Diagnosis | + + | Thyroid nodule Nontoxic uninodular goiter | + + | Nephrolithiasis Calculus of kidney | + + documented in this encounter"
--- OUTSIDE RECORDS SUMMARY | ~2019-07-09 | XMS | Encounter Summary ---
Demographics + + + | Address | [address] | | | [place] [address] | + + + | Home Phone | | + + + | Preferred Language | Unknown | + + + | Marital Status | | + + + | Scientology Affiliation | MET | + + + | Race | White | + + + | Ethnic Group | Not or | + + + Author + + + | Author | [facility] | + + + | Organization | [facility] | + + + | Address | Unknown | + + + | Phone | Unavailable | + + + Support + + + + + | Name | Relationship | Address | Phone | + + + + + | Mary Jane Thompson | ECON | [address] | | | | | [place] | | | | | [address] | | + + + + + | Hansel Thompson | ECON | Unknown | | + + + + + | Brittany Thompson | ECON | Unknown | | + + + + + Care Team Providers + +------+ + | Care Hoop Riveting Machine Operator Helper Name | Role | Phone | [...] Atilio | | | | | at [facility] | [facility] | | | | | [address] | [place] [address] | | | | | Loop Mailcode: | | | | | | [id number] [facility] | | | | | | [facility] | | | | | | [place], [place] | | | | | | [address] | | | | | | [phone] | | | +--------+ + + + [...] as | | | | | | Titus, Suspension | needed. | | | | [...] view image for the detailed interpretation from Entitle results. | CARDIOLOGY | + + + [...] DEPT OF | [address] | [place], [place] | | | CARDIOLOGY | [address] | [address] | | + + + + + documented in this encounter Visit Diagnoses Not on filedocumented in this encounter
--- OUTSIDE RECORDS SUMMARY | ~2019-07-09 | XMS | Encounter Summary ---
Demographics + + + | Address | [address] | | | [place] [address] | + + + | Home Phone | | + + + | Preferred Language | Unknown | + + + | Marital Status | | + + + | Sabianist Affiliation | MET | + + + | Race | White | + + + | Ethnic Group | Not or | + + + Author + + + | Author | [facility] | + + + | Organization | [facility] | + + + | Address | Unknown | + + + | Phone | Unavailable | + + + Support + + + + + | Name | Relationship | Address | Phone | + + + + + | Mary Jane Thompson | ECON | [address] | | | | | [place] | | | | | [address] | | + + + + + | Hansel Thompson | ECON | Unknown | | + + + + + | Brittany Thompson | ECON | Unknown | | + + + + + Care Team Providers + +------+ + | Care Ms Sql Server Developer Name | Role | Phone | + [...] 2019 | on | Services [address] | [phone] | | | | | [facility] | | | | | | Mailcode: [id number] | | | | | | [facility] | | | | | | [place], [place] | | | | | | [address] | | | | | | [phone] | | | +--------+ + + + [...]
--- OUTSIDE RECORDS SUMMARY | ~2019-07-09 | XMS | Encounter Summary ---
Demographics + + + | Address | [address] | | | [place] [address] | + + + | Home Phone | | + + + | Preferred Language | Unknown | + + + | Marital Status | | + + + | Scientologist Affiliation | MET | + + + | Race | White | + + + | Ethnic Group | Not or | + + + Author + + + | Author | [facility] | + + + | Organization | [facility] | + + + | [...] [place] | | | | | [address] | | + + + + + | Hansel Shabazzrick | ECON | Unknown | | + + + + + | Brittany Thompson | ECON | Unknown | | + + + + + Care Team Providers + +------+ + | Care Freezer Tunnel Operator Name | Role | Phone | [...] + + | 05/28/ | Hospital | [facility] [address] | Maritza P[place], | | | 2012 - | Encounter | [address] | [address] [facility] | | | | | [place], | [address] | | | 05/29/ | | [place] [address] | [place], [place] | | | 2012 | | [phone] | [address] | | | | | | [phone] | | | | | | | [...] daily as needed. fluticasone 50 mcg/actuation Nasal [place], Suspension Instill 2 sprays into each nostril [...] Have your referring physician (primary care or director of golf) check a TSH level in abo ut [...] start slowly. Call: and page ENT resident radiation protection engineer if you have any of the following: [...] a visit in 3 weeks. Contact information [facility] [address] [facility] [address] POST op PTH 82.7 POD#1 Ca2+ 9.1, MG+ 1.7 Vitals on discharge: Ht 1.778 m (5' 10"), Wt 89.812 kg (198 lb), BP 152/90, Pulse 86, [place] rature 37 C (98.6 F), RR 16, [...] be sent through Care Everywhere.OXYCODONE (ENGL ELIZABETH)LEVOTHYROXINE (COLOMBIAN)THYROID SURGERY : POSTOP (COLOMBIAN)docusatedocumented in this enco unter Medications at Time [...] as | | | | | | [place], Suspension | needed. | | | | [...] and oxycodone for pain Home meds restarted Gdkkwilomwhbe204 mcg daily Will replace Mg Anticipate discharge today This patient was seen and examined on ENT rounds, and our team agrees with this assessment and plan. JUNO MONTENEGRO MD Otolaryngology Head and Neck Surgery PGY2 pager [phone] Willy Rodriguez M D - 05/28/2013 9:40 [...] [facility] | [address] | [place] [address] | | | SERVICES, CORE | PARK [...] [facility] | [address] | [place] [address] | | | SERVICES, CORE | ELISA [...] + + + | Test performed by: [facility] | [facility] | | [facility] [address] [place], [place] | REFERENCE LAB | | [address] Corrected Collection Date from 05/27/13 | | + + + + + + + + | Performing | Address | City/State/Zipcode | Phone Number | | Organization | | | | + + + + + | [facility] | | | | + + + + + | [facility] | see below | [...] | | | | | | (pT): [id number] | | | | | | Nodes (pN): | | | | | | [id number] of regional | | | | | [...] | | | | | | superior [id number], | | | | | | inferior -17, | | | | | | superior left | | | | | | [id number], middle left | | | | | | [id number], inferior | | | | | | [...] + + + + | [facility] | [address] | [place] [address] | | | PATHOLOGY | [address] [...] | | | | First dose on [facility] 05/29/13 at | | AM PST [...] 9:07 | | | | | dose, [facility] 05/29/13 at 0900 | | AM [...] | | | | | 1627, Until [facility] 05/29/13 at 1945, | | | [...]
--- OUTSIDE RECORDS SUMMARY | ~2019-07-09 | XMS | Encounter Summary ---
Demographics + + + | Address | [address] | | | [place] [address] | + + + | Home Phone | | + + + | Preferred Language | Unknown | + + + | Marital Status | | + + + | Lutheran Affiliation | MET | + + + [...] [place] | | | | | [address] | | + + + + + | Hansel Jay | ECON | Unknown | | + + + + + | Brittany Thompson | ECON | Unknown | | + + + + + Care Team Providers + +------+ + | Care Electrocardiograph Operator Name | Role | Phone | [...] | | | | | [place], | | | | | | [place] [address] | | | +--------+ + + + [...] + +--------+ + + + | NON LOW VISION THERAPIST CYTOLOGY | Routin | 10/19/2009 | | Results for this | | | e | | | procedure are in the | | | | | | results section. | + +--------+ + + + documented in this encounter Results NON LOW VISION THERAPIST CYTOLOGY (10/19/2009) + + + + + + | Component | Value | Ref Range | Performed | Pathologist | | | | | At | Signature | + + + + + + | NON-LOW VISION THERAPIST | SOURCE OF SPECIMEN:A | | [facility] [...] | + + + + + | [facility] | [address] | [place] [address] | | | PATHOLOGY | [address] | | | + + + + + documented in this encounter Visit Diagnoses Not on filedocumented in this encounter"
--- OUTSIDE RECORDS SUMMARY | ~2019-07-09 | XMS | Encounter Summary ---
Demographics + + + | Address | [address] | | | [place] [address] | + + + | Home Phone | | + + + | Preferred Language | Unknown | + + + | Marital Status | | + + + | Zoroastrian Affiliation | MET | + + + | Race | White | + + + | Ethnic Group | Not or | + + + Author + + + | Author | [facility] | + + + | Organization | [facility] | + + + | [...] [place] | | | | | [address] | | + + + + + | Hansel Thompson | ECON | Unknown | | + + + + + | Brittany Thompson | ECON | Unknown | | + + + + + Care Team Providers + +------+ + | Care Clothing Supervisor Name | Role | Phone | + [...] | | | [facility] [address] | [facility] | | | | | [address] | [place], [place] | | | | | Mailcode: PV01 | [address] | | | | | [facility] | [phone] | | | | | [place], [place] | | | | | | [address] | | | | | | [phone] | | | +--------+ + + + [...]
--- OUTSIDE RECORDS SUMMARY | ~2019-07-09 | XMS | Encounter Summary ---
Demographics + + + | Address | [address] | | | [place] [address] | + + + | Home Phone | | + + + | Preferred Language | Unknown | + + + | Marital Status | | + + + | Christian Affiliation | MET | + + + | Race | White | + + + | Ethnic Group | Not or | + + + Author + + + | Author | [facility] | + + + | Organization | [facility] | + + + | Address | Unknown | + + + | Phone | Unavailable | + + + Support + + + + + | Name | Relationship | Address | Phone | + + + + + | Mary Jane Thompson | ECON | [address] | | | | | [place] | | | | | [address] | | + + + + + | Hansel Shabazzrick | ECON | Unknown | | + + + + + | Brittany Thompson | ECON | Unknown | | + + + + + Care Team Providers + +------+ + | Care Suit Attendant Name | Role | Phone | + [...] Atilio | THYROIDECTOMY,specim | | | | [facility] | [address] | en sent to pathology | | | | Ambulatory Surgery | [facility] [place] | | | | | Admitting Desk | [address] | | | | | Located on the [facility] | [phone] | | | | | floor, Room [facility] | | | | | | [place], [place] | | | | | | [address] | | | +--------+---------+ + + + [...] daily as needed. fluticasone 50 mcg/actuation Nasal [place], Suspension Instill 2 sprays into each nostril [...] Have your referring physician (primary care or rocket engine tester) check a TSH level in [facility] ut 6 - 8weeks. If you experience progressive fatigue before the 6-8 week period, have your d octor check the TSH level sooner. Special Instructions: Do not take Aspirin or nonsteroidal anti-inflammatory pain medications such as Motrim, Advi l, etc for one week. You may begin to sing in 2-3 days, please start slowly. Call: and page ENT resident montessori preschool teacher if you have any of the following: [...] a visit in 3 weeks. Contact information [facility] [address] [place] [id number] POST op PTH 82.7 POD#1 Ca2+ 9.1, MG+ 1.7 Vitals on discharge: Ht 1.778 m (5' 10"), Wt 89.812 kg (198 lb), BP 152/90, Pulse 86, Center rature 37 C (98.6 F), RR 16, [...] be sent through Care Everywhere.OXYCODONE (ENGL ELIZABETH)LEVOTHYROXINE (MONTENEGRIN)THYROID SURGERY : POSTOP (MONTENEGRIN)docusatedocumented in this enco unter Medications at Time [...] as | | | | | | [place], Suspension | needed. | | | | [...] and oxycodone for pain Home meds restarted Fkocfygtixulg337 mcg daily Will replace Mg Anticipate discharge today This patient was seen and examined on ENT rounds, and our team agrees with this assessment and plan. JUNO MONTENEGRO MD Otolaryngology Head and Neck Surgery PGY2 pager [phone] illy [place] M D - 05/28/2013 9:40 [...] [facility] | [address] | [place] [address] | | | SERVICES, CORE | PARK [...] | + + + + + | [facility] | [address] | [place] [address] | | | SERVICES, CORE | ELISA [...] + + | Test performed by: [facility] | [facility] | | [facility] [address] [place], [place] | REFERENCE LAB | | [address] Corrected Collection Date from 05/27/13 | | + + + + + + + + | Performing | Address | City/State/Zipcode | Phone Number | | Organization | | | | + + + + + | [facility] | | | | + [...] | | | | | | (pT): [id number] Lymph | | | | | | Nodes (pN): | | | | | | [id number] of regional | | | | | [...] | | | | | | superior [id number], | | | | | | inferior [id number], | | | | | | superior left | | | | | | [id number], middle left | | | | | | [id number], inferior | | | | | | [...] | + + + + + | [facility] | [address] | [place] [address] | | | PATHOLOGY | [address] [...] | | | | First dose on [facility] 05/29/13 at | | AM PST | [...] | | | | | 1631, Until [facility] 05/29/13 at 1945, | | | | | | | anxiety | | | | | | + +-------+ +------+---+---+ +---+---+ | | | +---+---+ + +-------+ +--------+---+---+ | magnesium oxide (MAG-OX) tablet | Given | 05/29/20 | 400 mg | | | | 400 mg 400 mg, oral, ONCE, 1 | | 13 9:07 | | | | | dose, [facility] 05/29/13 at 0900 | | AM PST [...] | | | | | 1627, Until [facility] 05/29/13 at 1945, | | | | [...]
--- OUTSIDE RECORDS SUMMARY | ~2019-07-09 | XMS | Clinical Summary ---
Demographics + + + | Address | [address] | | | [place] [address] | + + + | Home Phone | | + + + | Preferred Language | Unknown | + + + | Marital Status | | + + + | Yarsani Affiliation | MET | + + + [...] [place] | | | | | [address] | | + + + + + | Hansel Thompson | ECON | Unknown | | + + + + + | Brittany Thompson | ECON | Unknown | | + + + + + Care Team Providers + +------+ + | Care Hog Counter Name | Role | Phone | + +------+ + | Alex Hernandez MD | PCP | | + +------+ + Source Comments [facility] is fully live on both [facility] and [facility] Allergies No Known Allergies Medications + + [...] | | | | e | | [place], Suspension | needed. | | | | [...] | | | | | | | [address] | | + +--------+ +--------+ + +--------+ [...] | 1940 | [phone] | [place] [address] | | | chuck | | | [address] (Home) | | + +--------+ +--------+ + +
--- OUTSIDE RECORDS SUMMARY | ~2019-07-09 | XMS | Encounter Summary ---
Demographics + + + | Address | [address] | | | [place] [address] | + + + | Home Phone | | + + + | Preferred Language | Unknown | + + + | Marital Status | | + + + | Cheondoism Affiliation | 1073 | + + + | Race | Unknown | + + + | Ethnic Group | Unknown | + + + Author + + + | Author | [facility] | | | and [place] | + + + | Organization | [facility] | | | and [place]ana [...] [place] | | | | | [address] | | + + + + + | Dm Thompson | ECON | Unknown | | + + + + + Care Team Providers + +------+ + | Care Seaming Machine Operator Name | Role | Phone [...] | [facility] | [address] [facility] | | | | | [address] [place] | [place], [place] | | | 02/10/ | | [place] [address] | [address] | | | 2016 | | [phone] | [phone] | | | | | | | [...] signed by: Heladio Cheney, 02/10/2017 6:52 [facility] documented in this enc ounter Discharge Instructions [...]
--- OUTSIDE RECORDS SUMMARY | ~2019-07-09 | XMS | Encounter Summary ---
Demographics + + + | Address | [address] | | | [place] [address] | + + + | Home Phone | | + + + | Preferred Language | Unknown | + + + | Marital Status | | + + + | Catholic Affiliation | MET | + + + [...] [place] | | | | | [address] | | + + + + + | Hansel Jay | ECON | Unknown | | + + + + + | Brittany Thompson | ECON | Unknown | | + + + + + Care Team Providers + +------+ + | Care Journeyman Meat Cutter Name | Role | Phone | + [...] | | | | | [place], | | | | | | [place] [address] | | | +--------+ + + + [...]
[~2019-07-09 13:30] MED LIST: ASPIR 8181 MG PO; CITALOPRAM HBR20 MG PO; HYDROCHLOROTHIA25 MG PO; K-TAB10 MEQ PO; LIPITOR40 MG PO; POTASSIUM CITR10 MEQ PO; PRILOSEC OTC20 MG PO; SYNTHROID175 MCG PO; ZYLOPRIM300 MG PO
== END 2019-07-09 15:07 | disposition home or self-care (01) ==
LOC: ED 13:30
DX: S05.11XA Contusion of eyeball and orbital tissues, right eye, initial encounter (principal); I10 Essential (primary) hypertension; K21.9 Gastro-esophageal reflux disease without esophagitis; Z88.5 Allergy status to narcotic agent; Z79.899 Other long term (current) drug therapy; Z79.82 Long term (current) use of aspirin; W06.XXXA Fall from bed, initial encounter
CPT/HCPCS: 70450; 99283-25

== ENCOUNTER 2020-01-26 07:50 | Day surgery (SDC) | payer MEDICARE, OTHER ==
[~2020-01-26] VITALS: Ht 177.8 cm; Wt 84.4 kg
--- NOTE | ~2020-01-26 | OR ---
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 POSTOPERATIVE DIAGNOSES: 1. 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 2. No evidence of tumor recurrence in left ureter or in bladder. PROCEDURES: 1. Diagnostic cystoscopy with bilateral retrograde pyelograms. 2. Left semi-rigid diagnostic ureteroscopy. ANESTHESIA: MAC. ESTIMATED BLOOD LOSS: None. COMPLICATIONS: None. SPECIMENS: None. DRAINS: None. INDICATIONS FOR PROCEDURE: Mr. 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 He was initially worked up for irritative voiding symptoms, along with microscopic hematuria. He underwent cystoscopy with bilateral retrograde pyelograms, which revealed a filling defect in the distal left ureter, along with multiple small superficial lesions within the bladder. Pathology revealed superficial low-grade cancer in both the bladder and distal left ureter. He was referred to Dr. Lira at that time, who recommended q.6 months surveillance versus any active surgical intervention at this PATIENT NAME: DIAMANTE THOMPSON OPERATIVE REPORT DATE OF : 40 REPORT #: [id number] PHYSICIAN: ADRI BRYANT MD PCP: [place] MARTINEZ MD REPORT IS CONFIDENTIAL AND NOT TO BE RELEASED WITHOUT AUTHORIZATION [facility] [address] [place], [place] [address] Draft time. The patient presents today for his 1st ureteroscopic surveillance since undergoing his initial procedure. The patient denies any gross hematuria or dysuria or any other urinary symptoms at this time. He is currently taking trospium chloride for overactive bladder symptoms. OPERATIVE FINDINGS: 1. On cystoscopy, there was no evidence of any suspicious masses, lesions, or stones. Bilateral ureteral orifices are in their normal anatomic location. I do appreciate a couple of small stellate scars consistent with previous bladder tumor resections. These are well healed and there was no associated erythema with these areas. 2. Bilateral retrograde pyelogram was performed, which revealed no evidence of filling defects or luminal operations in either ureter. The pyelograms revealed no evidence of any calyceal blunting or dilation. 3. Left diagnostic ureteroscopy revealed no evidence of any suspicious masses or lesions within the distal ureter or within the entire left ureter. DESCRIPTION OF PROCEDURE: After informed consent was obtained, the patient was taken back to the operating room. He was transferred from the [facility] to the operating room table, where MAC anesthesia was induced. He was placed in the dorsal lithotomy position and his genitalia were prepped and draped in a standard sterile fashion. Using a 30-degree lens on a 22.5-Greenlandic introducer, rigid cystoscope was inserted through his urethra and into his bladder under direct visualization. Panendoscopic views of the bladder were then obtained. Please see above findings. Attention was turned to the bilateral ureteral orifices. A cone-tipped catheter was used to perform retrograde pyelogram on both sides. Fluoroscopic images were taken during injection of Isovue contrast into both ureters. Please see above findings. I did not see any abnormality on the retrograde pyelograms, nor on the diagnostic cystoscopy. I then removed the cystoscope and inserted a semi-rigid ureteroscope through the urethra and into the patient's bladder. I then cannulated the left ureter with the ureteroscope and a diagnostic ureteroscopy was performed. Please see above findings. I slowly withdrew the ureteroscope from the ureter and out of the patient's bladder. I reinserted the cystoscope and emptied the patient's bladder completely. The procedure was then terminated. The patient tolerated the procedure well without any complication. He will now be transferred to the Postanesthesia Care Unit in stable condition. DISPOSITION: I discussed the details of today's procedure with Mr. Thompson and his and answered all of her questions. I notified him that there is no evidence of any bladder or ureteral tumor recurrence at this time. He will be sent home today with cephalexin 500 mg one tablet p.o. t.i.d. for a total of 5 days along with a few Percocet 5/325, dispense #5 as needed for pain. He will need to return to my office in April of 2020 PATIENT NAME: DIAMANTE THOMPSON OPERATIVE REPORT DATE OF : 40 REPORT #: [id number] PHYSICIAN: ADRI BRYANT MD PCP: [place] MARTINEZ MD REPORT IS CONFIDENTIAL AND NOT TO BE RELEASED WITHOUT AUTHORIZATION [facility] [address] [place], [place] [address] Draft to undergo his next routine surveillance cystoscopy. This will be followed again in 3 months from that time with a repeat diagnostic ureteroscopy. The patient verbalized understanding of the plan of care today. MD RYDER Barnes/OGL /[id number] Copies: ~ PATIENT NAME: DIAMANTE THOMPSON OPERATIVE REPORT DATE OF : 40 REPORT #: [id number] PHYSICIAN: ADRI BRYANT MD PCP: [place] MARTINEZ MD REPORT IS CONFIDENTIAL AND NOT TO BE RELEASED WITHOUT AUTHORIZATION
[~2020-01-26 07:50] MED LIST changes: +CIPRO500 MG PO; +NORCO 7.5-3251 EACH PO; +OXYBUTYNIN CHLOR5 M1 PO; +TROSPIUM CHLORI20 MG PO
[2020-01-26] MEDS ORDERED: COZAAR100 MG PO (08:59)
--- NOTE | 2020-01-26 09:26 | NUR ---
SITTING IN ROOM, 0 REQUEST OR CONCERNS
--- NOTE | 2020-01-26 11:19 | NUR ---
01/26/20 1119 Sheets,Olga 1106 PT ARRIVED TO PACU ON 6L VIA MASK AND RESP EVEN AND UNLABORED. VSS. 1108 PT WAKES EASILY TO VERBAL STIMULI AND DENIES PAIN AND NAUSEA. PT TALKING TO RN. 1111 O2 REMOVED AND HOB INCREASED.
== END 2020-01-26 12:35 | disposition home or self-care (01) ==
LOC: DS 07:50 → OPS 07:50 → DS 08:15 → OPS 08:15
PROVIDERS: Urology
PROC: 0TJ98ZZ Inspection of Ureter, Via Natural or Artificial Opening Endoscopic (ICD-10-PCS; principal; 2020-01-26 08:15)
DX: Z09 Encounter for follow-up examination after completed treatment for conditions other than malignant neoplasm (principal); K21.9 Gastro-esophageal reflux disease without esophagitis; Z85.54 Personal history of malignant neoplasm of ureter; Z85.51 Personal history of malignant neoplasm of bladder; Z79.899 Other long term (current) drug therapy
CPT/HCPCS: 00918; 74420; C1769; J0696; J1885; J2001; J2405; J2704; J3010; J7121; Q9967

== ENCOUNTER 2020-06-05 11:53 | Emergency (ER) | payer MEDICARE, OTHER ==
[~2020-06-05] VITALS: Ht 177.8 cm; Wt 84.4 kg
[~2020-06-05 11:53] MED LIST changes: +COZAAR100 MG PO
[2020-06-05] MEDS ORDERED: CYCLOBENZAPRINE10 MG PO (14:13)
== END 2020-06-05 14:24 | disposition home or self-care (01) ==
LOC: ED 11:53
DX: S13.4XXA Sprain of ligaments of cervical spine, initial encounter (principal); W19.XXXA Unspecified fall, initial encounter; I10 Essential (primary) hypertension; K21.9 Gastro-esophageal reflux disease without esophagitis; Z79.899 Other long term (current) drug therapy
CPT/HCPCS: 72125; 99283-25

== ENCOUNTER 2020-07-26 05:45 | Day surgery (SDC) | payer OTHER ==
--- NOTE | 2020-07-22 15:01 | NUR ---
EKG FAX TO DR BRYANT OFFICE. RECEIVED CALL BACK AND DR BRYANT AND DR ARROYO LOOKED AT IT AND OKAY FOR PATIENT TO HAVE SURGERY ON SUNDAY. THIS WAS CALLED TO ME BY DEMARCO BRYANT MA.
[~2020-07-26] VITALS: Ht 177.8 cm; Wt 86.3 kg
[~2020-07-26 05:45] MED LIST changes: +CYCLOBENZAPRINE10 MG PO
[2020-07-26] MEDS ORDERED: LASIX20 MG PO (06:02)
--- NOTE | 2020-07-26 09:12 | NUR ---
07/26/20 0912 Adela Leavitt 0856- PT ARRIVES TO PACU NONAROUSABLE TO NOXIOUS STIMULI WITH AN OPA IN PLACE. RESP EVEN AND UNLABORED. PT REQUIRES A CHIN LIFT TO MAINTAIN A PATENT AIRWAY. OXYGEN SAT HIGH 90'S TO 100% ON 6L VIA MASK. PT'S CATHETER DRAINING LIGHT RED URINE. DR. BRYANT AWARE. NO NEW ORDERS AT THIS TIME. 0903- PT AROUSING TO NOXIOUS STIMULI. SALLY ALCANTAR, RN INSTRUCTS PT TO OPEN HIS MOUTH TO THE REMOVE THE OPA. PT IS ABLE TO DO THIS AND OPA REMOVED. OXYGEN MASK AT 6L REPLACED. 0907- PT REPORTS NO PAIN OR NAUSEA. PT REMAINS DROWSY AND FALLS BACK TO SLEEP WHEN NOT BEING TALKED TO.
--- NOTE | 2020-07-26 09:24 | NUR ---
PT ALERT, ORIENTED AND SEEMS PREPARED. PT SHARED HIS CONCERNS ABOUT HIS AND HER RECENT HEALTH ISSUES. ALL QUESTIONS ASKED ANSWERED, PT REQUESTED PRAYER. WILL FOLLOW NEEDED
--- NOTE | 2020-07-26 09:31 | NUR ---
PATIENT BACK TO DAYSURGERY FROM PACU. BEDSIDE REPORT FROM MARY TORERS. PATIENT AWAKE AND SIPPING ON ICE WATER. REPORTS NO PAIN OR NAUSEA. SHEFFIELD IN PLACE DRAINING BLOOD TINGED (PINK) URINE. VSS. PROVIDED SNACKS AND ICE WATER. CALL LIGHT WITHIN REACH. NO OTHER NEEDS AT THIS TIME.
--- NOTE | 2020-07-26 11:45 | NUR ---
1030 PT EATING AND DRINKING TOLERATES WELL. COMPLAINING OF BURNING AT TIP OF PENIS EXPLAINED TO HIM THAT IT WAS THE CATH.
--- NOTE | 2020-07-26 11:48 | NUR ---
1100 PT REPORTS BURNING TO PENIS BETTER BUT ALL THE GONE. REPORTS READINESS TO GO HOME. DISCHARGE INSTRUCTIONS GIVEN TO PT HE VOICED UNDERSTANDING
--- NOTE | 2020-07-26 11:53 | NUR ---
1115 EMPTIED 400ML OF BLOOD TINGED URINE FROM CATH BAG
--- NOTE | 2020-07-26 12:09 | OR ---
[facility] [address] [place], [place] [address] Signed DATE OF OPERATION: 07/26/2020 SURGEON: Adri Bryant MD PREOPERATIVE DIAGNOSES: 1. 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 2. Urothelial carcinoma of the bladder. POSTOPERATIVE DIAGNOSES: 1. 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 2. Urothelial carcinoma of the bladder. NAMES OF PROCEDURES: 1. Diagnostic cystoscopy with left retrograde pyelogram. 2. Left diagnostic ureteroscopy with obtainment of left ureteral washings. 3. Bladder biopsy using bipolar loop x3. 4. Insertion of a 20-Dominican two-way indwelling Feng catheter. ANESTHESIA: General LMA. ESTIMATED BLOOD LOSS: Minimal. COMPLICATIONS: None. SPECIMENS: 1. Left ureteral washing. 2. Bladder biopsies obtained from three separate sites: a. Left lateral wall. b. Posterior bladder wall. c. Mid trigone. DRAINS: A 20-Dominican two-way Feng catheter, connected to gravity drainage. INDICATIONS FOR PROCEDURE: Dada is a very pleasant 80-year-old gentleman, who is well known to me. He initially presented to me around a year ago for evaluation of microhematuria and overactive Electronically Signed By: ADRI BRYANT MD 07/26/20 1209 PATIENT NAME: DADA MASSEY OPERATIVE REPORT DATE OF : 40 REPORT #: [id number] PHYSICIAN: ADRI BRYANT MD PCP: [place] MARTINEZ MD REPORT IS CONFIDENTIAL AND NOT TO BE RELEASED WITHOUT AUTHORIZATION [facility] [address] [place], [place] [address] Signed bladder symptoms. He underwent cystoscopy with bilateral retrograde pyelogram, which revealed a filling defect in the distal left ureter. After biopsy of the left ureter, this was determined to be low grade superficial urothelial cell carcinoma of the left ureter. He was sent to Dr. Hansel Lira in [place] where he underwent a 2nd procedure and at that time, he underwent resection of multiple small tumors within the bladder. His recent urine cytology revealed atypical findings. The patient denies any new onset of gross hematuria or flank pain issues. He presents today to undergo surveillance cystoscopy with possible bladder biopsy and diagnostic ureteroscopy with possible biopsy and left ureteral stent insertion. OPERATIVE FINDINGS: 1. On cystoscopy, there was no obvious evidence of any overt bladder masses. However, I do appreciate a subcentimeter plaque-like collection of abnormal appearing cells in the midportion of the trigone. Also, noted on the lateral and posterior bladder flores, a velvety appearance of the bladder wall mucosa. All three areas were biopsied using a bipolar resectoscope. 2. Left retrograde pyelogram revealed no evidence of any filling defects along the entire length of the ureter or within the left renal pelvis. There was also no evidence of any obvious calyceal blunting on the left side. 3. A left ureteral washing was obtained from the left ureter without difficulty. 4. Left diagnostic ureteroscopy was performed which revealed no evidence of any urothelial abnormality within the entire left ureter. 5. Three specimens were obtained from the bladder wall using a resectoscope and a 24-Dominican bipolar loop. These specimens were obtained from the left lateral wall of the bladder, posterior wall, and mid trigone areas. Of all three specimens, the mid trigone area appeared the most suspicious with a plaque-like appearance of cells measuring around 5 mm or so. 6. At the end of the procedure, a 20-Dominican two-way Feng catheter was inserted into the patient's bladder and connected to gravity drainage. DESCRIPTION OF PROCEDURE: After informed consent was obtained, the patient was taken back to the operating room. He was transferred from the [facility] to the operating room table, where general anesthesia was induced. He was placed in the dorsal lithotomy position and his genitalia prepped and draped in a standard sterile fashion. Using a 30-degree lens on a 22.5-Dominican introducer, rigid cystoscope was inserted through his urethra and into his bladder under direct visualization. Prior to insertion of the cystoscope, the patient's urethra was dilated from 18-Dominican to 30-Dominican without difficulty. Once inside the bladder, I performed a thorough diagnostic cystoscopy. Please see above findings. I chose to initially turn my attention to the left ureter. A cone-tipped catheter was advanced to the level of the left ureter and a left retrograde pyelogram was performed. Please see above findings. I then removed the cone-tipped catheter and inserted a semi-rigid Electronically Signed By: ADRI BRYANT MD 07/26/20 1209 PATIENT NAME: DADA MASSEY OPERATIVE REPORT DATE OF : 40 REPORT #: [id number] PHYSICIAN: ADRI BRYANT MD PCP: [place] MARTINEZ MD REPORT IS CONFIDENTIAL AND NOT TO BE RELEASED WITHOUT AUTHORIZATION [facility] [address] [place] [address] Signed ureteroscope. I performed a diagnostic left ureteroscopy, which revealed no evidence of any suspicious masses or lesions throughout the majority of the left ureter. I withdrew the left ureteroscope and made the decision that no ureteral stent placement was necessary. I then turned my attention to a small area of suspicion in the mid trigone. Prior to this, I did obtain left ureteral washings through the left semi-rigid ureteroscope. These were placed in a fixative and sent to pathology for evaluation. I inserted a resectoscope and transurethrally resected these subcentimeter suspicious lesion located in the mid trigone area. There were also a couple of areas of velvety-appearing mucosa that were resected, one on the left lateral wall of bladder and one on the posterior wall of the bladder. All three specimens were placed in separate specimen cup and sent to pathology for evaluation. The biopsy areas were then cauterized using bipolar cautery. Once I was satisfied that hemostasis had been achieved, the resectoscope was then removed. I then inserted a 20-Dominican two-way Feng catheter into the bladder and connected it to gravity drainage after mainly irrigating the catheter a couple of times to ensure placement. The procedure was then terminated. The patient tolerated the procedure well, which went without any complication. The patient will now be transferred to the postanesthesia care unit in stable condition. DISPOSITION: I discussed the details of today's procedure with the patient's and answered all of her questions. I recommended that he take it easy for at least the next week. He will be sent home today with his Feng catheter gravity drainage. He will be scheduled to return to clinic this July at 10 a.m. to undergo a voiding trial/Feng catheter removal. At that time, he will be scheduled to return to clinic in 4 to 6 weeks for his first postoperative visit and to discuss his pathology results. He will be sent home today with cephalexin 500 mg p.o. t.i.d. for a total of 7 days, along with Percocet 7.5/325 dispense #30 as needed for pain. He was also given oxybutynin p.r.n. bladder spasms. MD RYDER Barnes/DEV /[id number] Copies: Electronically Signed By: ADRI BRYANT MD 07/26/20 1209 PATIENT NAME: DADA MASSEY OPERATIVE REPORT DATE OF : 40 REPORT #: [id number] PHYSICIAN: ADRI BRYANT MD PCP: [place] MARTINEZ MD REPORT IS CONFIDENTIAL AND NOT TO BE RELEASED WITHOUT AUTHORIZATION [facility] [address] [facility] [place] [facility] [place], [place] [address] Signed ~ Electronically Signed By: ADRI BRYANT MD 07/26/20 1209 PATIENT NAME: DADA MASSEY OPERATIVE REPORT DATE OF : 40 REPORT #: [id number] PHYSICIAN: ADRI BRYANT MD PCP: [place] MARTINEZ MD REPORT IS CONFIDENTIAL AND NOT TO BE RELEASED WITHOUT AUTHORIZATION
--- NOTE | 2020-08-02 09:02 | PATH ---
[facility] [address] [facility] [place], [place] [address] Signed SPECIMEN(S): A BLADDER LEFT LATERAL WALL SPECIMEN(S): B BLADDER POSTERIOR WALL SPECIMEN(S): C BLADDER MID-TRIGONE SPECIMEN SOURCE: A. BLADDER LEFT LATERAL WALL B. BLADDER POSTERIOR WALL C. BLADDER MID-TRIGONE CLINICAL HISTORY: Left urothelial carcinoma of bladder. FINAL PATHOLOGIC DIAGNOSIS: A. Bladder, left lateral wall, biopsy: - Low-grade atypical urothelial proliferation (see comment). - Negative for stromal invasion. - Negative for muscularis propria. B. Bladder, posterior wall: - Walton muscularis propria and stromal tissue with focal scant mildly atypical urothelium (see comment). C. Bladder, mid trigone: - Urothelium with reactive features. COMMENT: On A, the atypical urothelium is suspicious for emerging/residual low-grade papillary urothelial carcinoma. There is no evidence of stromal invasion on these sections. The history of previous low-grade papillary urothelial carcinoma of the bladder (VS--17) is noted. On B, there is scant urothelium in what is essentially denuded tissue. These features are mildy atypical, but definitive diagnosis cannot be rendered due to the small amount of urothelium present. The corresponding urine cytology (VN-21-1, atypical) is reviewed. As part of the [facility] Astr[employer]ical [employer] Program, the case has been reviewed by a second Pathologist. MONY:JOSEPHINE:annette:C1NR MICROSCOPIC EXAMINATION: Histologic sections of all submitted blocks are examined by light microscopy. These findings, together with the gross examination, support the pathologic diagnosis. Immunostains are performed with appropriate controls and show the following: PATIENT NAME: DADA THOMPSON PATHOLOGY DATE OF : 40 REPORT #: [id number] PHYSICIAN: KENDRA CLARK PCP: [place] MARTINEZ MD REPORT IS CONFIDENTIAL AND NOT TO BE RELEASED WITHOUT AUTHORIZATION [facility] [address] [place], [place] [address] Signed Block A1: - P53: Scattered slightly increased staining of the urothelium in the area of concern. - CK20: Focal full thickness urothelial staining. - CK5: Basal urothelial staining. Block C1: - P53: Negative for significantly increased urothelial staining. - CK20: Negative for significant urothelial staining. - CK5: Diffuse basal urothelial staining. GROSS DESCRIPTION: Three specimens are received in three containers, labeled "Dada Thompson." A. The specimen, labeled "Dada Thompson," and designated on the requisition "biopsy of bladder wall, left lateral wall," is received in formalin and consists of one cage soft tissue fragment(s) that measure 0.7 cm in greatest dimension. The specimen is entirely submitted in cassette (A1). B. The specimen, labeled "Dada Thompson," and designated on the requisition "biopsy of bladder posterior wall," is received in formalin and consists of two cage soft tissue fragment(s) that measure 0.6 and 0.6 cm in greatest dimension. The specimen is entirely submitted in cassette (B1). C. The specimen, labeled "Dada Thompson," and designated on the requisition "bladder biopsy mid-trigone," is received in formalin and consists of three white-cage soft tissue fragment(s) that measure 0.7-1.2 cm in greatest dimension. The specimen is entirely submitted in cassette (C1). FB (under the direct supervision of a pathologist) The Gross Description was prepared using a voice recognition system. The report was reviewed for accuracy; however, sound-alike word errors, addition and/or deletions may occur. If there is any question about this report, please contact Client Services. ADDITIONAL NOTES: Immunohistochemical and/or in situ hybridization studies were performed on this case with the appropriate positive controls that react as expected. This test was developed and its performance characteristics determined by [facility]. It has not been cleared or approved by the U.S. Food and Drug Administration. The FDA has determined that such clearance or approval is not necessary. This test is used for clinical purposes. It should not be regarded PATIENT NAME: DADA THOMPSON PATHOLOGY DATE OF : 40 REPORT #: [id number] PHYSICIAN: KENDRA CLARK PCP: [place] MARTINEZ MD REPORT IS CONFIDENTIAL AND NOT TO BE RELEASED WITHOUT AUTHORIZATION [facility] [address] [place], [place] [address] Signed as investigational or for research. [facility] is certified under the Clinical Laboratory Improvement Amendments of 1988 (CLIA) as qualified to perform high complexity clinical laboratory testing. PERFORMING LABORATORY: The technical component was performed by [facility], [address] [place] [address] (Spanish Lecturer: Shelly John MD; CLIA# [id number]). The professional interpretation was performed by [facility], [facility], [address] [place] [address]. Diagnostician: Jimmy Castanon MD Pathologist Electronically Signed 08/02/2020 Copies: ~ PATIENT NAME: DADA THOMPSON VJ PATHOLOGY DATE OF : 40 REPORT #: [id number] PHYSICIAN: KENDRA CLARK PCP: [place] MARTINEZ MD REPORT IS CONFIDENTIAL AND NOT TO BE RELEASED WITHOUT AUTHORIZATION
== END 2020-07-26 11:35 | disposition home or self-care (01) ==
LOC: DS 05:45
PROVIDERS: ATTEND Urology
PROC: 0TBB8ZX Excision of Bladder, Via Natural or Artificial Opening Endoscopic, Diagnostic (ICD-10-PCS; 2020-07-26)
PROC: 0T9 Urinary System, Drainage (ICD-10-PCS; 2020-07-26)
PROC: BT1FZZZ Fluoroscopy of Left Kidney, Ureter and Bladder (ICD-10-PCS; principal; 2020-07-26 06:45)
DX: C66.2 Malignant neoplasm of left ureter (principal); C67.0 Malignant neoplasm of trigone of bladder; E03.9 Hypothyroidism, unspecified; E78.5 Hyperlipidemia, unspecified; I10 Essential (primary) hypertension; K21.9 Gastro-esophageal reflux disease without esophagitis; N40.0 Benign prostatic hyperplasia without lower urinary tract symptoms; R41.3 Other amnesia; N32.81 Overactive bladder; N20.0 Calculus of kidney
CPT/HCPCS: 00910; 74420; 88112; 88305; C1769; J0690; J1100; J1885; J2001; J2405; J2704; J7121; Q9967

== ENCOUNTER 2021-01-03 07:25 | Day surgery (SDC) | payer OTHER ==
[~2021-01-03] VITALS: Ht 177.8 cm; Wt 98.0 kg
[~2021-01-03 07:25] MED LIST changes: +LASIX20 MG PO; +MINIPRESS5 MG PO; +NAMENDA10 MG PO; +PEPCID40 MG PO; +SEROQUEL25 MG PO
--- NOTE | 2021-01-03 10:52 | NUR ---
01/03/21 1052 Sheets,Olga 1039 PT ARRIVED TO PACU WITH ORAL AIRWAY IN PLACE, JAW THRUST USED TO MAINTAIN AIRWAY. VSS. RESP EVEN AND UNLABORED. 1045 PT HEAD MOVED TO SIDE AND PILLOW REMOVED. PT MAINTAINING OWN AIRWAY WITH AIRWAY IN PLACE.
--- NOTE | 2021-01-03 11:30 | NUR ---
1130 PT ARRIVED A&O, TALKATIVE WITH STAFF, DENIES PAIN OR NEED TO URINATE, NO NAUSEA, WATCHING TV. SNACK AND WATER PROVIDED.
--- NOTE | 2021-01-03 13:56 | NUR ---
CONNECTED WITH PT HE WAS ENTERING HIS RM. PT ALITTLE ANXIOUS, VISITED A MOMENT WITH PT. GAVE ENCOURAGEMENT, SUPPORT AND BLESSING. WILL FOLLOW
--- NOTE | 2021-01-10 09:29 | OR ---
[facility] [address] [place], [place] [address] Signed DATE OF OPERATION: 01/03/2021 SURGEON: Adri Bryant MD PREOPERATIVE DIAGNOSES: 1. History of low-grade urothelial carcinoma of the distal left ureter. 2. History of associated low-grade bladder cancer. 3. Overactive bladder. POSTOPERATIVE DIAGNOSES: 1. History of low-grade urothelial carcinoma of the distal left ureter. 2. History of associated low-grade bladder cancer. 3. Overactive bladder. NAMES OF PROCEDURES: 1. Diagnostic cystoscopy with left retrograde pyelogram. 2. Left diagnostic ureteroscopy. 3. Obtainment of left ureteral washings. 4. Bladder biopsy x3. ANESTHESIA: General. ESTIMATED BLOOD LOSS: Minimal. COMPLICATIONS: None. SPECIMENS: 1. Left ureteral washing. 2. Bladder biopsy x3, located mostly near the left ureteral orifice along with an area of previous resection. DRAINS: None. INDICATIONS FOR PROCEDURE: Mr. Thompson is an 80-year-old gentleman, who is well known to me. He has a history of low-grade urothelial carcinoma of the distal left ureter diagnosed a little over a year Electronically Signed By: ADRI BRYANT MD 01/10/21 0929 PATIENT NAME: DIAMANTE THOMPSON OPERATIVE REPORT DATE OF : 40 REPORT #: [id number] PHYSICIAN: ADRI BRYANT MD PCP: [place] MARTINEZ MD REPORT IS CONFIDENTIAL AND NOT TO BE RELEASED WITHOUT AUTHORIZATION [facility] [address] [place], [place] [address] Signed ago after undergoing a workup for overactive bladder. He is currently taking trospium chloride for his overactive bladder symptoms and his symptoms are stable at this time. He presents today to undergo routine q.6 months surveillance for his low-grade ureteral cancer, including diagnostic ureteroscopy, ureteral washing and possible bladder biopsy. He denies any recent urinary issues, i.e. no gross hematuria or dysuria symptoms. OPERATIVE FINDINGS: 1. On cystoscopy, there is no evidence of any overt bladder masses, lesions, or stones. Bilateral ureteral orifices are in their normal anatomic location effluxing clear urine. 2. Left retrograde pyelogram was performed, which revealed no evidence of any filling defect of the entire ureter or left kidney. There is no evidence of any calyceal blunting or any filling defect within the left renal pelvis. There is however a base minor kink in the distal left ureter that is of likely of no clinical significance. 3. There were two or three diffuse areas of very minor erythema that I chose to biopsy just to rule out any potential possibility of carcinoma in situ and/or other abnormality. One of these areas included an area of previous tumor resection. 4. At the end of the procedure, adequate left ureteral efflux was noted, so the decision was made to not place an indwelling left ureteral stent. 5. Digital rectal examination was performed today, which revealed no evidence of any palpable lesions or discrete nodules. 6. Diagnostic ureteroscopy was performed primarily of the mid to distal left ureter and I did not appreciate any abnormality within the entire extent of the mid to distal left ureter. DESCRIPTION OF PROCEDURE: After informed consent was obtained, the patient was taken back to the operating room. He was transferred from the [facility] to the OR table where general anesthesia was induced. He was placed in dorsal lithotomy position. His genitalia prepped and draped in a standard sterile fashion. Using a 30-degree lens on a 22.5-Maltese introducer, rigid cystoscope was inserted through his urethra into his bladder under direct visualization. Panendoscopic views of bladder were then obtained. Please see above findings. My attention was turned to the left ureteral orifice, which appears patent. An open-ended ureteral catheter was then used to perform a left retrograde pyelogram. Please see above findings. Prior to placement of the dye, the open-ended catheter was also used to perform ureteral washings of the left side. The washing was placed in a specimen cup and sent to pathology for evaluation. Once the retrograde pyelogram was performed, a semi-rigid ureteroscope was inserted through the urethra into his bladder. The ureteroscope was then passed into the mid to distal left ureter. Please see above findings. I was unable to pass into the proximal ureter mostly due to the pelvic brim and the risk of bending the ureteroscope. I repeated a retrograde pyelogram through the ureteroscope, which again revealed no evidence of any filling defects, more abnormalities within the proximal left ureter or within the left renal pelvis. I then Electronically Signed By: ADRI BRYANT MD 01/10/21 0929 PATIENT NAME: DIAMANTE THOMPSON OPERATIVE REPORT DATE OF : 40 REPORT #: [id number] PHYSICIAN: ADRI BRYANT MD PCP: [place] MARTINEZ MD REPORT IS CONFIDENTIAL AND NOT TO BE RELEASED WITHOUT AUTHORIZATION [facility] [address] [place] [address] Signed removed the ureteroscope and was able to appreciate adequate efflux now and at the end of the procedure from the left ureteral orifice. I then turned my attention to a couple of very minor areas within the bladder. These were biopsied using a cold cup forcep and then, the biopsy area was then cauterized using monopolar Bugbee cautery. Overall, I did not see any overt abnormality within the bladder or within the left ureter or kidney. The patient's bladder was then drained and the cystoscope was removed once hemostasis was achieved using the Bugbee cautery. The procedure was then terminated. The patient tolerated the procedure well without complication. He will now be transferred to the postanesthesia care unit in stable condition. DISPOSITION: The patient will be discharged to home later today once he is able to void on his own. I discussed the details of today's procedure with the patient's and we answered all of her questions. She was notified that I do not see any evidence of tumor recurrence either in the kidney, left ureter, or bladder at this time. However, I did take three bladder biopsies to confirm my suspicion that everything appears clear at this time. He will be sent home today with [place] 5/325 dispense #20 as needed for pain along with Cipro 250 mg one tab p.o. b.i.d. for a total of 5 days. He will be scheduled to return to clinic in 6 weeks to discuss his pathology results. MD RYDER Barnes/DEV /[id number] Copies: ~ Electronically Signed By: ADRI BRYANT MD 01/10/21 0929 PATIENT NAME: DIAMANTE THOMPSON OPERATIVE REPORT DATE OF : 40 REPORT #: [id number] PHYSICIAN: ADRI BRYANT MD PCP: [place] MARTINEZ MD REPORT IS CONFIDENTIAL AND NOT TO BE RELEASED WITHOUT AUTHORIZATION
--- NOTE | 2021-01-11 15:16 | PATH ---
[facility] [address] [place], [place] [address] Signed SPECIMEN(S): A TRIGONE, URINARY BLADDER SPECIMEN(S): B POSTERIOR WALL, MEDIAL TO LEFT URETER SPECIMEN(S): C LEFT POSTERIOR WALL SPECIMEN SOURCE: A. TRIGONE, URINARY BLADDER B. POSTERIOR WALL, MEDIAL TO LEFT URETER C. LEFT POSTERIOR WALL CLINICAL HISTORY: Urothelial CA of left distal ureter; malignant neoplasm of lateral wall of urinary bladder; malignant neoplasm of trigone of urinary bladder. FINAL PATHOLOGIC DIAGNOSIS: A. Urinary bladder, trigone, previous resection site, biopsy: - Papillary urothelial atypia, concerning for incipient/residual non-invasive low-grade papillary carcinoma. B. Bladder, posterior wall medial to left ureter, biopsy: - Papillary urothelial atypia, favor dysplasia. C. Bladder, posterior wall, biopsy: - Urothelial atypia, favor dysplasia. COMMENT: As part of [facility] Quality Improvement Program, this case was reviewed by another member of our pathology staff. NAL:cml:C NR MICROSCOPIC EXAMINATION: Histologic sections of all submitted blocks are examined by light microscopy. Regarding speicmen C: Immunohistochemical stains (with appropriately staining controls) were performed. The atypical urothelial shows focal CK20 full-thickeness expression and p53 has weak and patchy expression in the area of interest. These findings, together with the gross examination, support the pathologic diagnosis. GROSS DESCRIPTION: Three specimens are received in three containers, labeled "AK." A. The specimen, labeled "AK, B," and designated on the requisition "previous resection site, trigone urinary bladder," is received in formalin and consists of one cage mucosal tissue fragment PATIENT NAME: DIAMANTE MASSEY PATHOLOGY DATE OF : 40 REPORT #: [id number] PHYSICIAN: KENDRA CLARK PCP: YN MARTINEZ MD REPORT IS CONFIDENTIAL AND NOT TO BE RELEASED WITHOUT AUTHORIZATION [facility] [address] [place], [place] [address] Signed measuring 0.4 x 0.2 x 0.1 cm. Specimen is entirely submitted in cassette A1. B. The specimen, labeled "AK, C," and designated on the requisition "posterior bladder wall medial to left ureter," is received in formalin and consists of one cage mucosal tissue fragment measuring 0.3 x 0.3 x 0.2 cm. Specimen is entirely submitted in cassette B1. C. The specimen, labeled "AK, D," and designated on the requisition "left posterior bladder wall," is received in formalin and consists of one cage mucosal tissue fragment measuring 0.3 x 0.2 x 0.1 cm. Specimen is entirely submitted in cassette C1. Note: Container labeled "A" is left ureteral washings for cytology AT (under the direct supervision of a pathologist) The Gross Description was prepared using a voice recognition system. The report was reviewed for accuracy; however, sound-alike word errors, addition and/or deletions may occur. If there is any question about this report, please contact Client Services. PERFORMING LABORATORY: The technical component was performed by [facility] [address] (Tax Agent: Shelly John MD; CLIA# [id number]). [facility], [address] [place] [address] (IA# [id number]). Diagnostician: Josefina Laguerre MD Pathologist Electronically Signed 01/11/2021 Copies: ~ PATIENT NAME: DIAMANTE MASSEY PATHOLOGY DATE OF : 40 REPORT #: [id number] PHYSICIAN: KENDRA CLARK PCP: [place] MARTINEZ MD REPORT IS CONFIDENTIAL AND NOT TO BE RELEASED WITHOUT AUTHORIZATION
== END 2021-01-03 13:05 | disposition home or self-care (01) ==
LOC: DS 07:25 → OPS 07:25 → DS 09:15 → OPS 13:05
PROVIDERS: ATTEND Urology
PROC: 0TBB8ZX Excision of Bladder, Via Natural or Artificial Opening Endoscopic, Diagnostic (ICD-10-PCS; principal; 2021-01-03 09:15)
PROC: 0TJ98ZZ Inspection of Ureter, Via Natural or Artificial Opening Endoscopic (ICD-10-PCS; 2021-01-03 09:15)
DX: Z08 Encounter for follow-up examination after completed treatment for malignant neoplasm (principal); Z85.51 Personal history of malignant neoplasm of bladder; Z85.54 Personal history of malignant neoplasm of ureter; N32.81 Overactive bladder; E78.5 Hyperlipidemia, unspecified; I10 Essential (primary) hypertension; K21.9 Gastro-esophageal reflux disease without esophagitis; Z96.653 Presence of artificial knee joint, bilateral; Z96.641 Presence of right artificial hip joint; E89.0 Postprocedural hypothyroidism; Z85.850 Personal history of malignant neoplasm of thyroid
CPT/HCPCS: 00918; 74420; 88112; 88305; 88341; 88342; C1769; J0690; J1100; J1885; J2001; J2405; J2704; J7121; Q9967

== ENCOUNTER 2021-10-17 06:55 | Day surgery (SDC) | payer OTHER ==
[~2021-10-17] VITALS: Ht 177.8 cm; Wt 83.4 kg
[~2021-10-17 06:55] MED LIST changes: +ARICEPT10 MG PO; +LIOTHYRONINE SO5 MCG PO; +SILDENAFIL20 MG PO
--- NOTE | 2021-10-17 10:20 | NUR ---
10/17/21 1020 Emily Clement 1006- PT TO PACU IN SUPINE POSITION. EYES CLOSED PT DOES NOT RESPOND TO VERBAL OR TACTILE STIMULI. BREATHING EASY AND UNLABORED. WITH ORAL AIRWAY IN PLACE AND JAW THRUST. SPO2 >95% ON 10 L O2 VIA SIMPLE MASK. 1009- PT RESPONDS TO VERBAL AND TACTILE STIMULI. PT FOLLOWS COMMANDS AND FALLS QUICKLY BACK TO SLEEP. ORAL AIRWAY REMOVED AND O2 TITRATED DOWN TO 6 LPM VIA SIMPLE MASK. BREATHING EASY AND UNLABORED. PT DENIES PAIN AND NAUSEA. 1015- PT REMAINS AWAKE. DENIES PAIN AND NAUSEA. O2 TITRATED DOWN TO ROOM AIR. MD AT BEDSIDE TALKING WITH PATIENT. VSS.
--- NOTE | 2021-10-17 11:09 | NUR ---
1030 PT BACK TO ROOM FROM PACU ALERT AND AWAKE, PT DENIES PAIN OR NAUSEA, PT EATING CRACKERS AND DRINKING WATER TOLERATES WELL. WARM BLANKETS GIVEN, CALL LIGHT WITHIN REACH.
--- NOTE | 2021-10-17 11:45 | NUR ---
1115 PT REPORT HE NEEDS TO VOID HE WAS UP TO SIDE OF BED TO VOID IN URINAL, HE WAS ABLE TO VOID 125ML OF DARK YELLOW URINE. PT REPORTS READINESS TO GO HOME ASKING IF HE CAN GET DRESSED. HIS HELPED HIM GET DRESSED.
--- NOTE | 2021-10-17 11:48 | NUR ---
1130 PT PRESISTANT ABOUT GOING HOME. IV DC'D TIP IN TACT DISCHARGE INSTRUCTIONS GIVEN TO PT AND BOTH VOICED UNDERSTANDING. PT WAS WHEELED OUT TO FRONT DOOR BY RN.
--- NOTE | 2021-10-17 14:56 | OR ---
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 POSTOPERATIVE DIAGNOSES: 1. 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 2. Mild irregularity of the left lateral wall of the bladder requiring bladder biopsy to confirm absence of urothelial carcinoma. PROCEDURES: 1. Diagnostic cystoscopy with bilateral retrograde pyelogram. 2. Cold cup bladder biopsy. ANESTHESIA: General. ESTIMATED BLOOD LOSS: Minimal. COMPLICATIONS: None. SPECIMENS: Cold cup bladder biopsy tissue sent to the pathology lab for evaluation. DRAINS: None. INDICATIONS FOR PROCEDURE: Mr. Thompson is a very pleasant 81-year-old gentleman, who was diagnosed with superficial low-grade bladder cancer as well as cancer of the distal left ureter approximately 2-1/2 years ago. Since that time, he has undergone surveillance cystoscopies in combination with surveillance retrograde pyelogram and diagnostic ureteroscopies as needed. He also has a history of overactive bladder, for which he takes trospium chloride once daily. He presents today to undergo another routine surveillance cystoscopy with bilateral retrograde pyelogram. Electronically Signed By: ADRI BRYANT MD 10/17/21 1456 PATIENT NAME: DIAMANTE THOMPSON OPERATIVE REPORT DATE OF : 40 REPORT #: [id number] PHYSICIAN: ADRI BRYANT MD PCP: [place] MARTINEZ MD REPORT IS CONFIDENTIAL AND NOT TO BE RELEASED WITHOUT AUTHORIZATION [facility] [address], [place] [address] Signed OPERATIVE FINDINGS: On cystoscopy, there was no evidence of any obvious bladder masses; however, there is a mild irregularity and orange discoloration of the left lateral wall that is somewhat worrisome for carcinoma in situ. This area was biopsied using a cold cup biopsy without incident. Bilateral retrograde pyelogram was performed, which revealed no evidence of any filling defects or any other abnormalities within either ureter or renal pelvis on both sides. Overall, the bilateral retrograde pyelograms were completely normal. Based on the results of the retrograde pyelogram, I chose not to perform diagnostic ureteroscopy today as I did not see it was necessary. DESCRIPTION OF PROCEDURE: After informed consent was obtained, the patient was taken back to the operating room. He was transferred from the [facility] to the operating room table, where general anesthesia induced. He was placed in the dorsal lithotomy position. His genitalia prepped and draped in standard sterile fashion. Using a 30-degree lens on a 22.5-Italian introducer, rigid cystoscope was inserted through the urethra and into his bladder under direct visualization. Panendoscopic views of the bladder were then obtained, please see above findings. I then turned my attention to the right ureteral orifice. A cone-tipped catheter was advanced to the level of the right ureteral orifice and a right retrograde pyelogram was performed, please see above findings. I then advanced a cone-tipped catheter into the distal left ureter and again a left retrograde pyelogram was performed, please see above findings. I then took a closer look at the left lateral wall of the bladder and I did notice a minor orange discoloration to the left lateral wall. I did not see any overt evidence of any plaque like disease; however, I did choose to perform a single cold cup biopsy of the left lateral wall to rule out any possible early carcinoma in situ in this area. The cold cup biopsy was performed and then a monopolar Bugbee was used to cauterize the biopsy site. This was performed without difficulty. The patient's bladder was then drained and the cystoscope was removed. The procedure was then terminated. The patient tolerated the procedure well, no complication. He will now be transferred to the Postanesthesia Care Unit in stable condition. DISPOSITION: I discussed the details of today's procedure with the patient's and answered all of her questions. He will be sent home today with Cipro 500 mg p.o. b.i.d. for a total of five days, along with oxycodone 5 mg, dispense #10 as needed for pain. I told the patient's today that I will contact him with the results of his pathology that was obtained today. Otherwise, he was scheduled to see me in six months for another H and P visit in preparation for another diagnostic cystoscopy with bilateral retrograde pyelogram and diagnostic left ureteroscopy with possible biopsy. Electronically Signed By: ADRI BRYANT MD 10/17/21 1456 PATIENT NAME: DIAMANTE THOMPSON OPERATIVE REPORT DATE OF : 40 REPORT #: [id number] PHYSICIAN: ADRI BRYANT MD PCP: [place] MARTINEZ MD REPORT IS CONFIDENTIAL AND NOT TO BE RELEASED WITHOUT AUTHORIZATION [address] [address] Signed Adri Bryant MD AR/MODL /[id number] Copies: ~ Electronically Signed By: ADRI BRYANT MD 10/17/21 1456 PATIENT NAME: DIAMANTE THOMPSON VJ OPERATIVE REPORT DATE OF : 40 REPORT #: [id number] PHYSICIAN: ADRI BRYANT MD PCP: [place] MARTINEZ MD REPORT IS CONFIDENTIAL AND NOT TO BE RELEASED WITHOUT AUTHORIZATION
--- NOTE | 2021-10-19 13:11 | PATH ---
[facility] [address] [place], [place] [address] Signed SPECIMEN(S): A LEFT BLADDER WALL SPECIMEN SOURCE: A. LEFT BLADDER WALL CLINICAL HISTORY: Carcinoma, left distal ureter, malignant neoplasm trigone bladder. OAB. FINAL PATHOLOGIC DIAGNOSIS: Bladder, left wall, biopsy: - Urothelial mucosa with reactive epithelial changes; negative for dysplasia or malignancy. - No muscularis propria identified. BRP:em:C2NR MICROSCOPIC EXAMINATION: Histologic sections of all submitted blocks are examined by light microscopy. These findings, together with the gross examination, support the pathologic diagnosis. GROSS DESCRIPTION: The specimen, labeled "AK," and designated on the requisition "cold cup biopsy, left bladder wall," is received in formalin and consists of a Telfa pad containing one, 0.2 cm in greatest dimension, cage, soft to rubbery tissue fragment. The specimen is submitted in toto in one cassette (A1). AI (under the direct supervision of a pathologist) The Gross Description was prepared using a voice recognition system. The report was reviewed for accuracy; however, sound-alike word errors, addition and/or deletions may occur. If there is any question about this report, please contact Client Services. PERFORMING LABORATORY: The technical component was performed by [facility], [address] [place] [id number] (CLIA# [id number]). The professional interpretation was performed by [facility], [facility], [address] [place] [address] [address] (CLIA#: [id number]). Diagnostician: Chano Lyman MD Pathologist Electronically Signed 10/19/2021 PATIENT NAME: DIAMANTE MASSEY PATHOLOGY DATE OF : 40 REPORT #: [id number] PHYSICIAN: KENDRA PATHOLOGY PCP: [place] MARTINEZ MD REPORT IS CONFIDENTIAL AND NOT TO BE RELEASED WITHOUT AUTHORIZATION [address] [address] Signed Copies: ~ PATIENT NAME: DIAMANTE MASSEY PATHOLOGY DATE OF : 40 REPORT #: [id number] PHYSICIAN: KENDRA PATHOLOGY PCP: [place] MARTINEZ MD REPORT IS CONFIDENTIAL AND NOT TO BE RELEASED WITHOUT AUTHORIZATION
== END 2021-10-17 11:35 | disposition home or self-care (01) ==
LOC: DS 06:55
PROVIDERS: ATTEND Urology
PROC: 0TBB8ZX Excision of Bladder, Via Natural or Artificial Opening Endoscopic, Diagnostic (ICD-10-PCS; principal; 2021-10-17 08:30)
DX: N32.89 Other specified disorders of bladder (principal); N32.81 Overactive bladder; E78.5 Hyperlipidemia, unspecified; I10 Essential (primary) hypertension; K21.9 Gastro-esophageal reflux disease without esophagitis; G30.9 Alzheimer's disease, unspecified; F02.80 Dementia in other diseases classified elsewhere, unspecified severity, without behavioral disturbance, psychotic disturbance, mood disturbance, and anxiety; E89.0 Postprocedural hypothyroidism; Z85.51 Personal history of malignant neoplasm of bladder; Z85.54 Personal history of malignant neoplasm of ureter; Z96.653 Presence of artificial knee joint, bilateral; Z96.641 Presence of right artificial hip joint
CPT/HCPCS: 74420; 74450; C1769; J0690; J1100; J1885; J2405; J2704; J2765; J3010; J7121; Q9958

== ENCOUNTER 2022-05-01 05:45 | Day surgery (SDC) | payer OTHER ==
[~2022-05-01] VITALS: Ht 177.8 cm; Wt 83.6 kg
--- NOTE | ~2022-05-01 | OR ---
[facility] [address] [place], [place] [address] Draft DATE OF OPERATION: 05/01/2022 SURGEON: Adri Bryant MD PREOPERATIVE DIAGNOSES: 1. 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 2. Secondary superficial low-grade bladder cancer. POSTOPERATIVE DIAGNOSES: 1. 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 2. Secondary superficial low-grade bladder cancer. 3. No obvious evidence of tumor recurrence on today's procedure. NAMES OF PROCEDURES: 1. Diagnostic cystoscopy with bilateral retrograde pyelogram. 2. Bladder biopsy with Bugbee fulguration. ANESTHESIA: General. ESTIMATED BLOOD LOSS: None. COMPLICATIONS: None. SPECIMENS: One bladder biopsy obtained from the patient's prior resection site. DRAINS: None. INDICATIONS FOR PROCEDURE: Mr. Thompson is a very pleasant 82-year-old gentleman who has a history of superficial low-grade distal urothelial carcinoma of the left ureter. He was initially diagnosed approximately three years ago and he has been undergoing surveillance cystoscopy with ureteroscopy since that time. He denies any issues with dysuria or gross hematuria recently and his overactive bladder is under good control with trospium chloride. He presents today to undergo another routine surveillance cystoscopy with bilateral retrograde pyelogram. PATIENT NAME: DIAMANTE THOMPSON OPERATIVE REPORT DATE OF : 40 REPORT #: [id number] PHYSICIAN: ADRI BRYANT MD PCP: [place] MARTINEZ MD REPORT IS CONFIDENTIAL AND NOT TO BE RELEASED WITHOUT AUTHORIZATION [facility] [address] [place], [place] [address] Draft OPERATIVE FINDINGS: 1. On cystoscopy, there was no evidence of any overt tumor recurrence. There is a 2-3 mm area of shagginess present and the central portion of the prior resection site just superior to the right ureteral orifice. This was biopsied using cold cup biopsy forceps and was then cauterized with Bugbee cautery. 2. Bilateral retrograde pyelograms were performed. I did not appreciate any filling defects in either ureter nor within the renal pelvis. There was also no evidence of any dilation in either renal pelvis. DESCRIPTION OF PROCEDURE: After informed consent was obtained, the patient was taken back to the operating room. [facility] to the operating room table where general anesthesia was induced. He was placed in the dorsal lithotomy position and his genitalia prepped and draped in standard sterile fashion. Using a 30-degree lens on a 22.5-Burkinan introducer, a rigid cystoscope was inserted through his urethra and into his bladder under direct visualization. Panendoscopic views of the bladder were then obtained. Please see above findings. I first turned my attention to the left ureteral orifice. A left retrograde pyelogram was performed. Please see above findings. I then turned my attention to the right ureteral orifice and again another retrograde pyelogram was performed using a cone-tipped catheter. The very small area present in the central aspect of the prior resection just superior to the left ureteral orifice was biopsied using cold cup forceps. This was performed without difficulty. I then used a Bugbee to cauterize the area. Once I was satisfied that hemostasis had been achieved, I removed the Bugbee and the cystoscope and drained the patient's bladder. The procedure was then terminated. The patient tolerated the procedure well without any complication. He will now be transferred to the postanesthesia care unit in stable condition. DISPOSITION: I discussed the details of today's procedure with the patient's and answered all of her questions. I told her today that there is no obvious evidence of tumor recurrence in the patient's bladder today. However, I did take a small piece of tissue in the central portion of his prior resection site just out of an abundance of caution. She will be notified of the pathology results in approximately 5-7 business days. Otherwise, he will return to clinic in six months for another H and P visit in preparation for another cystoscopy with bilateral retrograde pyelogram with possible bladder biopsy and possible ureteral biopsy to take place sometime in November 2022. Adri Bryant MD PATIENT NAME: DIAMANTE THOMPSON OPERATIVE REPORT DATE OF : 40 REPORT #: [id number] PHYSICIAN: ADRI BRYANT MD PCP: [place] MARTINEZ MD REPORT IS CONFIDENTIAL AND NOT TO BE RELEASED WITHOUT AUTHORIZATION [facility] [address] [place] [id number] Draft RYDER/MODL /[id number] Copies: ~ PATIENT NAME: SHILPADIAMANTEJacki ZABALA OPERATIVE REPORT DATE OF : 40 REPORT #: [id number] PHYSICIAN: ADRI BRYANT MD PCP: [place] MARTINEZ MD REPORT IS CONFIDENTIAL AND NOT TO BE RELEASED WITHOUT AUTHORIZATION
[~2022-05-01 05:45] MED LIST changes: +AMLODIPINE BESYL5 MG PO
--- NOTE | 2022-05-01 08:22 | NUR ---
05/01/22 0822 Adela Leavitt 0812- PT ARRIVES TO PACU REACTIVE TO STIMULI. PT DOES NOT FOLLOW COMMANDS OR ANSWER QUESTIONS AT THIS TIME. RESP EVEN AND UNLABORED. OXYGEN SAT HIGH 90'S TO 100% ON 6L VIA MASK. 0819- PT IS MORE AROUSABLE AND TALKING NOW. PT UPDATED THAT HIS SURGERY IS OVER AND HE IS IN THE RECOVERY ROOM. PT DENIES ANY PAIN OR NAUSEA. OXYGEN TITRATED OFF.
--- NOTE | 2022-05-01 08:50 | NUR ---
2069-PATIENT BACK ROOM FROM PACU ON . RECEIVED REPORT FROM MARY TORRSE. PATIENT IS AWAKE. RESP EVEN AND UNLABORED. DENIES PAIN AND NAUSEA. NO DRAINAGE NOTED. PROVIDED PATIENT WITH WATER. DECLINES SNACK AT THIS TIME. FAMILY IN ROOM. CALL LIGHT WITHIN REACH.
--- NOTE | 2022-05-01 09:50 | NUR ---
[id number]: PT RESTING IN BED AWAKE AND ALERT, DENIES ANY PAIN OR NAUSEA WHEN ASKED. DIETARY CALLED FOR CHOCOLATE PUDDING PER PT REQUEST. CALL LIGHT WITHIN REACH, ENCOURAGED TO USE WITH ANY NEEDS. [id number]: PUDDING DELAYED AND PT WOULD LIKE TO DC HOME, DRESSES SELF AND OPENS CURTAIN WHEN FINISHED. BRIAN BENTLEY IN TO GIVE DC INSTRUCTIONS AND REMOVE IV. PT DC VIA WC WITH SPOUSE TO HOME.
[2022-05-01] MEDS ORDERED: BACTRIM DS TAB1 EACH PO ×2 (09:52→09:53)
--- NOTE | 2022-05-04 15:17 | PATH ---
[facility] [address], [place] [address] Signed SPECIMEN(S): A BLADDER/URETERAL ORIFICE SPECIMEN SOURCE: A. BLADDER/URETERAL ORIFICE CLINICAL HISTORY: Small lesion, prior resection site bladder/ureteral orifice. FINAL PATHOLOGIC DIAGNOSIS: Bladder / ureteral orifice, biopsy: - Urothelium with mildly atypical features. - Negative for evidence of malignancy on these sections. - See comment. COMMENT: The urothelium is focally hyperplastic with mild atypia. A CK20 immunostain shows focal increased epithelial staining in this area, however, a P53 stain shows wild-type staining. The histologic features are interpreted to represent mild dysplastic features, negative for malignancy. As part of the [facility] [employer] Program, the case has been reviewed by a second Pathologist. LiliVR:DEBORAH:vikas:C2NR MICROSCOPIC EXAMINATION: Histologic sections of all submitted blocks are examined by light microscopy. These findings, together with the gross examination, support the pathologic diagnosis. Immunostains are performed with appropriate controls on block (A1) and show the following: - CK5: Focal basal staining in the area of concern. - CK20: Focal full-thickness urothelial staining. - P53: Wild-type staining in the area of concern. MONY:vikas GROSS DESCRIPTION: The specimen, labeled "KISHAN, A," and designated on the requisition "small lesion, prior resection site, bladder/ureteral orifice," is received in formalin and consists of one fragment of pink-cage soft tissue (0.3 cm in greatest dimension). The specimen is submitted entirely in cassette (A1). PATIENT NAME: DIAMANTE MASSEY PATHOLOGY DATE OF : 40 REPORT #: [id number] PHYSICIAN: KENDRA CLARK PCP: [place] MARTINEZ MD REPORT IS CONFIDENTIAL AND NOT TO BE RELEASED WITHOUT AUTHORIZATION [facility] [address] [place], [place] [address] Signed AC (under the direct supervision of a pathologist) The Gross Description was prepared using a voice recognition system. The report was reviewed for accuracy; however, sound-alike word errors, addition and/or deletions may occur. If there is any question about this report, please contact Client Services. ADDITIONAL NOTES: Immunohistochemical and/or in situ hybridization studies were performed on this case with the appropriate positive controls that react as expected. This test was developed and its performance characteristics determined by [facility]. It has not been cleared or approved by the U.S. Food and Drug Administration. The FDA has determined that such clearance or approval is not necessary. This test is used for clinical purposes. It should not be regarded as investigational or for research. [facility] is certified under the Clinical Laboratory Improvement Amendments of 1988 (CLIA) as qualified to perform high complexity clinical laboratory testing. This assay has not been validated for specimens that have been decalcified. PERFORMING LABORATORY: The technical component was performed by [facility], [address] [place] [id number] (CLIA# [id number]). Professional interpretation was performed by [facility] - [facility], [address] [place] [id number] (CLIA#: [id number]). Diagnostician: Jimmy Castanon MD Pathologist Electronically Signed 05/04/2022 Copies: ~ PATIENT NAME: SHILPADIAMANTEJacki ZABALA PATHOLOGY DATE OF : 40 REPORT #: [id number] PHYSICIAN: KENDRA PATHOLOGY PCP: [place] MARTINEZ MD REPORT IS CONFIDENTIAL AND NOT TO BE RELEASED WITHOUT AUTHORIZATION
== END 2022-05-01 10:15 | disposition home or self-care (01) ==
LOC: DS 05:45
PROVIDERS: ATTEND Urology
PROC: 0TBB8ZX Excision of Bladder, Via Natural or Artificial Opening Endoscopic, Diagnostic (ICD-10-PCS; principal; 2022-05-01 07:30)
PROC: 0T5B8ZZ Destruction of Bladder, Via Natural or Artificial Opening Endoscopic (ICD-10-PCS; 2022-05-01 07:30)
DX: C67.8 Malignant neoplasm of overlapping sites of bladder (principal); E03.9 Hypothyroidism, unspecified; E78.5 Hyperlipidemia, unspecified; I10 Essential (primary) hypertension; F32.A Depression, unspecified; K21.9 Gastro-esophageal reflux disease without esophagitis; G30.9 Alzheimer's disease, unspecified; F02.80 Dementia in other diseases classified elsewhere, unspecified severity, without behavioral disturbance, psychotic disturbance, mood disturbance, and anxiety; Z85.54 Personal history of malignant neoplasm of ureter
CPT/HCPCS: 74420; 88305; 88341; 88342; J0690; J2001; J2405; J2704; J7121; Q9967

== ENCOUNTER 2023-04-26 16:28 | Emergency (ER) | payer OTHER, MEDICARE ==
[~2023-04-26] VITALS: Ht 177.8 cm; Wt 84.2 kg
[~2023-04-26 16:28] MED LIST changes: +BACTRIM DS TAB1 EACH PO; +CELEXA10 MG PO; +COLACE100 MG PO
[2023-04-26 18:26] LABS: BASOPHILS 1.5 % (0-2); EOSINOPHILS 4.5 % (0-6); HEMATOCRIT 39.3 % (35.0-50.0); HEMOGLOBIN 13.3 g/dL (12.0-18.0); LYMPHOCYTES 17.3 % (24-44); MCH 32.9 (27-36); MCHC 33.7 g/dl (30-36); MCV 97.6 fl (81-99); MONOCYTES 10.6 % (0-12); NEUTROPHILS 66.1 % (39-80); PLATELET COUNT 256 K/uL (140-440); RBC 4.02 M/ul (4.3-5.7); RDW 13.8 (10.5-15.0)
[2023-04-26 18:45] LABS: ALBUMIN 3.5 g/dL (3.4-5.0); ANION GAP 10.9 (7-21); BILIRUBIN, TOTAL 0.4 ng/dL (0.2-1.0); BUN/CREATININE RATIO 13.09 (6.0-28.6); CALCIUM 9.7 mg/dL (8.5-10.1); CREATININE, SERUM 1.68 mg/dL (0.70-1.30); POTASSIUM 3.9 mmol/L (3.5-5.1)
[2023-04-26 19:33] LABS: BILIRUBIN, URINE NEGATIVE (negative); BLOOD/HGB, URINE TRACE-I (Negative); KETONE, URINE NEGATIVE (Negative); LEUK ESTERASE, URINE NEGATIVE (negative); NITRITE, URINE NEGATIVE (negative)
[2023-04-26 19:39] LABS: BACTERIA, URINE RARE /hpf (negative); CASTS, URINE HYALINE 1+ \\lpf; COLLECTION TYPE, URINE CLEAN CATCH; CRYSTALS, URINE NONE SEEN (0-1+); EPITHELIAL CELLS, URINE NONE SEEN /lpf (0-1+); REFLEX CULTURE, URINE No (No)
[2023-04-26] MEDS ORDERED: CEPHALEXIN500 M1 PO (19:53)
[2023-04-26] MEDS ORDERED: ONDANSETRON ODT8 MG PO (19:53)
[2023-04-26 20:37] VITALS: BP 140/86
== END 2023-04-26 20:39 | disposition home or self-care (01) ==
LOC: ED 16:28
PROVIDERS: Emergency Medicine
DX: N12 Tubulo-interstitial nephritis, not specified as acute or chronic (principal); R91.1 Solitary pulmonary nodule; I10 Essential (primary) hypertension; K21.9 Gastro-esophageal reflux disease without esophagitis; Z88.1 Allergy status to other antibiotic agents; Z79.890 Hormone replacement therapy; Z79.899 Other long term (current) drug therapy
CPT/HCPCS: 36415; 74177; 80053; 81001; 83690; 85025; 87088; 96361; 96375; 99284-25; J0696; J2405; J7030

== ENCOUNTER 2024-02-01 19:51 | Inpatient (IN) | payer OTHER, MEDICARE ==
[~2024-02-01] VITALS: Ht 175.3 cm; Wt 70.6 kg
[~2024-02-01 19:51] MED LIST changes: +CEPHALEXIN500 M1 PO; +INLYTA5 MG PO; +ONDANSETRON ODT8 MG PO; +SYNTHROID125 MCG PO; -SYNTHROID175 MCG PO
[2024-02-01 20:56] LABS: BASOPHILS 1.3 % (0-2); EOSINOPHILS 4.9 % (0-6); HEMATOCRIT 32.5 % (35.0-50.0); HEMOGLOBIN 10.7 g/dL (12.0-18.0); LYMPHOCYTES 5.4 % (24-44); MCH 31.4 (27-36); NEUTROPHILS 81.4 % (39-80); PLATELET COUNT 274 K/uL (140-440); RBC 3.42 M/ul (4.3-5.7)
[2024-02-01 21:17] LABS: ALBUMIN/GLOBULIN RATIO 0.81 (1.1-2.4); ALCOHOL, MEDICAL <3 ng/dL (<3); ALKALINE PHOSPHATASE 121 U/L (46-116); ALT (SGPT) 9 U/L (14-59); ANION GAP 16.1 (7-21); AST (SGOT) 19 U/L (15-37); BILIRUBIN, TOTAL 0.2 ng/dL (0.2-1.0); BUN/CREATININE RATIO 10.21 (6.0-28.6); CALCIUM 9.2 mg/dL (8.5-10.1); CARBON DIOXIDE 25 mmol/L (21-32); CHLORIDE 103 mmol/L (98-107); CREATININE, SERUM 2.35 mg/dL (0.70-1.30); GLOMERULAR FILTRATION RATE,EST 27 mL/min (>60); POTASSIUM 4.1 mmol/L (3.5-5.1); PROTEIN, TOTAL 6.7 g/dL (6.4-8.2); TSH, 3RD GENERATION 0.437 uIU/mL (0.358-3.740); UREA NITROGEN 24 mg/dL (7-18)
[2024-02-01 21:48] LABS: BILIRUBIN, URINE NEGATIVE (negative); BLOOD/HGB, URINE SMALL (Negative); KETONE, URINE NEGATIVE (Negative); LEUK ESTERASE, URINE NEGATIVE (negative); NITRITE, URINE NEGATIVE (negative)
[2024-02-01 21:58] LABS: BACTERIA, URINE RARE /hpf (negative); CASTS, URINE NONE SEEN \\lpf; COLLECTION TYPE, URINE CLEAN CATCH; CRYSTALS, URINE NONE SEEN (0-1+); EPITHELIAL CELLS, URINE SQUAMOUS 1+ /lpf (0-1+); REFLEX CULTURE, URINE Yes (No)
[2024-02-01] MEDS ORDERED: DEXAMETHASONE SOD PHOS 10 MG/ML VIAL IV ONE (22:15)
[2024-02-01] MEDS ORDERED: FAMOTIDINE 20 MG/ 2 ML VIAL IV SCH (22:24)
[2024-02-01] MEDS ORDERED: LORazepam 2 MG/ML VIAL IV PRN (22:30)
[2024-02-01] MEDS ORDERED: levETIRAcetam 500 MG/5 ML VIAL IV ONE (22:30)
--- NOTE | 2024-02-01 23:30 | NUR ---
PT BROUGHT TO MEDICAL FLOOR BY THIS RN. RECEIVED REPORT FROM BRIAN SCHWAB. VSS. PT ORIENTED TO SELF ONLY AT THIS TIME, REORIENTED TO PLACE, DATE, TIME AND EVENT. PT ASKED ABOUT WHAT BROUGHT HIM TO HOSPITAL APPROXIMATELY 2 MINUTES AFTER REORIENTING AND PT UNABLE TO RECALL EVENT. PUPILS PINPOINT, SLUGGISH BUT WITH NORMAL MOVEMENT. THIS RN HAS NOT SEEN PT EAT/DRINK AT THIS TIME, UNKNOWN NUTRITIONAL STATUS AT THIS TIME. PT ABLE TO STAND TO USE URINAL WHILE IN EMERGENCY ROOM, VOIDING WNL. SMALL AREA OF REDNESS LOCATED ON UNDERSIDE OF PENIS, CLINICAL MANAGER STATES PT HAD BEEN SOILED WITH URINE, STOOL AND EMESIS ON ARRIVAL. PT STATES NO NEEDS AT THIS TIME, CALL LIGHT EDUCATION, ROOM NEAR NURSES STATION, CALL LIGHT WITHIN REACH, BED ALARM ON FOR SAFETY.
[2024-02-01 23:33] VITALS: BP 127/60
--- NOTE | 2024-02-02 00:08 | NUR ---
THIS RN CALLS DR. MCCAIN TO CLARIFY CODE STATUS THERE ARE NO CURRENT CODE STATUS ORDERS. ASKS THIS RN "DOES IT NEED TO BE CHANGED RIGHT NOW OR CAN IT WAIT UNTIL THE MORNING". THIS RN STATES THAT CODE STATUS "SHOULD BE ORDERED SOON BECAUSE OF RIGHT NOW PT DOES NOT HAVE A CODE STATUS SO IF PT WERE TO CODE OVER NIGHT THEN HE WOULD BE CONSIDERED A FULL CODE". STATES "IF HE IS HERE FOR COMFORT MEASURES WE ARE JUST MANAGING SYMPTOMS SO IF SOMETHING HAPPENS WE ARE JUST GOING TO GIVE MEDICATIONS FOR IT". THIS RN STATES IF HE CODES PRIOR TO CODE STATUS BEING ESTABLISHED, PT WILL BE CONSIDERED A FULL CODE PER POLICY. STATES "OKAY, DO YOU HAVE ANY OTHER QUESTIONS". THIS RN HAS NO FURTHER QUESTIONS FOR MD REGARDING THIS PT AT THIS TIME.
--- NOTE | 2024-02-02 00:29 | NUR ---
PT RESTING ON RIGHT SIDE WITH EYES CLOSED, RESPIRATIONS EVEN AND UNLABORED, CALL LIGHT WITHIN REACH.
--- NOTE | 2024-02-02 01:26 | NUR ---
REPORT RECEIVED FROM ANTONY TORRES. PT RESTING IN BED, EYES CLOSED. RR EVEN, UNLABORED. CALL LIGHT IN REACH, BED ALARM ON.
--- NOTE | 2024-02-02 03:34 | NUR ---
PT RESTING IN BED, EYES CLOSED. RR EVEN, UNLABORED. CALL LIGHT IN REACH, BED ALARM ON.
--- NOTE | 2024-02-02 04:25 | NUR ---
PT BED ALARM SOUNDING. PT ASSISTED TO STAND AND USE URINAL. BEDDING CHANGED. PT STATES NO OTHER NEEDS. CALL LIGHT IN REACH, BED ALARM ON.
--- NOTE | 2024-02-02 05:29 | NUR ---
PT RESTING IN BED, EYES CLOSED. RR EVEN, UNLABORED. CALL LIGHT IN REACH, BED ALARM ON, RAILS UP.
--- NOTE | 2024-02-02 07:04 | NUR ---
PT RESTING IN BED, EYES CLOSED. RR EVEN, UNLABORED. BED ALARM ON, RAILS UP, CALL LIGHT IN REACH.
--- NOTE | 2024-02-02 07:39 | NUR ---
REPORT RECEIVED FROM NIGHT RN - PT RESTING IN BED WITH EYES CLOSED, RR EVEN AND UNLABORED. CALL LIGHT IN REACH.
--- NOTE | 2024-02-02 08:45 | NUR ---
ASSESSENT COMPLETE - PT ALERT RESTING IN BED BUT UNABLE TO ANSWER ANY ORIENTATION QUESTIONS DARCI. EXPRESSIVE APHASIA NOTED, FRUSTRATION WITH SPEAKING. PT STATES HE DOES NOT KNOW WHY HE IS IN HOSPITAL, STATES SHE HAS NOT TOLD HIM THE RESULTS OF THE CT YET. PT SWALLOWING WITHOUT DIFFICULTY. PT DENIES PAIN. UNINTERESTED IN BREAKFAST AT THIS TIME. ABLE TO STAND AT BEDSIDE TO USE URINAL WITH 2 PERSON ASSIST TO STEADY.
[2024-02-02] MEDS ORDERED: levETIRAcetam 500 MG TAB PO SCH (09:00)
[2024-02-02] MEDS ORDERED: DEXAMETHASONE SOD PHOS 10 MG/ML VIAL IV SCH (09:00)
--- NOTE | 2024-02-02 10:11 | NUR ---
RN ROUNDING ON PT - RESTING IN BED WATCHING TV WITH FAMILY SURROUNDED. PT DENIES NEEDS, CONTINUES TO SIP ON WATER. CALL LIGHT IN REACH.
[2024-02-02] MEDS ORDERED: LORazepam 0.5 MG TAB PO PRN (11:00)
[2024-02-02] MEDS ORDERED: ATROPINE SULFATE 1% OPTH DROPS SL PRN (11:00)
[2024-02-02] MEDS ORDERED: MAGNESIUM HYDROXIDE 30 ML UDC PO PRN (11:00)
[2024-02-02] MEDS ORDERED: ACETAMINOPHEN 500 MG TAB PO PRN (11:00)
[2024-02-02] MEDS ORDERED: ondansetron HCL 4 MG/2 ML VIAL IV PRN (11:00)
[2024-02-02] MEDS ORDERED: ARTIFICIAL TEARS 15 ML BTL OU PRN (11:00)
[2024-02-02] MEDS ORDERED: PROCHLORPERAZINE EDISYLATE 10 MG/2 ML VIAL IV PRN (11:00)
[2024-02-02] MEDS ORDERED: MAGNESIUM HYDROXIDE/AL HYDROX 30 ML CUP PO PRN (11:00)
[2024-02-02] MEDS ORDERED: OXYCODONE HCL 5 MG TAB PO PRN (11:15)
[2024-02-02] MEDS ORDERED: PHARMACY RENAL DOSE ADJUSTMENT 1 DOSE MISC PO SCH (12:00)
--- NOTE | 2024-02-02 13:00 | NUR ---
PT RESTING IN BED ON SIDE, RR EVEN AND UNLABORED. FAMILY AT BEDSIDE, STATE HE APPEARS COMFORTABLE AND DENY PT NEEDING ANYTHING AT THIS TIME. FAMILY REPORTS INTERMITANT ABILITY TO SPEAK THOUGHTS CLEARLY, EXPRESSIVE APHASIA AT OTHERS. PT CONTINUES TO DENY WANTING MEALS, DID EAT RASPBERRIES AND PIE BROUGHT IN BY FAMILY.
[2024-02-02 13:22] VITALS: BP 127/74
[2024-02-02] MEDS ORDERED: TRIAMCINOLONE A80 GM TOP (15:01)
--- NOTE | 2024-02-02 15:02 | NUR ---
MED REC COMPLETE
--- NOTE | 2024-02-02 16:23 | NUR ---
PT SITTING UP IN CHAIR WATCHING TV, APPEARS COMFORTABLE AND DENIES PAIN OR COMPLAINTS. PT REMAINS UNABLE TO ANSWER ORIENTATION QUESTIONS CORRECTLY BUT IS NOT AGGITATED OR APPEARING CONFUSED ABOUT SITUATION. REMAINS AT BEDSIDE, DENIES NEEDS. CALL LIGHT IN REACH.
--- NOTE | 2024-02-02 19:30 | NUR ---
REPORT RECEIVED FROM JAMES Duque RN. PT UP IN CHAIR, VISITING FAMILY. ORIENTED TO PERSON AND PLACE ONLY. ICE WATER PROVIDED. PT STATES NO OTHER NEEDS. CALL LIGHT IN REACH.
--- NOTE | 2024-02-02 20:30 | NUR ---
PT ASSISTED TO BR AND BACK TO BED. ICE WATER PROVIDED. SCHEDULED MED PROVIDED. PT ORIENTED TO PERSON AND PLACE ONLY. IV WNL, CDI. PT STATES NO OTHER NEEDS AT THIS TIME. CALL LIGHT IN REACH, BED ALARM ON, RAILS UP, DOOR OPEN.
[2024-02-02] MEDS ORDERED: MELATONIN 3 MG TAB PO PRN (21:00)
--- NOTE | 2024-02-02 21:22 | NUR ---
Assisted Pt SBA from bed to bathroom and back. Pt was mildly confused about surroundings, but understood and complied with all requests. No other needs expressed by Pt. Call light left in reach.
--- NOTE | 2024-02-02 22:00 | NUR ---
PT RESTING IN BED, EYES CLOSED. RR EVEN, UNLABORED. CALL LIGHT IN REACH, RAILS UP, BED ALARM ON.
--- NOTE | 2024-02-02 23:00 | NUR ---
PT RESTING IN BED, EYES CLOSED. RR EVEN, UNLABORED. CALL LIGHT IN REACH, BED ALARM ON, RAILS UP, DOOR OPEN.
[2024-02-03] VITALS (7 sets, daily range): BP systolic 128–145; BP diastolic 58–77
--- NOTE | 2024-02-03 00:23 | NUR ---
PT RESTING IN BED, EYES CLOSED. RR EVEN, UNLABORED. CALL LIGHT IN REACH, BED ALARM ON, RAILS UP, DOOR OPEN.
--- NOTE | 2024-02-03 01:43 | NUR ---
PT RESTING, TURNS AND REPOSITIONS SELF IN BED, NO S/SX DISTRESS.
--- NOTE | 2024-02-03 03:11 | NUR ---
RESTING, EYS CLOSED, ON HIS BACK. NO DISTRESS
--- NOTE | 2024-02-03 05:20 | NUR ---
PT AWAKE, PLEASANT, ALERT TO ALL, TURNS AND REPOSITIONS SELF IN BED. COOPERATIVE WITH VITALS AND ASSESSMENT.
--- NOTE | 2024-02-03 07:30 | NUR ---
PT RESTING EYES CLOSED AT TIME OF SHIFT REPORT, LEFT UNDISTURBED. BREATHING EVEN AND UNLABORED, BED ALARM IS ON, FRESH H20 TO BEDSIDE. CALL LIGHT AND NEEDED ITEMS IN REACH.
--- NOTE | 2024-02-03 08:24 | NUR ---
PT AWAKE NOW, SON IS PRESENT. PT ASSISTED TO MOVE UPRIGHT IN BED FOR MORNING MEAL. SON IS ACTIVELY ASSISTING.
--- NOTE | 2024-02-03 08:54 | NUR ---
PT UP TO THE TOILET TO VOID SBA WITH STAFF. NOC RN REPORTED NO URINE OUTPUT ON HER SHIFT, PT PASSES ADEQUATE URINE AT THIS TIME. SON REMAINS IN THE ROOM PT IS SELF FEEDING BREAKFAST WATCHING GOLF
[2024-02-03] MEDS ORDERED: FAMOTIDINE 20 MG/ 2 ML VIAL IV SCH (09:00)
--- NOTE | 2024-02-03 09:35 | NUR ---
PT EATS NEARLY ALL OF MORNING MEAL DENIES FURTHER NEED. FAMILY PRESENT X3 VISITING AND WATCHING GOLF. FRESH H20 AND NEEDED ITEMS IN REACH
--- NOTE | 2024-02-03 10:38 | NUR ---
PT IS DOZING NOW, FAMILY REMAIN AT BEDSIDE
--- NOTE | 2024-02-03 12:19 | NUR ---
PT DENIES NEED TO TOILET AND AGREES HE IS COMFORTABLE. FAMILY REMAIN AT BEDSIDE WATCHING TV WITH HIM
--- NOTE | 2024-02-03 13:06 | NUR ---
PT TO BATHROOM, VOIDS IN TOILET DECLINING URINAL. AMOUNT APPEARS ADEQUATE. PT RETURNS TO SIT IN THE RECLINER WITH NOON MEAL, FAMILY X3 ARE PRESENT.
--- NOTE | 2024-02-03 14:35 | NUR ---
PT IS UP IN THE CHAIR EATING A SNACK SEVERAL FAMILY MEMBERS PRESENT TALKING AND LAUGHING. PT APPEARS CHEERFUL AGREES HE IS COMFORTABLE AND DENIES NEED TO TOILET OR OTHER
--- NOTE | 2024-02-03 16:25 | NUR ---
PT RESTING IN BED WATCHING TV SON IS AT BEDSIDE. DENIES NEEDS OR CONCERNS
--- NOTE | 2024-02-03 17:54 | NUR ---
PT UP TO THE TOILET THEN TO THE RECLINER FOR EVENING MEAL. HE DENIES DISCOMFORTS OR NEEDS. NO SIEZURE ACTIVITY WITNESSED THIS SHIFT. FAMILY CONTINUE IN THE ROOM
[2024-02-04] MEDS ORDERED: dexAMETHasone 4 MG TAB PO SCH
--- NOTE | 2024-02-04 00:33 | NUR ---
RESTING, EYES CLOSED, NO S/SX DISTRESS, SEIZURE PADS IN PLACE, BED ALARM, FLUIDS AT HANDS REACH
--- NOTE | 2024-02-04 01:05 | NUR ---
BED ALARM GOING OFF, PT CRAWLED OUT OF BED OVER SEIZURE PADS THAT WERE PLACED OVER RAILS EARLIER. UP TO BRP W 1PA. BACK TO BED, TOLERATED WELL, SEIZURE PADS IN PLACE, BED ALARM ON
--- NOTE | 2024-02-04 02:29 | NUR ---
RESTING, EYES CLOSED, NO S/SX DISTRESS, SEIZURE PADS IN PLACE, BED ALARM
[2024-02-04 05:38] VITALS: BP 141/71
--- NOTE | 2024-02-04 05:43 | NUR ---
Has slept well this shift. Awake, no c/o pain, alert to self and place. turns self in bed. Seizure pads and bed alarmin place. Fall precautions.
--- NOTE | 2024-02-04 07:18 | NUR ---
REPORT FROM TIERRA, RN
--- NOTE | 2024-02-04 07:57 | NUR ---
PATIENT RESTING IN BED AT THIS TIME. CALL LIGHT WITHIN REACH, NO FURTHER NEEDS AT THIS TIME.
--- NOTE | 2024-02-04 08:33 | NUR ---
MORNING ASSESSMENT IS COMPLETE. PATIENT PULLED LEFT A/C IV, SITE IS NORMAL AND NO BLEEDING. CALL TO DR. CALDERÓN TO CHANGE PATIENT'S IV MEDICATIONS TO PO. PATIENT IS SITTING UP IN BED TO EAT BREAKFAST. PATIENT'S FAMILY IN TO VISIT AND BED ALARM IS OFF AT THIS TIME. PATIENT DENIES PAIN AND NAUSEA, IS EATING BREAKFAST WELL, NO ASPIRATION PROBLENS NOTED. PATIENT IS SWALLOWING PILLS WELL. NO OTHER NEEDS AT THIS.
[2024-02-04] MEDS ORDERED: dexAMETHasone 4 MG TAB ONE (08:37)
[2024-02-04] MEDS ORDERED: DEXAMETHASONE SOD PHOS 10 MG/ML VIAL PO SCH (09:00)
[2024-02-04] MEDS ORDERED: FAMOTIDINE 20 MG TAB PO SCH (09:00)
--- NOTE | 2024-02-04 09:22 | NUR ---
CLINICALS FAXED TO [facility]
--- NOTE | 2024-02-04 09:22 | NUR ---
DISCUSSED PLAN OF CARE FOR DC WITH AND DAUGHTER. PATIENT IN ROOM. DOES NOT ANSWER QUESTIONS. IS WITH PATIENT MOST OF THE TIME. STATES SHE HAS A FRIEND COMING IN TO ASSIST WITH CAREGIVING. DAUGHTERS AND SON WILL ALSO BE ASSISTING WITH CARE. SPOKE WITH [facility] AT HOSPICE, THEY ARE ABLE TO ADMIT PATIENT TOMORROW. STATES SHE HAS ENOUGH HELP, PATIENT HAS BEEN REQUESTING TO GO HOME. WOULD LIKE TO DC TO HOME TODAY. DENIES ANY NEEDS SUCH HOSPITAL BED OR OTHER EQUIPMENT AT THIS TIME. BEDROOM IS APPROXIMATELY 10 STEPS FROM BATHROOM. PATIENT IS STILL ABLE TO AMBULATE THAT DISCTANCE AT THIS TIME. WILL INFORM DR. CALDERÓN OF PLAN.
[2024-02-04 09:46] VITALS: BP 137/76
--- NOTE | 2024-02-04 10:08 | NUR ---
PATIENT IS RESTING IN BED, FAMILY AT BEDSIDE, PATIENT DENIES NEEDS AT THIS TIME.
--- NOTE | 2024-02-04 10:45 | NUR ---
UR CLINICAL REVIEW: 2 MN FOR [facility] INPT CRITERIA MEDICARE OBS TO INPT 02/02/22 @ 2580 EMAIL SENT TO UPDATE REG NO AUTH REQUIRED PER MEDICARE GUIDELINES DISCHARGE TO HOME WITH HOSPICE SERVICES.
[2024-02-04] MEDS ORDERED: KEPPRA500 MG PO (11:19)
[2024-02-04] MEDS ORDERED: DEXAMETHASONE4 MG PO (11:19)
[2024-02-05] MEDS ORDERED: dexAMETHasone 4 MG TAB PO SCH (08:00)
== END 2024-02-04 11:35 | disposition home or self-care (01) | DRG 55 ==
LOC: ED 19:51 → MS 19:53
PROVIDERS: Internal Medicine; ADMIT Family Medicine; ATTEND Family Medicine
DX: C79.31 Secondary malignant neoplasm of brain (principal); C64.9 Malignant neoplasm of unspecified kidney, except renal pelvis; C78.00 Secondary malignant neoplasm of unspecified lung; R56.9 Unspecified convulsions; Z51.5 Encounter for palliative care; Z66 Do not resuscitate; I10 Essential (primary) hypertension; K21.9 Gastro-esophageal reflux disease without esophagitis; E03.9 Hypothyroidism, unspecified; F39 Unspecified mood [affective] disorder; Z98.890 Other specified postprocedural states; Z88.2 Allergy status to sulfonamides; Z88.8 Allergy status to other drugs, medicaments and biological substances; Z79.899 Other long term (current) drug therapy; Z85.850 Personal history of malignant neoplasm of thyroid; Z79.890 Hormone replacement therapy
CPT/HCPCS: 36415; 70450; 71045; 80053; 81001; 84443; 84484; 85025; 87088; A9270; G0480; J1100; J1953; J8540